=== PATIENT | female | born 1980 | race American Indian/Alaskan Native ===

== ENCOUNTER 2016-10-17 14:18 | Inpatient (IN) | payer OTHER ==
[2016-10-17 15:25] LABS: Anion Gap 16 mmol/L; BUN/Creatinine Ratio 14.28; Blood Urea Nitrogen 10 mg/dL (7-17); Carbon Dioxide 24 mmol/L (22-30); Chloride 104.9 mmol/L (98-107); Glucose 79 mg/dL (65-100); Mean Corpuscular HGB Conc 28 % (30-34); Platelet Count 385 K/mm3 (140-440); Potassium 3.4 mmol/L (3.6-5.0); Red Blood Count 4.18 M/mm3 (3.65-5.03); Sodium 141 mmol/L (137-145); White Blood Count 3.7 K/mm3 (4.5-11.0)
[2016-10-17 15:30] LABS: Hematocrit 24.9 % (30.3-42.9); Hemoglobin 6.9 gm/dl (10.1-14.3); Mean Corpuscular Hemoglobin 17 pg (28-32); Mean Corpuscular Volume 60 fl (79-97); Red Cell Distribution Width 21.7 % (13.2-15.2)
[2016-10-17 16:44] LABS: Blastocytes % (Manual) 0 %
[2016-10-17 16:47] LABS: Anisocytosis 1+
[2016-10-17 16:48] LABS: Diff Status Complete; Elliptocytes Few; Hypochromasia 2+; Microcytosis 1+; Platelet Estimate Consistent w Auto; Stomatocytes Few; Tear Drop Cells Few
[2016-10-17] MEDS ORDERED: NACL 0.9% 500 ML 500 ML IV ONE ×2 (17:49→22:08)
--- NOTE | 2016-10-17 17:53 | Emergency Department Report ---
ED Chest Pain HPI - General Chief Complaint: Chest Pain Stated Complaint: CHEST PAIN Time Seen by Provider: 10/17/16 17:38 Source: patient Mode of arrival: Ambulatory Limitations: No Limitations - History of Present Illness Initial Comments: 35-year-old female with a past medical history of anemia and status post fibroid removal presents to the hospital complains of chest and shortness of breath. Patient has had dyspnea on exertion for about 2 months. Intermittent sharp anterior substernal chest pain starting yesterday. No aggravating or alleviating factors reported. Pain rated 7/10 in intensity. Patient has a history of anemia. She is not sure of the cause of the anemia. Past medical chart review shows patient has been prescribed iron tablets in the past. Patient denies previous history of blood transfusion. She states she has heavy menstrual cycles. Patient uses approximately 6-7 pads per day. Last menstrual cycle was 10/05/2016 7 days. Patient noticed that she began bleeding again today when she went to the bathroom. Severity scale (0 -10): 5 - Related Data Home Medications Medication Instructions Recorded Confirmed Last Taken Ferrous Sulfate [Iron Supplement] 325 mg PO DAILY 08/26/14 10/17/16 06/15/15 Allergies Allergy/AdvReac Type Severity Reaction Status Date / Time No Known Allergies Allergy Verified 11/08/15 08:56 GAMA score - Gama Score Age > 65: (0) No Aspirin use within the Past 7 Days: (0) No 3 or more CAD Risk Factors: (0) No 2 or more Angina events in past 24 hrs: (0) No Known CAD with more than 50% Stenosis: (0) No Elevated Cardiac Markers: (0) No ST Deviation Greater than 0.5mm: (0) No GAMA Score: 0 ED Review of Systems ROS: Stated complaint: CHEST PAIN Other details as noted in HPI Comment: All other systems reviewed and negative Other: Constitutional: No fevers chills or weight loss Eyes: No eye pain visual changes or discharge ENT: No ear pain or throat pain Neck: Denies pain Respiratory: Denies cough wheezing Cardiovascular: As per HPI GI: Denies abdominal pain, nausea, vomiting, diarrhea : Denies dysuria, urinary frequency, or urgency Musculoskeletal: Denies back pain, joint swelling Skin: Denies rash, lesions, erythema Neurologic: Denies headache, numbness, weakness Psychiatric: Denies suicidal ideation, hallucinations ED Past Medical Hx - Past Medical History Hx Hypertension: No Hx Congestive Heart Failure: No Hx Diabetes: No Hx Renal Disease: No Hx Headaches / Migraines: Yes Hx Asthma: No Hx COPD: No Additional medical history: Anemia - Surgical History Additional Surgical History: csection x 2, Fibroid tumor removal - Social History Smoking Status: Never Smoker Substance Use Type: None - Medications Home Medications: Home Medications Medication Instructions Recorded Confirmed Last Taken Type Ferrous Sulfate [Iron Supplement] 325 mg PO DAILY 08/26/14 10/17/16 06/15/15 History ED Physical Exam - General Limitations: No Limitations - Other Other exam information: General: No limitations, patient is alert in no acute distress Head exam: Atraumatic, normocephalic Eyes exam: Normal appearance ENT: Moist mucous membrane, normal oropharynx Neck exam: Normal inspection Respiratory exam: Clear to auscultation bilateral, no wheezes, rales, crackles Cardiovascular: Normal rate and rhythm, normal heart sounds Abdomen: Soft, nondistended, and nontender, with normal bowel sounds, no rebound, or guarding Extremity: Full range of motion normal inspection no deformity, no calf tenderness or edema Back: Normal Inspection, full range of motion, no tenderness Neurologic: Alert, oriented x3, cranial nerves intact, no motor or sensory deficit Psychiatric: normal affect, normal mood Skin: Warm, dry, intact ED Course Vital Signs 10/17/16 10/17/16 10/17/16 14:39 17:38 17:39 Temperature 98.5 F Pulse Rate 83 81 Respiratory 18 18 13 Rate Blood Pressure 117/68 137/85 O2 Sat by Pulse 100 98 100 Oximetry 10/17/16 10/17/16 10/17/16 17:41 17:43 17:45 Temperature Pulse Rate 82 75 80 Respiratory 21 11 L 12 Rate Blood Pressure 137/85 137/85 131/75 O2 Sat by Pulse 100 100 100 Oximetry 10/17/16 10/17/16 10/17/16 17:47 17:49 17:51 Temperature Pulse Rate 73 73 67 Respiratory 17 12 13 Rate Blood Pressure 131/75 131/75 131/75 O2 Sat by Pulse 100 100 Oximetry 10/17/16 10/17/16 10/17/16 17:53 17:55 17:57 Temperature Pulse Rate 69 66 69 Respiratory 13 16 14 Rate Blood Pressure 131/75 131/75 131/75 O2 Sat by Pulse 100 100 100 Oximetry 10/17/16 10/17/16 10/17/16 17:59 18:01 18:03 Temperature Pulse Rate 67 71 71 Respiratory 21 13 16 Rate Blood Pressure 131/75 131/75 131/75 O2 Sat by Pulse 100 100 100 Oximetry 10/17/16 10/17/16 10/17/16 18:05 18:07 18:09 Temperature Pulse Rate 76 68 69 Respiratory 19 22 19 Rate Blood Pressure 131/75 131/75 131/75 O2 Sat by Pulse 100 100 100 Oximetry 10/17/16 10/17/16 10/17/16 18:11 18:13 18:15 Temperature Pulse Rate 69 71 70 Respiratory 16 13 13 Rate Blood Pressure 131/75 131/75 131/75 O2 Sat by Pulse 100 100 100 Oximetry ED Medical Decision Making - Lab Data Result diagrams: 10/17/16 14:58 10/17/16 14:58 Lab Results 10/17/16 10/17/16 Range/Units 14:58 14:58 WBC 3.7 L (4.5-11.0) K/mm3 RBC 4.18 (3.65-5.03) M/mm3 Hgb 6.9 L (10.1-14.3) gm/dl Hct 24.9 L (30.3-42.9) % MCV 60 L (79-97) fl MCH 17 L (28-32) pg MCHC 28 L (30-34) % RDW 21.7 H (13.2-15.2) % Plt Count 385 (140-440) K/mm3 Lymph % (Auto) [employer] [place] % (Auto) [employer] Eos % (Auto) [employer] Baso % (Auto) [employer] Lymph # [employer] [place] # [employer] Eos # [employer] Baso # [employer] Add Manual Diff Complete Total Counted 100 Seg Neutrophils % [employer] Seg Neuts % (Manual) 54.0 (40.0-70.0) % Band Neutrophils % 1.0 % Lymphocytes % (Manual) 35.0 (13.4-35.0) % Reactive Lymphs % (Man) 1.0 % Monocytes % (Manual) 5.0 (0.0-7.3) % Eosinophils % (Manual) 3.0 (0.0-4.3) % Basophils % (Manual) 1.0 (0.0-1.8) % Metamyelocytes % 0 % Myelocytes % 0 % Promyelocytes % 0 % Blast Cells % 0 % Nucleated RBC % Not Reportable Seg Neutrophils # [employer] Seg Neutrophils # Man 2.0 (1.8-7.7) K/mm3 Band Neutrophils # 0.0 K/mm3 Lymphocytes # (Manual) 1.3 (1.2-5.4) K/mm3 Abs React Lymphs (Man) 0.0 K/mm3 Monocytes # (Manual) 0.2 (0.0-0.8) K/mm3 Eosinophils # (Manual) 0.1 (0.0-0.4) K/mm3 Basophils # (Manual) 0.0 (0.0-0.1) K/mm3 Metamyelocytes # 0.0 K/mm3 Myelocytes # 0.0 K/mm3 Promyelocytes # 0.0 K/mm3 Blast Cells # 0.0 K/mm3 WBC Morphology Not Reportable Hypersegmented Neuts Not Reportable Hyposegmented Neuts Not Reportable Hypogranular Neuts Not Reportable Smudge Cells Not Reportable Toxic Granulation Not Reportable Toxic Vacuolation Not Reportable Dohle Bodies Not Reportable Pelger-Huet Anomaly Not Reportable Thais Rods Not Reportable Platelet Estimate Consistent w auto Clumped Platelets Not Reportable Plt Clumps, EDTA Not Reportable Large Platelets Not Reportable Giant Platelets Not Reportable Platelet Satelliting Not Reportable Plt Morphology Comment Not Reportable RBC Morphology Not Reportable Dimorphic RBCs Not Reportable Polychromasia Not Reportable Hypochromasia 2+ Poikilocytosis Not Reportable Anisocytosis 1+ Microcytosis 1+ Macrocytosis Not Reportable Spherocytes Not Reportable Pappenheimer Bodies Not Reportable Sickle Cells Not Reportable Target Cells Not Reportable Tear Drop Cells Few Ovalocytes Not Reportable Stomatocytes Few Helmet Cells Not Reportable [place] Bodies Not Reportable [place] Rings Not Reportable Catherine Cells Not Reportable Bite Cells Not Reportable Crenated Cell Not Reportable Elliptocytes Few Acanthocytes (Spur) Not Reportable Rouleaux Not Reportable Hemoglobin C Crystals Not Reportable Schistocytes Not Reportable Malaria parasites Not Reportable Kana Bodies Not Reportable Hem Pathologist Commnt No Sodium 141 (137-145) mmol/L Potassium 3.4 L (3.6-5.0) mmol/L Chloride 104.9 (98-107) mmol/L Carbon Dioxide 24 (22-30) mmol/L Anion Gap 16 mmol/L BUN 10 (7-17) mg/dL Creatinine 0.7 (0.7-1.2) mg/dL Estimated GFR > 60 ml/min BUN/Creatinine Ratio 14.28 % Glucose 79 (65-100) mg/dL Calcium 9.0 (8.4-10.2) mg/dL Troponin T < 0.010 (0.00-0.029) ng/mL urine negative. - EKG Data When compared to previous EKG there are: no significant change (sinus rhythm 69 nonspecific T-wave abnormalities) - Medical Decision Making Plan to admit patient to hospital for treatment of symptomatic anemia. 2 units of RBCs ordered. By mouth potassium given. Iron studies pending - Differential Diagnosis anemia, PE, unstable angina, atypical chest pain Critical Care Time: No Critical care attestation.: If time is entered above; I have spent that time in minutes in the direct care of this critically ill patient, excluding procedure time. ED Disposition Clinical Impression: Symptomatic anemia, Menorrhagia, Hypokalemia, Atypical chest pain, Iron deficiency anemia Disposition: OP ADMITTED IP TO THIS HOSP Is pt being admited?: Yes Condition: Stable Time of Disposition: 17:52 (Dr. Malik/[facility])
[2016-10-17] MEDS ORDERED: K-DUR PO ONE (18:01)
--- NOTE | 2016-10-17 23:38 | History and Physical Report ---
History of Present Illness Date of examination: 10/17/16 Date of admission: 10/17/16 17:53 Chief complaint: Feeling weak History of present illness: 35-year-old female with a past medical history of anemia and status post fibroid removal presents to the hospital complains of chest and shortness of breath. Patient has had dyspnea on exertion for about 2 months. Intermittent sharp anterior substernal chest pain starting yesterday. No aggravating or alleviating factors reported. Pain rated 7/10 in intensity. Patient has a history of anemia. She is not sure of the cause of the anemia. Past medical chart review shows patient has been prescribed iron tablets in the past. Patient denies previous history of blood transfusion. She states she has heavy menstrual cycles. Patient uses approximately 6-7 pads per day. Last menstrual cycle was 10/05/2016 7 days. Patient noticed that she began bleeding again today when she went to the bathroom. Past History Past Medical History: anemia Past Surgical History: Other (Fibroid removal) Social history: no significant social history, lives with family, full code Medications and Allergies Allergies Allergy/AdvReac Type Severity Reaction Status Date / Time No Known Allergies Allergy Verified 11/08/15 08:56 Home Medications Medication Instructions Recorded Confirmed Last Taken Type Ferrous Sulfate [Iron Supplement] 325 mg PO DAILY 08/26/14 10/17/16 06/15/15 History Review of Systems All systems: negative Constitutional: no weight loss, no weight gain Ears, nose, mouth and throat: hoarseness, sore throat Breasts: deferred Cardiovascular: chest pain, dyspnea on exertion Respiratory: no cough with sputum, no congestion Gastrointestinal: no nausea, no vomiting Genitourinary Female: menorrhagia, no dysuria, no urinary frequency, no urgency , no stress incontinence Menstruation: ammenorrhea, period heavy Musculoskeletal: no neck pain, no myalgias Integumentary: no rash, no pruritis, no redness, no sores Neurological: no paralysis, no weakness, no parathesias Psychiatric: no hypersomnia, no suicidal ideation Endocrine: no cold intolerance, no heat intolerance, no polydipsia, no polyuria Hematologic/Lymphatic: no easy bruising, no easy bleeding Allergic/Immunologic: no urticaria, no allergic rhinitis, no wheezing Exam - Constitutional Vitals: Temp Pulse Resp BP Pulse Ox 98.2 F 63 16 126/76 100 10/17/16 23:15 10/17/16 23:15 10/17/16 23:15 10/17/16 23:15 10/17/16 18:15 General appearance: Present: no acute distress, well-nourished - EENT Eyes: Present: PERRL ENT: hearing intact, clear oral mucosa - Neck Neck: Present: supple, normal ROM - Respiratory Respiratory effort: normal Respiratory: bilateral: CTA - Cardiovascular Heart Sounds: Present: S1 & S2. Absent: rub, click - Extremities Extremities: pulses symmetrical, No edema Peripheral Pulses: within normal limits - Abdominal General gastrointestinal: Present: soft, non-tender, non-distended, normal bowel sounds Female genitourinary: Present: normal - Integumentary Integumentary: Present: clear, warm, dry - Musculoskeletal Musculoskeletal: gait normal, strength equal bilaterally - Psychiatric Psychiatric: appropriate mood/affect, intact judgment & insight - Neurologic Neurologic: CNII-XII intact, moves all extremities Results - Labs CBC & Chem 7: 10/18/16 07:56 10/18/16 07:56 Labs: Laboratory Last Values WBC 3.7 K/mm3 (4.5-11.0) L 10/17/16 14:58 RBC 4.18 M/mm3 (3.65-5.03) 10/17/16 14:58 Hgb 6.9 gm/dl (10.1-14.3) L 10/17/16 14:58 Hct 24.9 % (30.3-42.9) L 10/17/16 14:58 MCV 60 fl (79-97) L 10/17/16 14:58 MCH 17 pg (28-32) L 10/17/16 14:58 MCHC 28 % (30-34) L 10/17/16 14:58 RDW 21.7 % (13.2-15.2) H 10/17/16 14:58 Plt Count 385 K/mm3 (140-440) 10/17/16 14:58 Lymph % (Auto) Hydraulics Engineer 10/17/16 14:58 [place] % (Auto) Hydraulics Engineer 10/17/16 14:58 Eos % (Auto) Hydraulics Engineer 10/17/16 14:58 Baso % (Auto) Hydraulics Engineer 10/17/16 14:58 Lymph # Hydraulics Engineer 10/17/16 14:58 [place] # Hydraulics Engineer 10/17/16 14:58 Eos # Hydraulics Engineer 10/17/16 14:58 Baso # Hydraulics Engineer 10/17/16 14:58 Add Manual Diff Complete 10/17/16 14:58 Total Counted 100 10/17/16 14:58 Seg Neutrophils % Hydraulics Engineer 10/17/16 14:58 Seg Neuts % (Manual) 54.0 % (40.0-70.0) 10/17/16 14:58 Band Neutrophils % 1.0 % 10/17/16 14:58 Lymphocytes % (Manual) 35.0 % (13.4-35.0) 10/17/16 14:58 Reactive Lymphs % (Man) 1.0 % 10/17/16 14:58 Monocytes % (Manual) 5.0 % (0.0-7.3) 10/17/16 14:58 Eosinophils % (Manual) 3.0 % (0.0-4.3) 10/17/16 14:58 Basophils % (Manual) 1.0 % (0.0-1.8) 10/17/16 14:58 Metamyelocytes % 0 % 10/17/16 14:58 Myelocytes % 0 % 10/17/16 14:58 Promyelocytes % 0 % 10/17/16 14:58 Blast Cells % 0 % 10/17/16 14:58 Nucleated RBC % Not Reportable 10/17/16 14:58 Seg Neutrophils # Hydraulics Engineer 10/17/16 14:58 Seg Neutrophils # Man 2.0 K/mm3 (1.8-7.7) 10/17/16 14:58 Band Neutrophils # 0.0 K/mm3 10/17/16 14:58 Lymphocytes # (Manual) 1.3 K/mm3 (1.2-5.4) 10/17/16 14:58 Abs React Lymphs (Man) 0.0 K/mm3 10/17/16 14:58 Monocytes # (Manual) 0.2 K/mm3 (0.0-0.8) 10/17/16 14:58 Eosinophils # (Manual) 0.1 K/mm3 (0.0-0.4) 10/17/16 14:58 Basophils # (Manual) 0.0 K/mm3 (0.0-0.1) 10/17/16 14:58 Metamyelocytes # 0.0 K/mm3 10/17/16 14:58 Myelocytes # 0.0 K/mm3 10/17/16 14:58 Promyelocytes # 0.0 K/mm3 10/17/16 14:58 Blast Cells # 0.0 K/mm3 10/17/16 14:58 WBC Morphology Not Reportable 10/17/16 14:58 Hypersegmented Neuts Not Reportable 10/17/16 14:58 Hyposegmented Neuts Not Reportable 10/17/16 14:58 Hypogranular Neuts Not Reportable 10/17/16 14:58 Smudge Cells Not Reportable 10/17/16 14:58 Toxic Granulation Not Reportable 10/17/16 14:58 Toxic Vacuolation Not Reportable 10/17/16 14:58 Dohle Bodies Not Reportable 10/17/16 14:58 Pelger-Huet Anomaly Not Reportable 10/17/16 14:58 Thais Rods Not Reportable 10/17/16 14:58 Platelet Estimate Consistent w auto 10/17/16 14:58 Clumped Platelets Not Reportable 10/17/16 14:58 Plt Clumps, EDTA Not Reportable 10/17/16 14:58 Large Platelets Not Reportable 10/17/16 14:58 Giant Platelets Not Reportable 10/17/16 14:58 Platelet Satelliting Not Reportable 10/17/16 14:58 Plt Morphology Comment Not Reportable 10/17/16 14:58 RBC Morphology Not Reportable 10/17/16 14:58 Dimorphic RBCs Not Reportable 10/17/16 14:58 Polychromasia Not Reportable 10/17/16 14:58 Hypochromasia 2+ 10/17/16 14:58 Poikilocytosis Not Reportable 10/17/16 14:58 Anisocytosis 1+ 10/17/16 14:58 Microcytosis 1+ 10/17/16 14:58 Macrocytosis Not Reportable 10/17/16 14:58 Spherocytes Not Reportable 10/17/16 14:58 Pappenheimer Bodies Not Reportable 10/17/16 14:58 Sickle Cells Not Reportable 10/17/16 14:58 Target Cells Not Reportable 10/17/16 14:58 Tear Drop Cells Few 10/17/16 14:58 Ovalocytes Not Reportable 10/17/16 14:58 Stomatocytes Few 10/17/16 14:58 Helmet Cells Not Reportable 10/17/16 14:58 [place] Bodies Not Reportable 10/17/16 14:58 [place] Rings Not Reportable 10/17/16 14:58 Catherine Cells Not Reportable 10/17/16 14:58 Bite Cells Not Reportable 10/17/16 14:58 Crenated Cell Not Reportable 10/17/16 14:58 Elliptocytes Few 10/17/16 14:58 Acanthocytes (Spur) Not Reportable 10/17/16 14:58 Rouleaux Not Reportable 10/17/16 14:58 Hemoglobin C Crystals Not Reportable 10/17/16 14:58 Schistocytes Not Reportable 10/17/16 14:58 Malaria parasites Not Reportable 10/17/16 14:58 Kana Bodies Not Reportable 10/17/16 14:58 Hem Pathologist Commnt No 10/17/16 14:58 Sodium 141 mmol/L (137-145) 10/17/16 14:58 Potassium 3.4 mmol/L (3.6-5.0) L 10/17/16 14:58 Chloride 104.9 mmol/L (98-107) 10/17/16 14:58 Carbon Dioxide 24 mmol/L (22-30) 10/17/16 14:58 Anion Gap 16 mmol/L 10/17/16 14:58 BUN 10 mg/dL (7-17) 10/17/16 14:58 Creatinine 0.7 mg/dL (0.7-1.2) 10/17/16 14:58 Estimated GFR > 60 ml/min 10/17/16 14:58 BUN/Creatinine Ratio 14.28 % 10/17/16 14:58 Glucose 79 mg/dL (65-100) 10/17/16 14:58 Calcium 9.0 mg/dL (8.4-10.2) 10/17/16 14:58 Iron 12 ug/dL (37-170) L 10/17/16 14:58 TIBC 420.00 mcg/dL (250-450) 10/17/16 14:58 % Saturation 2.86 % 10/17/16 14:58 Transferrin 300 mg/dl (192-382) 10/17/16 14:58 Troponin T < 0.010 ng/mL (0.00-0.029) 10/17/16 14:58 Urine HCG, Qual Negative (Negative) 10/17/16 17:52 Blood Type O POSITIVE 10/17/16 17:50 Antibody Screen Negative 10/17/16 17:50 Crossmatch See Detail 10/17/16 17:50 Assessment and Plan Advance Directives: Yes (Full code) VTE prophylaxis?: Chemical - Patient Problems (1) Symptomatic anemia Current Visit: Yes Status: Acute Plan to address problem: Transfuse 2 units of Blood (2) Chest pain Current Visit: Yes Status: Acute Qualifiers: Chest pain type: C (3) Atypical chest pain Current Visit: Yes Status: Acute Plan to address problem: Lexiscan on Tuesday and discharge if negative. (4) Discharge planning issues Current Visit: Yes Status: Acute Plan to address problem: To follow with [employer] and take iron supplements on reg basis
[2016-10-17] MEDS ORDERED: PERCOCET 5/325 PO PRN (23:39)
[2016-10-17] MEDS ORDERED: ZOFRAN IV PRN (23:39)
[2016-10-17] MEDS ORDERED: DULCOLAX PR PRN (23:39)
[2016-10-17] MEDS ORDERED: MILK OF MAGNESIA PO PRN (23:39)
[2016-10-17] MEDS ORDERED: DILAUDID IV PRN (23:39)
[2016-10-18] MEDS: TYLENOL PO PRN (04:31)
[2016-10-18 08:27] LABS: Mean Corpuscular HGB Conc 29 % (30-34); Platelet Count 332 K/mm3 (140-440); Red Blood Count 4.75 M/mm3 (3.65-5.03); White Blood Count 4.1 K/mm3 (4.5-11.0)
[2016-10-18 08:33] LABS: Hematocrit 30.6 % (30.3-42.9); Hemoglobin 8.8 gm/dl (10.1-14.3)
[2016-10-18 08:34] LABS: Mean Corpuscular Hemoglobin 19 pg (28-32); Mean Corpuscular Volume 64 fl (79-97); Red Cell Distribution Width 25.2 % (13.2-15.2)
[2016-10-18 08:58] LABS: Alanine Aminotransferase 15 units/L (7-56); Albumin 3.9 g/dL (3.9-5); Albumin/Globulin Ratio 1.4 %; Alkaline Phosphatase 45 units/L (35-129); Anion Gap 15 mmol/L; BUN/Creatinine Ratio 16.66; Bilirubin,Total 0.3 mg/dL (0.1-1.2); Blood Urea Nitrogen 10 mg/dL (7-17); Calcium 8.9 mg/dL (8.4-10.2); Carbon Dioxide 24 mmol/L (22-30); Chloride 107.1 mmol/L (98-107); Glucose 92 mg/dL (65-100); Potassium 4.8 mmol/L (3.6-5.0); Sodium 141 mmol/L (137-145); Total Protein 6.7 g/dL (6.3-8.2)
[2016-10-18] MEDS ORDERED: SODIUM CHLORIDE FLUSH SYRINGE 10 ML IV PRN (09:13)
[2016-10-18 10:05] LABS: Basophils % (Manual) 0 % (0.0-1.8); Blastocytes % (Manual) 0 %
[2016-10-18 10:06] LABS: Anisocytosis 2+; Hypochromasia 2+; Microcytosis 2+
[2016-10-18 10:07] LABS: Diff Status Complete; Poikilocytosis 1+
--- NOTE | 2016-10-18 10:47 | Progress Note ---
Assessment and Plan Assessment and plan: Menorrhagia. She has been having heavy periods. She has history of uterine fibroids and had myomectomy few years ago. Will consult Retail Service Technician. Obtain pelvic US to look for fibroid. Anemia due to chronic blood loss from menorrhagia. Hgb 6.9 on presentation, now 8.4 after 2 Units PRBC Chest pain. For stress test tomorrow. Hypokalemia. Now resolved after replacement. DVT prophylaxis. SCDs only Full code History Interval history: chest pain, general weakness Heavy periods Hospitalist Physical - Physical exam Narrative exam: Gen: Not in acute distress, Neck:supple, no JVD HEENT: Normocephalic, atraumatic Lungs:Clear to auscultation bilaterally, no rales or wheeze Heart:S1 and S2 regular, no murmurs,rubs or gallop Abdomen:soft, non tender, non distended, normal bowel sounds Ext: No edema, clubbing or cyanosis Neuro:Awake,alert,oriented x 3. no facial asymmetry, normal speech, Psych:normal mood - Constitutional Vitals: Temp Pulse Resp BP Pulse Ox 98.2 F 60 18 119/80 100 10/18/16 08:44 10/18/16 08:44 10/18/16 08:44 10/18/16 08:44 10/18/16 09:28 General appearance: Present: no acute distress, well-nourished Results - Labs CBC & Chem 7: 10/18/16 07:56 10/18/16 07:56 Labs: Laboratory Last Values WBC 4.1 K/mm3 (4.5-11.0) L 10/18/16 07:56 RBC 4.75 M/mm3 (3.65-5.03) 10/18/16 07:56 Hgb 8.8 gm/dl (10.1-14.3) L 10/18/16 07:56 Hct 30.6 % (30.3-42.9) 10/18/16 07:56 MCV 64 fl (79-97) L D 10/18/16 07:56 MCH 19 pg (28-32) L 10/18/16 07:56 MCHC 29 % (30-34) L 10/18/16 07:56 RDW 25.2 % (13.2-15.2) H 10/18/16 07:56 Plt Count 332 K/mm3 (140-440) 10/18/16 07:56 Lymph % (Auto) Cmm Programmer 10/17/16 14:58 Coffey % (Auto) Cmm Programmer 10/17/16 14:58 Eos % (Auto) Cmm Programmer 10/17/16 14:58 Baso % (Auto) Cmm Programmer 10/17/16 14:58 Lymph # Cmm Programmer 10/17/16 14:58 Coffey # Cmm Programmer 10/17/16 14:58 Eos # Cmm Programmer 10/17/16 14:58 Baso # Cmm Programmer 10/17/16 14:58 Add Manual Diff Complete 10/18/16 07:56 Total Counted 100 10/18/16 07:56 Seg Neutrophils % Cmm Programmer 10/17/16 14:58 Seg Neuts % (Manual) 54.0 % (40.0-70.0) 10/18/16 07:56 Band Neutrophils % 2.0 % 10/18/16 07:56 Lymphocytes % (Manual) 32 % (13.4-35.0) 10/18/16 07:56 Reactive Lymphs % (Man) 0 % 10/18/16 07:56 Monocytes % (Manual) 10 % (0.0-7.3) H 10/18/16 07:56 Eosinophils % (Manual) 2.0 % (0.0-4.3) 10/18/16 07:56 Basophils % (Manual) 0 % (0.0-1.8) 10/18/16 07:56 Metamyelocytes % 0 % 10/18/16 07:56 Myelocytes % 0 % 10/18/16 07:56 Promyelocytes % 0 % 10/18/16 07:56 Blast Cells % 0 % 10/18/16 07:56 Nucleated RBC % Not Reportable 10/18/16 07:56 Seg Neutrophils # Cmm Programmer 10/17/16 14:58 Seg Neutrophils # Man 2.2 K/mm3 (1.8-7.7) 10/18/16 07:56 Band Neutrophils # 0.1 K/mm3 10/18/16 07:56 Lymphocytes # (Manual) 1.2 K/mm3 (1.2-5.4) 10/18/16 07:56 Abs React Lymphs (Man) 0.0 K/mm3 10/18/16 07:56 Monocytes # (Manual) 0.5 K/mm3 (0.0-0.8) 10/18/16 07:56 Eosinophils # (Manual) 0.1 K/mm3 (0.0-0.4) 10/18/16 07:56 Basophils # (Manual) 0.0 K/mm3 (0.0-0.1) 10/18/16 07:56 Metamyelocytes # 0.0 K/mm3 10/18/16 07:56 Myelocytes # 0.0 K/mm3 10/18/16 07:56 Promyelocytes # 0.0 K/mm3 10/18/16 07:56 Blast Cells # 0.0 K/mm3 10/18/16 07:56 WBC Morphology Not Reportable 10/18/16 07:56 Hypersegmented Neuts Not Reportable 10/18/16 07:56 Hyposegmented Neuts Not Reportable 10/18/16 07:56 Hypogranular Neuts Not Reportable 10/18/16 07:56 Smudge Cells Not Reportable 10/18/16 07:56 Toxic Granulation Not Reportable 10/18/16 07:56 Toxic Vacuolation Not Reportable 10/18/16 07:56 Dohle Bodies Not Reportable 10/18/16 07:56 Pelger-Huet Anomaly Not Reportable 10/18/16 07:56 Thasi Rods Not Reportable 10/18/16 07:56 Platelet Estimate Not Reportable 10/18/16 07:56 Clumped Platelets Not Reportable 10/18/16 07:56 Plt Clumps, EDTA Not Reportable 10/18/16 07:56 Large Platelets Not Reportable 10/18/16 07:56 Giant Platelets Not Reportable 10/18/16 07:56 Platelet Satelliting Not Reportable 10/18/16 07:56 Plt Morphology Comment Not Reportable 10/18/16 07:56 RBC Morphology Not Reportable 10/18/16 07:56 Dimorphic RBCs Yes 10/18/16 07:56 Polychromasia Not Reportable 10/18/16 07:56 Hypochromasia 2+ 10/18/16 07:56 Poikilocytosis 1+ 10/18/16 07:56 Anisocytosis 2+ 10/18/16 07:56 Microcytosis 2+ 10/18/16 07:56 Macrocytosis Not Reportable 10/18/16 07:56 Spherocytes Not Reportable 10/18/16 07:56 Pappenheimer Bodies Not Reportable 10/18/16 07:56 Sickle Cells Not Reportable 10/18/16 07:56 Target Cells Not Reportable 10/18/16 07:56 Tear Drop Cells Not Reportable 10/18/16 07:56 Ovalocytes Not Reportable 10/18/16 07:56 Stomatocytes Few 10/17/16 14:58 Helmet Cells Not Reportable 10/18/16 07:56 Clark-Stepney Bodies Not Reportable 10/18/16 07:56 Homestead Rings Not Reportable 10/18/16 07:56 Greenfield Cells Not Reportable 10/18/16 07:56 Bite Cells Not Reportable 10/18/16 07:56 Crenated Cell Not Reportable 10/18/16 07:56 Elliptocytes Not Reportable 10/18/16 07:56 Acanthocytes (Spur) Not Reportable 10/18/16 07:56 Rouleaux Not Reportable 10/18/16 07:56 Hemoglobin C Crystals Not Reportable 10/18/16 07:56 Schistocytes Not Reportable 10/18/16 07:56 Malaria parasites Not Reportable 10/18/16 07:56 Kana Bodies Not Reportable 10/18/16 07:56 Hem Pathologist Commnt No 10/18/16 07:56 Sodium 141 mmol/L (137-145) 10/18/16 07:56 Potassium 4.8 mmol/L (3.6-5.0) D 10/18/16 07:56 Chloride 107.1 mmol/L (98-107) H 10/18/16 07:56 Carbon Dioxide 24 mmol/L (22-30) 10/18/16 07:56 Anion Gap 15 mmol/L 10/18/16 07:56 BUN 10 mg/dL (7-17) 10/18/16 07:56 Creatinine 0.6 mg/dL (0.7-1.2) L 10/18/16 07:56 Estimated GFR > 60 ml/min 10/18/16 07:56 BUN/Creatinine Ratio 16.66 % 10/18/16 07:56 Glucose 92 mg/dL (65-100) 10/18/16 07:56 Calcium 8.9 mg/dL (8.4-10.2) 10/18/16 07:56 Iron 12 ug/dL (37-170) L 10/17/16 14:58 TIBC 420.00 mcg/dL (250-450) 10/17/16 14:58 % Saturation 2.86 % 10/17/16 14:58 Transferrin 300 mg/dl (192-382) 10/17/16 14:58 Total Bilirubin 0.3 mg/dL (0.1-1.2) 10/18/16 07:56 AST 18 units/L (5-40) 10/18/16 07:56 ALT 15 units/L (7-56) 10/18/16 07:56 Alkaline Phosphatase 45 units/L (35-129) 10/18/16 07:56 Troponin T < 0.010 ng/mL (0.00-0.029) 10/17/16 14:58 Total Protein 6.7 g/dL (6.3-8.2) 10/18/16 07:56 Albumin 3.9 g/dL (3.9-5) 10/18/16 07:56 Albumin/Globulin Ratio 1.4 % 10/18/16 07:56 Urine HCG, Qual Negative (Negative) 10/17/16 17:52 Blood Type O POSITIVE 10/17/16 17:50 Antibody Screen Negative 10/17/16 17:50 Crossmatch See Detail 10/17/16 17:50
[2016-10-18] MEDS: FEOSOL PO SCH (10:56)
[2016-10-18 11:25] LABS: Creatine Kinase 72 units/L (30-135); Creatine Kinase MB < 1.0 ng/mL (0.0-4.0)
--- NOTE | 2016-10-18 14:19 | Admit Criteria Form ---
Admission Criteria Documentation: ANEMIA, IRON DEFICIENCY OR UNSPECIFIED Clinical Indications for Inpatient Care (Place 'X' for any and all applicable criteria): Admission is indicated for ANY ONE of the following(1)(2)(3)(4)(5)(6)(7): [X] I. Inpatient admission required rather than observation care (Also use Anemia, Iron Deficiency or Unspecified: Observation Care guideline as appropriate) because of ANY ONE of the following: [] a) Hemodynamic instability that is severe or persistent [] b) Active bleeding that cannot be rapidly controlled [X] c) CVS symptoms (i.e., dyspnea, chest pain, heart failure) that are severe or persistent [] d) Neurologic symptoms (i.e., cognitive impairment, recurrent syncope or near syncope) that are severe or persistent [] e) Cardiac arrhythmias of immediate concern [] f) Acute peripheral ischemia (e.g., pulseless, cool, mottled, or cyanotic extremity) [] g) High-risk low platelet count [] h) Acute renal failure [] i) Ongoing transfusion for blood loss (greater than 2 units) [] j) IV fluid to replace significant ongoing (eg, >24 hours) losses (> 3 L/m2 per day) [] k) Pulmonary artery catheter monitoring [] l) Supplemental oxygen or respiratory treatments for over 24 hours that are performable only in acute inpatient setting [] m) Immediate inpatient surgery [] n) Other condition, treatment or monitoring requiring inpatient admission [] II Active massive hemorrhage [] III. Active hemolysis with rapidly progressive anemia [A](6) Extended stay beyond goal length of stay may be needed for (17)(18) []a) Diagnosed cause of anemia requiring longer hospitalization (eg, active GI bleeding, immune hemolysis requiring electrophoresis, complications of malignancy requiring acute care []b) Continued emergent anemia indicators (23) []c) Transfusion reactions []d) Associated leukopenia or thrombocytopenia needing inpatient care []e) Active comorbidities (eg, renal failure, heart failure) The original [facility] Care Guidelines content created by [facility] Care Guidelines has been revised. The portions of the content which have been revised are identified through the use of italic text or in bold. [facility] Guidelines has neither reviewed nor approved the modified material. All other unmodified content is copyright [facility] Care Guidelines. Please see references footnoted in the original [facility] edition 2016 Admission Criteria Met: Yes
[2016-10-18 15:41] LABS: Creatine Kinase 68 units/L (30-135); Creatine Kinase MB < 1.0 ng/mL (0.0-4.0)
--- NOTE | 2016-10-18 19:11 | Consultation ---
History of Present Illness Consult date: 10/18/16 Reason for consult: menorrhagia History of present illness: 35-year-old female LMP several days ago . She has past medical history of anemia and status post fibroid removal presents to the hospital complains of chest and shortness of breath. Patient has had dyspnea on exertion for about 2 months. Intermittent sharp anterior substernal chest pain starting yesterday. No aggravating or alleviating factors reported. Pain rated 7/10 in intensity. Patient has a history of anemia. She is not sure of the cause of the anemia. Past medical chart review shows patient has been prescribed iron tablets in the past. Patient denies previous history of blood transfusion. She states she has heavy menstrual cycles. Patient uses approximately 6-7 pads per day. Last menstrual cycle was 10/05/2016 7 days. Patient noticed that she began bleeding again today when she went to the bathroom. patient is currently not bleeding and states that she has a hx of fibroids but has not been evaluated in many years. She had a myomectomy in 2005. Past History Past Medical History: heart disease, blood transfusion (this admission) Past Surgical History: section (x2), myomectomy, other (BTL) Family/Genetic History: heart disease (father with pacemaker ; ), stroke (mother brain aneurysm) Social history: no significant social history - Obstetrical History : 2 Medications and Allergies Allergies Allergy/AdvReac Type Severity Reaction Status Date / Time No Known Allergies Allergy Verified 11/08/15 08:56 Home Medications Medication Instructions Recorded Confirmed Last Taken Type Ferrous Sulfate [Iron Supplement] 325 mg PO DAILY 08/26/14 10/17/16 06/15/15 History Active Meds: Active Medications Acetaminophen (Tylenol) 650 mg PO Q4H PRN PRN Reason: Pain MILD(1-3)/Fever >100.5/TRUJILLO Last Admin: 10/18/16 04:31 Dose: 650 mg Bisacodyl (Dulcolax) 10 mg AK QDAY PRN PRN Reason: Constipation unrelieved by MOM Ferrous Sulfate (Feosol) 325 mg PO DAILY [facility] Last Admin: 10/18/16 10:56 Dose: 325 mg Hydromorphone HCl (Dilaudid) 0.5 mg IV Q3H PRN PRN Reason: Pain , Severe (7-10) Magnesium Hydroxide (Milk Of Magnesia) 30 ml PO Q4H PRN PRN Reason: Constipation Ondansetron HCl (Zofran) 4 mg IV Q8H PRN PRN Reason: N/V unrelieved by Reglan Oxycodone/Acetaminophen (Percocet 5/325) 1 tab PO Q6H PRN PRN Reason: Pain, Moderate (4-6) Sodium Chloride (Sodium Chloride Flush Syringe 10 Ml) 10 ml IV PRN PRN PRN Reason: LINE FLUSH Review of Systems Constitutional: fatigue, weakness Eyes: deferred Ears, nose, mouth and throat: deferred Cardiovascular: chest pain, shortness of breath, dyspnea on exertion Breasts: deferred Genitourinary: normal appearance, no vaginal bleeding, no vaginal discharge, no leakage of fluid, no dysuria, no pelvic pain, no genital sores Rectal Exam: deferred - Vital Signs Vital signs: Vital Signs Temp Pulse Resp BP Pulse Ox 98.5 F 83 18 117/68 100 10/17/16 14:39 10/17/16 14:39 10/17/16 14:39 10/17/16 14:39 10/17/16 14:39 Temp Pulse Resp BP Pulse Ox 98.6 F 66 16 114/78 100 10/18/16 16:22 10/18/16 16:22 10/18/16 16:22 10/18/16 16:22 10/18/16 16:22 - Physical Exam Breasts: Positive: deferred Cardiovascular: Regular rate, Normal S1, Normal S2 Lungs: Positive: Clear to auscultation, Normal air movement Abdomen: Positive: normal appearance, soft, normal bowel sounds, mass (20 weeks size uterus ) Genitourinary (Female): Positive: normal external genitalia, normal perenium Vulva: both: normal Vagina: Positive: normal moisture. Negative: discharge Cervix: Negative: lesion, discharge Uterus: Positive: enlarged (20 weeks globular ), nodular Adnexa: both: normal Anus/Rectum: Positive: normal perianal skin, heme negative Extremities: Positive: normal Deep Tendon Reflex Grade: Normal +2 Results Result Diagrams: 10/18/16 07:56 10/18/16 07:56 Abnormal lab results 10/18/16 10/18/16 Range/Units 07:56 07:56 WBC 4.1 L (4.5-11.0) K/mm3 Hgb 8.8 L (10.1-14.3) gm/dl MCV 64 L D (79-97) fl MCH 19 L (28-32) pg MCHC 29 L (30-34) % RDW 25.2 H (13.2-15.2) % Monocytes % (Manual) 10 H (0.0-7.3) % Chloride 107.1 H (98-107) mmol/L Creatinine 0.6 L (0.7-1.2) mg/dL All other labs normal. Ultrasound: pending Assessment and Plan A/P Menorrhagia , uterine fibroids, chronic iron deficient anemia 1. recommnended transvaginal US 2. agree with blood transfusion -give ferrous sulfate 325mg po tid 3. discussed tx which include dpo, iud, uterine artery embolization vs hysterectomy 4. patient declined depo strongly recommned eval for possible hysterectomy. patient states that she will acquire medicaid for assistance. 5. 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 recommneded tsh, urine test and transvag US to assess size of fibroids, endometrial lining thickness 7. May be reached for any questions at any time.
[2016-10-19 06:23] LABS: Hematocrit 29.7 % (30.3-42.9); Hemoglobin 8.9 gm/dl (10.1-14.3)
[2016-10-19] MEDS ORDERED: LEXISCAN IV ONE (08:28)
--- NOTE | 2016-10-19 09:16 | Discharge Summary ---
Providers - Providers Date of Admission: 10/17/16 17:53 Date of discharge: 10/19/16 Attending physician: LOGAN CORONEL MD 10/18/16 Consult to Cardiac Rehabilitation [CONS] Routine Reason For Exam: Phase I 10/18/16 18:09 Consult to Physician [CONS] Routine Consulting Provider: JEANNETTE ASTUDILLO Reason For Exam: Menorrhagia Place consult to:: Dr. Astudillo Notified:: ANSWERING SERVICES Phone number called:: [phone] Was contact made?: Yes If yes, spoke with:: JORDON Time called:: 18:24 Comment:: HEDY NOTIFIED Primary care physician: INDUCTION COORDINATION POWER ENGINEER Hospitalization Reason for admission: symptomatic anemia Condition: Stable Pertinent studies: Stress test negative for ischemia. Hospital course: 35-year-old female admitted for symptomatic anemia, chest pain. The anemia is due to menorrhagia due to uterine fibroid and diagnoses was consulted and scheduled her to see as an outpatient for possible hysterectomy. For the chest pain stress test done and negative for ischemia. Chest pain is likely from anemia. Patient was transfused packed RBCs and hemoglobin was stable at the time of discharge. No chest pain at the time of discharge. Patient is advised to continue her iron sulfate. Disposition: DISCHARGED TO HOME OR SELFCARE Time spent for discharge: 31 minutes - Discharge Diagnoses (1) Atypical chest pain Status: Acute (2) Iron deficiency anemia Status: Acute Qualifiers: Iron deficiency anemia type: I (3) Menorrhagia Status: Acute Qualifiers: Menorrahagia type: M (4) Symptomatic anemia Status: Acute Core Measure Documentation - Palliative Care Palliative Care/ Comfort Measures: Not Applicable - Core Measures Any of the following diagnoses?: none Exam - Physical Exam Narrative exam: Not in cardiopulmonary distress. The patient appeared well nourished and normally developed. Vital signs as documented. Head exam is unremarkable. No scleral icterus . Neck is without jugular venous distension, thyromegaly, or carotid bruits. Lungs are clear to auscultation. Cardiac exam reveals regular rate and Rhythm. First and second heart sounds normal. No murmurs, rubs or gallops. Abdominal exam reveals normal bowel sounds, no masses, no organomegaly and no aortic enlargement. Extremities are nonedematous and both femoral and pedal pulses are normal. BRAKE SPECIALIST: Alert and oriented 3. No focal weakness. - Constitutional Vitals: Temp Pulse Resp BP Pulse Ox 98.2 F 59 L 15 112/71 100 10/18/16 23:35 10/19/16 07:05 10/19/16 07:05 10/19/16 07:05 10/19/16 07:05 Plan Activity: no restrictions Weight Bearing Status: Full Weight Bearing Diet: regular Follow up with: PRIMARY CARE, [Primary Care Provider] - 7 Days NICOLETTE RAMIREZ MD [Staff Physician] - 7 Days Forms: Work/School Release Form
[2016-10-19] MEDS: FEOSOL PO SCH (12:04)
[2016-10-19] MEDS: TYLENOL PO PRN (12:04)
--- NOTE | 2016-10-19 12:21 | Event Note ---
Date: 10/19/16 Stress test this AM negative for ischemia, EF 68%. Results relayed to primary RN. Mika RAINEY NP / DR. BROWN
--- NOTE | 2016-10-19 13:07 | Treadmill Report ---
PROCEDURE: Single isotope dual study myocardial perfusion scan. REFERRING PHYSICIAN: Barb Malik MD DESCRIPTION OF PROCEDURE: The patient received 10 mCi of technetium 99m Myoview intravenously under resting condition. Resting myocardial perfusion scan was done. Subsequently, the patient underwent Lexiscan stress test as per the protocol. During Lexiscan stress, the patient received 28 mCi of technetium 99m Myoview intravenously. After 30-60 minutes, post stress images were done. Computerized reconstructed images were performed for analysis. The post-stress images did not reveal any perfusion abnormality. Gated study did not reveal any wall motion abnormality. The left ventricular ejection fraction was normal and was calculated to be 68%. The resting images were also normal. CONCLUSION: 1. Normal resting and stress images after the patient underwent Lexiscan stress test. 2. No wall motion abnormality. 3. Normal left ventricular ejection fraction of 68%. JOB# [id number] [facility]
[2016-10-19 19:08] VITALS: BP 119/73
--- NOTE | 2016-10-20 08:41 | Ultrasound Report ---
Transabdominal pelvic ultrasound. A transvaginal study was not ordered. History: Menorrhagia. Findings: The uterus is enlarged measuring 15.8 x 8.7 x 11.8 cm. There are multiple heterogeneous masses, the largest of which is in the right lateral fundus measuring 4.3 x 3.0 x 4.0 cm. A 3.1 x 2.2 x 2.4 cm heterogeneous mass is seen in the posterior body of the uterus. Endometrial echo is unremarkable a 2 mm in thickness. The right ovary is normal. There is a 2.9 cm in diameter complex cyst in the left ovary. Minimal free fluid is seen within the left adnexa. Impression: 1. Multiple uterine fibroids with enlarged uterus. 2. 2.9 cm complex cyst in the left ovary with minimal free fluid in the left adnexa.
== END 2016-10-19 18:00 | disposition home or self-care (01) | DRG 812 ==
LOC: ED 14:18 → 3A 17:53
PROVIDERS: ADMIT Internal Medicine; ATTEND Internal Medicine
PROC: 30233N1 Transfusion of Nonautologous Red Blood Cells into Peripheral Vein, Percutaneous Approach (ICD-10-PCS; principal; 2016-10-17)
DX: D64.9 Anemia, unspecified (principal); N92.0 Excessive and frequent menstruation with regular cycle; R07.89 Other chest pain; E87.6 Hypokalemia; D50.0 Iron deficiency anemia secondary to blood loss (chronic); D25.9 Leiomyoma of uterus, unspecified; Z86.79 Personal history of other diseases of the circulatory system; Z98.890 Other specified postprocedural states; Z82.3 Family history of stroke; Z82.49 Family history of ischemic heart disease and other diseases of the circulatory system
CPT/HCPCS: 36415; 76856; 78452; 80048; 80053; 81025; 82550; 82553; 82962; 83550; 84443; 84484; 85007; 85014; 85018; 85025; 86850; 86900; 86901; 86920; 93005; 93010; 93017; A9502; J2785; J7040; P9016

== ENCOUNTER 2016-11-18 10:15 | Emergency (ER) | payer SELFPAY ==
[2016-11-18 10:55] VITALS: BP 117/76
[2016-11-18] MEDS ORDERED: MOTRIN PO ONE (12:55)
--- NOTE | 2016-11-18 13:02 | Emergency Department Report ---
Entered by ROXANNE SCRUGGS, acting as scribe for MARIELENA HALE PA. ED Headache HPI - General Chief Complaint: Headache Stated Complaint: HEADACHE Source: patient Exam Limitations: no limitations - History of Present Illness Initial Comments: 35 year old female with a PMHx of migranes presents to the ED c/o an acute right frontal and temporal headache that began last night. Rates headache an 8/ 10 in severity and describes pain as sharp in quality. Associated symptom include intermittent dizziness, but she denies any recent head trauma, nausea, vision changes, neck pain, LOC, congestion, vomiting, fever, and chills. Denies taking any OTC medication for headache. LMP 11/02/2016. NKDA. Timing/Duration: other (last night) Quality: moderate, sharp Head Injury Location: frontal (right), temporal (right) Recent Head Trauma: no recent headache/trauma Associated Symptoms: denies symptoms. denies: fatigue, fever/chills, loss of consciousness, nausea/vomiting, nasal congestion, nasal drainage, numbness in legs/feet, stiff neck, vision changes, weakness Allergies/Adverse Reactions: Allergies No Known Allergies Allergy (Verified 11/08/15 08:56) Home Medications: Ambulatory Orders Ferrous Sulfate [Iron Supplement 325 Mg tab] 325 mg PO DAILY 08/26/14 Butalb/Acetamin/Caff 50-325-40 [Fioricet] 1 tab PO Q8HR PRN #20 tablet 11/18/16 Ibuprofen [Motrin 800 MG tab] 800 mg PO ONCE #24 tablet 11/18/16 ED Review of Systems Comment: All other systems reviewed and negative Constitutional: denies: chills, fever, weakness, other (tingling, but reports dizziness) ENT: denies: ear pain, congestion Respiratory: denies: cough, orthopnea, shortness of breath, SOB with exertion, SOB at rest, stridor Cardiovascular: denies: chest pain, dyspnea on exertion, orthopnea Gastrointestinal: denies: abdominal pain, nausea, vomiting Musculoskeletal: other (stiff neck). denies: back pain Skin: denies: rash Neurological: headache (right frontal and temporal). denies: numbness, abnormal gait ED Past Medical Hx - Past Medical History Hx Hypertension: No Hx Congestive Heart Failure: No Hx Diabetes: No Hx Renal Disease: No Hx Headaches / Migraines: Yes Hx Asthma: No Hx COPD: No Additional medical history: Anemia - Surgical History Additional Surgical History: csection x 2, Fibroid tumor removal - Social History Smoking Status: Never Smoker Substance Use Type: None - Medications Home Medications: Home Medications Medication Instructions Recorded Confirmed Last Taken Type Ferrous Sulfate [Iron Supplement 325 mg PO DAILY 08/26/14 10/17/16 06/15/15 History 325 Mg tab] Butalb/Acetamin/Caff 50-325-40 1 tab PO Q8HR PRN #20 tablet 11/18/16 Unknown Rx [Fioricet] Ibuprofen [Motrin 800 MG tab] 800 mg PO ONCE #24 tablet 11/18/16 Unknown Rx ED Physical Exam - General Limitations: No Limitations General appearance: alert, in no apparent distress - Head Head exam: Present: atraumatic, normocephalic, other (frontal tenderness) - Eye Eye exam: Present: normal appearance, PERRL, EOMI. Absent: scleral icterus, conjunctival injection Pupils: Present: normal accommodation - ENT ENT exam: Present: normal exam, mucous membranes moist, TM's normal bilaterally , normal external ear exam - Neck Neck exam: Present: normal inspection, full ROM. Absent: tenderness, meningismus, lymphadenopathy - Respiratory Respiratory exam: Present: normal lung sounds bilaterally. Absent: respiratory distress, wheezes, rales, rhonchi, stridor - Cardiovascular Cardiovascular Exam: Present: regular rate, normal rhythm. Absent: systolic murmur, diastolic murmur, rubs, gallop - GI/Abdominal GI/Abdominal exam: Present: soft. Absent: distended - Extremities Exam Extremities exam: Present: normal inspection, full ROM - Back Exam Back exam: Present: normal inspection, full ROM - Neurological Exam Neurological exam: Present: alert, oriented X3, CN II-XII intact, normal gait - Expanded Neurological Exam Expanded Patient oriented to: Present: person, place, time Speech: Present: fluid speech Cranial nerves: EOM's Intact: Normal Motor strength exam: RUE: 5, LUE: 5, RLE: 5, LLE: 5 DTR: bicep (R): 2+, bicep (L): 2+, tricep (R): 2+, tricep (L): 2+, knee (R): 2+ , knee (L): 2+, ankle (R): 2+, ankle (L): 2+ Best Eye Response ([place]): (4) open spontaneously Best Motor Response ([place]): (6) obeys commands Best Verbal Response (P[place]): (5) oriented Pasha Total: 15 - Psychiatric Psychiatric exam: Present: normal affect, normal mood - Skin Skin exam: Present: warm, dry, intact. Absent: rash ED Course Vital Signs 11/18/16 10:51 Temperature 98.5 F Pulse Rate 65 Respiratory 16 Rate Blood Pressure 117/76 O2 Sat by Pulse 100 Oximetry ED Medical Decision Making - Medical Decision Making There is 35-year-old female presents with classic migraine ED course: Discussed with patient avoid migraine stressors. Motrin 800 given in ED. Discuss home medication of Fioricet and Motrin as needed for migraine. Discussed the patient follow up with primary care physician and neurology referral to reassessment of migraine. Patient shows no sign of neurological deficit. Vital signs are normal patient is in no acute or respiratory distress. Patient verbalization says and will comply to follow-up ED Disposition Clinical Impression: Migraine Qualifiers: Migraine type: without aura Status migrainosus presence: without status migrainosus Intractability: not intractable Qualified Code(s): G43.009 - Migraine without aura, not intractable, without status migrainosus Classic migraine Qualifiers: Status migrainosus presence: without status migrainosus Intractability: not intractable Qualified Code(s): G43.109 - Migraine with aura, not intractable, without status migrainosus Disposition: DISCHARGED TO HOME OR SELFCARE Is pt being admited?: No Does the pt Need Aspirin: No Condition: Stable Instructions: Butalbital/Acetaminophen/Caffeine (By mouth), Migraine Headache ( ED), Ibuprofen (By mouth) Prescriptions: Butalb/Acetamin/Caff 50-325-40 [Fioricet] 1 tab PO Q8HR PRN #20 tablet PRN Reason: Headache Ibuprofen [Motrin 800 MG tab] 800 mg PO ONCE #24 tablet Referrals: GILLIAN FRANKS MD [Primary Care Provider] - 3-5 Days ANUSHA MURILLO MD [Staff Physician] - 3-5 Days KENTON ORTIZ MD [Referring] - 3-5 Days GREGORIO Davenport [facility] [Outside] - 3-5 Days Forms: Work/School Release Form(ED) Time of Disposition: 12:59 This documentation as recorded by the SHEBA beltre JASMINE,accurately reflects the service I personally performed and the decisions made by ,MARIELENA HALE PA.
== END 2016-11-18 13:11 | disposition home or self-care (01) ==
LOC: ED 10:15
DX: G43.109 Migraine with aura, not intractable, without status migrainosus (principal)
CPT/HCPCS: 99282

== ENCOUNTER 2017-05-06 13:58 | Emergency (ER) | payer SELFPAY ==
--- NOTE | 2017-05-06 17:46 | Emergency Department Report ---
Abscess Boil HPI - HPI Chief Complaint: Skin/Abscess/Foreign Body Stated Complaint: RIGHT ARMPIT PAIN Time Seen by Provider: 05/06/17 17:38 Duration: 2 Days Location: Upper Extremity (right axilla) Severity: Severe (8 out of 10) History: Yes Pain (pain to right axilla from 5 bumps), No Fever, No Purulent Drainage, No Numbness, No Foreign Body, No Previous History, No Insect Bite HPI: pT here report that she developed 5 bumps under her right axilla that started 2 days ago. She said it's painful with movement it at a 10 feels sore. Denies any drainage. Denies taking any [id number] medication. She says she's never had this in the past. She denies any fever or chills. Denies any known insect bite. Tetanus vaccine is not up-to-date. No respiratory symptoms. Home Medications: Home Medications Medication Instructions Recorded Confirmed Last Taken Ferrous Sulfate [Iron Supplement 325 mg PO DAILY 08/26/14 10/17/16 06/15/15 325 Mg tab] Previous Rx's Medication Instructions Recorded Last Taken Type Butalb/Acetamin/Caff 50-325-40 1 tab PO Q8HR PRN #20 tablet 11/18/16 Unknown Rx [Fioricet] Ibuprofen [Motrin 800 MG tab] 800 mg PO ONCE #24 tablet 11/18/16 Unknown Rx Acetaminophen/Codeine [Tylenol 1 tab PO Q8H PRN #12 tab 05/06/17 Unknown Rx /Codeine # 3 tab] Clindamycin [Clindamycin CAP] 300 mg PO Q8H #15 cap 05/06/17 Unknown Rx Ibuprofen [Motrin] 600 mg PO Q8H PRN #21 tablet 05/06/17 Unknown Rx Allergies/Adverse Reactions: Allergies Allergy/AdvReac Type Severity Reaction Status Date / Time No Known Allergies Allergy Verified 11/08/15 08:56 ED Review of Systems ROS: Stated complaint: RIGHT ARMPIT PAIN Other details as noted in HPI Comment: All other systems reviewed and negative Constitutional: no symptoms reported Respiratory: no symptoms reported Cardiovascular: denies: chest pain, palpitations, dyspnea on exertion, orthopnea , edema, syncope Gastrointestinal: denies: abdominal pain, nausea, vomiting, diarrhea, constipation, hematemesis, melena Musculoskeletal: denies: back pain, joint swelling, arthralgia, myalgia Skin: rash (painful bumps to right axilla) Neurological: denies: headache, weakness, numbness, paresthesias ED Past Medical Hx - Past Medical History Previous Medical History?: Yes Hx Hypertension: No Hx Congestive Heart Failure: No Hx Diabetes: No Hx Renal Disease: No Hx Headaches / Migraines: Yes Hx Asthma: No Hx COPD: No Additional medical history: Anemia - Surgical History Past Surgical History?: Yes Additional Surgical History: csection x 2, Fibroid tumor removal - Family History Family history: hypertension - Social History Smoking Status: Never Smoker Substance Use Type: None - Medications Home Medications: Home Medications Medication Instructions Recorded Confirmed Last Taken Type Ferrous Sulfate [Iron Supplement 325 mg PO DAILY 08/26/14 10/17/16 06/15/15 History 325 Mg tab] Butalb/Acetamin/Caff 50-325-40 1 tab PO Q8HR PRN #20 tablet 11/18/16 Unknown Rx [Fioricet] Ibuprofen [Motrin 800 MG tab] 800 mg PO ONCE #24 tablet 11/18/16 Unknown Rx Acetaminophen/Codeine [Tylenol 1 tab PO Q8H PRN #12 tab 05/06/17 Unknown Rx /Codeine # 3 tab] Clindamycin [Clindamycin CAP] 300 mg PO Q8H #15 cap 05/06/17 Unknown Rx Ibuprofen [Motrin] 600 mg PO Q8H PRN #21 tablet 05/06/17 Unknown Rx ED Abscess Boil Physical Exam - Exam General: Vital signs noted. No distress. Alert and acting appropriately. This is a 36-year-old female well-nourished well-developed in no acute distress. Size: 1 cm (multiple areas of erythema, indurated, coalesced to right axilla. Tender to palpate without any fluctuant. No drainage noted.) Exam: Yes Tenderness (right axilla), Yes Surrounding Cellulites/Erythema (RT axilla), Yes Normal Neurologic Exam, Yes Normal Circulation, No Fluctuance, No Lymphangitis, No Crepitation, No Heart Murmur Exam: Lungs: Clear to Auscultate bilaterally, no rhonchi wheezes or rales. CV : S1, S2. Regular rate rhythm negative murmur. EXT: No clubbing, cyanosis or edema +2 pulses in all extremities. Neck: Supple, no adenopathy. No C-spine tenderness and full range of motion. Mouth: Moist, no pharyngeal exudate or erythema, oral airways patent and uvula is midline. Tongue is normal I & D Note - I & D Note I & D Note: No incision and drainage done due to positive induration and no fluctuance. Patient given clindamycin 6 edge of milligrams IM in the emergency room and was instructed to place warm compresses to affected area 3-4 times a day and will be placed on oral antibiotic and told to return to emergency room for possible incision and drainage 4 days after starting antibiotic. ED Course Vital Signs 05/06/17 14:03 Temperature 98.6 F Pulse Rate 90 Respiratory 18 Rate Blood Pressure 117/82 O2 Sat by Pulse 100 Oximetry - Reevaluation(s) Reevaluation #1: 05/06/17 18:57 Patient given clindamycin 6 edge of milligrams IM and emergency room Emperically without any adverse reaction. Critical care attestation.: If time is entered above; I have spent that time in minutes in the direct care of this critically ill patient, excluding procedure time. ED Medical Decision Making - Medical Decision Making ED Course: Patient here reports that she has bumps under her right axillary 2 days that is getting worse. She was found to have carbuncles that are indurated without any fluctuant. Areasare not ready to be drained due to non- fluctuance. Patient was given clindamycin 600 mg IM in emergency room and placed on clindamycin by mouth. She was instructed to return to emergency room in 4 days for reevaluation and possible incision and drainage. I also instructed her that she needs to follow up with billing coordinator which she does have access to. I told her I will refer her to a billing coordinator and if he does not take her insurance then she needs to call her insurance and ask for a billing coordinator that is in her zip code. Patient was nondistended discharge instruction and treatment plan and discharged home with prescriptions for clindamycin, Motrin and Tylenol 3 and to return to the emergency room in 4 days. ED Disposition Clinical Impression: Carbuncle of right axilla, Pain in right axilla Disposition: - TO HOME OR SELFCARE Is pt being admited?: No Does the pt Need Aspirin: No Condition: Stable Instructions: Abscess (ED), Cellulitis (ED) Additional Instructions: return to emergency room in 4 days for reevaluation Take antibiotic as prescribed Apply warm compresses to affected tide site 3-4 times a day. keep affected area clean and dry Prescriptions: Acetaminophen/Codeine [Tylenol /Codeine # 3 tab] 1 tab PO Q8H PRN #12 tab PRN Reason: Pain Clindamycin [Clindamycin CAP] 300 mg PO Q8H #15 cap Ibuprofen [Motrin] 600 mg PO Q8H PRN #21 tablet PRN Reason: Pain Referrals: MEENAKSHI FOLEY MD [Staff Physician] - 05/09/17 Forms: Work/School Release Form(ED)
[2017-05-06] MEDS ORDERED: ROCEPHIN IM STA (17:55)
[2017-05-06] MEDS ORDERED: XYLOCAINE 1% MPF 5 mL INFILTRATI ONE (17:55)
[2017-05-06] MEDS ORDERED: CLEOCIN IM ONE (17:55)
[2017-05-07 05:32] VITALS: BP 123/81
== END 2017-05-06 19:12 | disposition home or self-care (01) ==
LOC: ED 13:58
DX: L02.431 Carbuncle of right axilla (principal); G43.909 Migraine, unspecified, not intractable, without status migrainosus
CPT/HCPCS: 96372; 99282

== ENCOUNTER 2017-05-10 13:23 | Emergency (ER) | payer SELFPAY ==
[2017-05-10 13:32] VITALS: BP 119/72
--- NOTE | 2017-05-10 14:03 | Emergency Department Report ---
- General Chief complaint: Laceration/Recheck/Suture Stated complaint: RECHECK RT ARM PIT Time Seen by Provider: 05/10/17 14:00 Source: patient Mode of arrival: Ambulatory Limitations: No Limitations - History of Present Illness Initial comments: patient is a 36 y/o female who presents for recheck of the boil in the right axilla. Patient states that she was seen here 4 days ago and was prescribed clindamycin. Patient states that she was told to return to the ER for a recheck of the boil. Patient denies any fever or chills. complaint: abscess/boil Onset/Timin -: days(s) Location: RUE (right axilla) Severity: mild Improves with: medication Worsens with: none Context: none Associated symptoms: denies other symptoms Treatments Prior to Arrival: antibiotic - Related Data Home Medications Medication Instructions Recorded Confirmed Last Taken Ferrous Sulfate [Iron Supplement 325 mg PO DAILY 08/26/14 10/17/16 06/15/15 325 Mg tab] Previous Rx's Medication Instructions Recorded Last Taken Type Butalb/Acetamin/Caff 50-325-40 1 tab PO Q8HR PRN #20 tablet 11/18/16 Unknown Rx [Fioricet] Ibuprofen [Motrin 800 MG tab] 800 mg PO ONCE #24 tablet 11/18/16 Unknown Rx Acetaminophen/Codeine [Tylenol 1 tab PO Q8H PRN #12 tab 05/06/17 Unknown Rx /Codeine # 3 tab] Clindamycin [Clindamycin CAP] 300 mg PO Q8H #15 cap 05/06/17 Unknown Rx Ibuprofen [Motrin] 600 mg PO Q8H PRN #21 tablet 05/06/17 Unknown Rx Allergies Allergy/AdvReac Type Severity Reaction Status Date / Time No Known Allergies Allergy Verified 11/08/15 08:56 Abscess Boil HPI - HPI Chief Complaint: Laceration/Recheck/Suture Stated Complaint: RECHECK RT ARM PIT Time Seen by Provider: 05/10/17 14:00 Home Medications: Home Medications Medication Instructions Recorded Confirmed Last Taken Ferrous Sulfate [Iron Supplement 325 mg PO DAILY 08/26/14 10/17/16 06/15/15 325 Mg tab] Previous Rx's Medication Instructions Recorded Last Taken Type Butalb/Acetamin/Caff 50-325-40 1 tab PO Q8HR PRN #20 tablet 11/18/16 Unknown Rx [Fioricet] Ibuprofen [Motrin 800 MG tab] 800 mg PO ONCE #24 tablet 11/18/16 Unknown Rx Acetaminophen/Codeine [Tylenol 1 tab PO Q8H PRN #12 tab 05/06/17 Unknown Rx /Codeine # 3 tab] Clindamycin [Clindamycin CAP] 300 mg PO Q8H #15 cap 05/06/17 Unknown Rx Ibuprofen [Motrin] 600 mg PO Q8H PRN #21 tablet 05/06/17 Unknown Rx Allergies/Adverse Reactions: Allergies Allergy/AdvReac Type Severity Reaction Status Date / Time No Known Allergies Allergy Verified 11/08/15 08:56 ED Review of Systems ROS: Stated complaint: RECHECK RT ARM PIT Other details as noted in HPI Comment: All other systems reviewed and negative Constitutional: no symptoms reported. denies: chills, diaphoresis, fever, malaise, weakness Gastrointestinal: denies: abdominal pain, nausea, vomiting, diarrhea Skin: other (boils in the right underarm. ). denies: rash, lesions Neurological: denies: headache, weakness ED Past Medical Hx - Past Medical History Previous Medical History?: Yes Hx Hypertension: No Hx Congestive Heart Failure: No Hx Diabetes: No Hx Renal Disease: No Hx Headaches / Migraines: Yes Hx Asthma: No Hx COPD: No Additional medical history: Anemia - Surgical History Past Surgical History?: Yes Additional Surgical History: csection x 2, Fibroid tumor removal - Social History Smoking Status: Never Smoker Substance Use Type: None - Medications Home Medications: Home Medications Medication Instructions Recorded Confirmed Last Taken Type Ferrous Sulfate [Iron Supplement 325 mg PO DAILY 08/26/14 10/17/16 06/15/15 History 325 Mg tab] Butalb/Acetamin/Caff 50-325-40 1 tab PO Q8HR PRN #20 tablet 11/18/16 Unknown Rx [Fioricet] Ibuprofen [Motrin 800 MG tab] 800 mg PO ONCE #24 tablet 11/18/16 Unknown Rx Acetaminophen/Codeine [Tylenol 1 tab PO Q8H PRN #12 tab 05/06/17 Unknown Rx /Codeine # 3 tab] Clindamycin [Clindamycin CAP] 300 mg PO Q8H #15 cap 05/06/17 Unknown Rx Ibuprofen [Motrin] 600 mg PO Q8H PRN #21 tablet 05/06/17 Unknown Rx ED Physical Exam - General Limitations: No Limitations General appearance: alert, in no apparent distress - Head Head exam: Present: atraumatic, normocephalic - Neurological Exam Neurological exam: Present: alert, oriented X3 - Skin Skin exam: Present: other (furuncles in the right axilla, no erythema, no edema , no streaking, no fluctatioin, no induration, no drainage. ) ED Course Vital Signs 05/10/17 13:29 Temperature 98.2 F Pulse Rate 75 Respiratory 16 Rate Blood Pressure 119/72 O2 Sat by Pulse 99 Oximetry ED Medical Decision Making - Medical Decision Making patient stated that the boils were improving, the furuncles were about 1 cm, no erythema, no edema, no induration, no fluctuation, no drainage. patient was told to keep taking her clindamycin that was prescribed. - Differential Diagnosis furuncles, abscess, cellulitis Critical care attestation.: If time is entered above; I have spent that time in minutes in the direct care of this critically ill patient, excluding procedure time. ED Disposition Clinical Impression: Boil, axilla Disposition: DC-01 TO HOME OR SELFCARE Is pt being admited?: No Does the pt Need Aspirin: No Condition: Good Instructions: Furunculosis and Carbunculosis (ED) Additional Instructions: continue taking clindamycin as prescribed. Referrals: PRIMARY CARE, [Primary Care Provider] - 3-5 Days Time of Disposition: 14:02
== END 2017-05-10 14:15 | disposition home or self-care (01) ==
LOC: ED 13:23
DX: L02.421 Furuncle of right axilla (principal); F17.210 Nicotine dependence, cigarettes, uncomplicated
CPT/HCPCS: 99282

== ENCOUNTER 2017-11-03 08:49 | Emergency (ER) | payer SELFPAY ==
[2017-11-03 08:56] VITALS: BP 113/78
--- NOTE | 2017-11-03 10:28 | Emergency Department Report ---
ED Back Pain/Injury HPI - General Chief Complaint: Back Pain/Injury Stated Complaint: BACK PAIN Time Seen by Provider: 11/03/17 09:54 Source: patient Limitations: No Limitations - History of Present Illness Initial Comments: This is a 36 y.o. A.A. female that presents with upper right side back pain for 1 day. Patient reports waking up yesterday morning and could barely turn her head. States she tried to get out of bed but as she tried to sit on the side of bed the pain was sharp and she could barely turn her neck. States pain is sharp and constant. It is 10/10 on pain scale and non-radiating. The pain usually stop for 15 minutes but returns with movement. She is applying warm cloths to right shoulder and taking ibuprofen for symptom relief. Denies recent injury, redness, swelling, numbness/tingling, and chest pain. MD Complaint: back pain -: days(s) (1) Similar Symptoms Previously: No Place: home Radiation: none Severity: severe Severity scale (0 -10): 8 Quality: sharp, aching Consistency: constant Improves With: none Worsens With: movement Associated Symptoms: denies other symptoms Treatments Prior to Arrival: heat therapy, NSAIDS - Related Data Home Medications Medication Instructions Recorded Confirmed Last Taken Ferrous Sulfate [Iron Supplement 325 mg PO DAILY 08/26/14 10/17/16 06/15/15 325 Mg tab] Previous Rx's Medication Instructions Recorded Last Taken Type Butalb/Acetamin/Caff 50-325-40 1 tab PO Q8HR PRN #20 tablet 11/18/16 Unknown Rx [Fioricet] Ibuprofen [Motrin 800 MG tab] 800 mg PO ONCE #24 tablet 11/18/16 Unknown Rx Acetaminophen/Codeine [Tylenol 1 tab PO Q8H PRN #12 tab 05/06/17 Unknown Rx /Codeine # 3 tab] Clindamycin [Clindamycin CAP] 300 mg PO Q8H #15 cap 05/06/17 Unknown Rx Ibuprofen [Motrin] 600 mg PO Q8H PRN #21 tablet 05/06/17 Unknown Rx Ibuprofen 800 mg PO Q6H PRN #20 tablet 11/03/17 Unknown Rx Tizanidine HCl [tiZANidine] 2 mg PO TID PRN #15 tablet 11/03/17 Unknown Rx Allergies Allergy/AdvReac Type Severity Reaction Status Date / Time No Known Allergies Allergy Verified 11/08/15 08:56 ED Review of Systems ROS: Stated complaint: BACK PAIN Other details as noted in HPI Constitutional: denies: chills, fever Respiratory: denies: cough, shortness of breath, wheezing Cardiovascular: denies: chest pain, palpitations, edema, syncope Gastrointestinal: denies: abdominal pain, nausea, vomiting, diarrhea Musculoskeletal: back pain (right upper back and shoulder pain). denies: joint swelling, arthralgia Skin: denies: rash, lesions Neurological: denies: headache, weakness, numbness, paresthesias Psychiatric: denies: anxiety, depression ED Past Medical Hx - Past Medical History Anemia Family history: hypertension ED Back Pain Physical Exam - Exam General: Vital signs noted. No distress. Alert and acting appropriately. Back/Abdomen: Yes Perithoracic Tenderness (tenderness on deep palpation of trapezius muscles on right, tight, FROM bilateral shoulders, pain in right shoulder with ROM), No Abdominal Tenderness, No Perilumbar Tenderness, No Sacroiliac Tenderness, No Flank Tenderness, No Straight Leg Raise Pain Neuro: Yes Normal Sensation, Yes Normal DTR's, Yes Normal Gait, No Motor Weakness ED Course Vital Signs 11/03/17 08:52 Temperature 98.6 F Pulse Rate 77 Respiratory 16 Rate Blood Pressure 113/78 O2 Sat by Pulse 100 Oximetry ED Medical Decision Making - Medical Decision Making This is a 36 y.o. A.A. female that presents with right shoulder pain for 1 day. Patient is stable and examined by me. No acute signs of distress noted. Vitals are stable. No radiograph or labs obtained. Physical findings susceptible of muscle spasm and strain of right trapezius muscle. Discussed plan to start zanaflex and ibuprofen with patient. Patient agrees to ED plan of care. Discharged home in stable condition. Follow up with PCP in 2-3 days. Critical care attestation.: If time is entered above; I have spent that time in minutes in the direct care of this critically ill patient, excluding procedure time. ED Disposition Clinical Impression: Muscle spasm of right shoulder Strain of right trapezius muscle Qualifiers: Encounter type: initial encounter Qualified Code(s): S46.811A - Strain of other muscles, fascia and tendons at shoulder and upper arm level, right arm, initial encounter Disposition: TO HOME OR SELFCARE Is pt being admited?: No Does the pt Need Aspirin: No Condition: Stable Instructions: Muscle Strain (ED), Muscle Spasm (ED), Neck Exercises (GEN) Additional Instructions: Rest Use ice or heat on affected area for 20 minutes and off for 2 hours. Take pain medication as needed for pain. Don't drive or operate heavy machinery while taking muscle relaxers because they may cause drowsiness. Follow up with Primary Care Provider in 2-3 days. Prescriptions: Ibuprofen 800 mg PO Q6H PRN #20 tablet PRN Reason: Pain Tizanidine HCl [tiZANidine] 2 mg PO TID PRN #15 tablet PRN Reason: Muscle Spasm Referrals: [facility] [Outside] - 3-5 Days [facility] [Outside] - 3-5 Days [facility] [Outside] - 3-5 Days Forms: Work/School Release Form(ED) Time of Disposition: 10:38 Print Language: PASHTO
[2017-11-03] MEDS ORDERED: MOTRIN PO ONE (10:35)
== END 2017-11-03 10:51 | disposition home or self-care (01) ==
LOC: ED 08:49
DX: S46.811A Strain of other muscles, fascia and tendons at shoulder and upper arm level, right arm, initial encounter (principal); X58.XXXA Exposure to other specified factors, initial encounter; Y93.89 Activity, other specified; Y92.098 Other place in other non-institutional residence as the place of occurrence of the external cause; Y99.8 Other external cause status
CPT/HCPCS: 99282

== ENCOUNTER 2017-12-24 10:19 | Emergency (ER) | payer MEDICAID ==
[2017-12-24 10:26] VITALS: BP 123/62
[2017-12-24] MEDS ORDERED: ULTRAM PO ONE (11:35)
--- NOTE | 2017-12-24 11:40 | Emergency Department Report ---
ED Lower Extremity HPI - General Chief Complaint: Extremity Injury, Lower Stated Complaint: TOE PAIN Source: patient Mode of arrival: Ambulatory Limitations: No Limitations - History of Present Illness Complaint: foot injury -: Sudden, days(s) (2) Injury: Foot: Left Type of Injury: blunt Place: home Context: direct blow (Ms. Lama is a 29-year-old female who injured her great toe 2 days ago after she bumped into furniture accidentally.) - Related Data Home Medications Medication Instructions Recorded Confirmed Last Taken Ferrous Sulfate [Iron Supplement 325 mg PO DAILY 08/26/14 10/17/16 06/15/15 325 Mg tab] Previous Rx's Medication Instructions Recorded Last Taken Type Butalb/Acetamin/Caff 50-325-40 1 tab PO Q8HR PRN #20 tablet 11/18/16 Unknown Rx [Fioricet] Ibuprofen [Motrin 800 MG tab] 800 mg PO ONCE #24 tablet 11/18/16 Unknown Rx Acetaminophen/Codeine [Tylenol 1 tab PO Q8H PRN #12 tab 05/06/17 Unknown Rx /Codeine # 3 tab] Clindamycin [Clindamycin CAP] 300 mg PO Q8H #15 cap 05/06/17 Unknown Rx Ibuprofen [Motrin] 600 mg PO Q8H PRN #21 tablet 05/06/17 Unknown Rx Ibuprofen 800 mg PO Q6H PRN #20 tablet 11/03/17 Unknown Rx Tizanidine HCl [tiZANidine] 2 mg PO TID PRN #15 tablet 11/03/17 Unknown Rx Allergies Allergy/AdvReac Type Severity Reaction Status Date / Time No Known Allergies Allergy Verified 11/08/15 08:56 ED Review of Systems ROS: Stated complaint: TOE PAIN Other details as noted in HPI Constitutional: denies: fever, malaise Neurological: denies: numbness, paresthesias ED Past Medical Hx - Past Medical History Previous Medical History?: Yes Hx Hypertension: No Hx Congestive Heart Failure: No Hx Diabetes: No Hx Renal Disease: No Hx Headaches / Migraines: Yes Hx Asthma: No Hx COPD: No Additional medical history: Anemia - Surgical History Past Surgical History?: Yes Additional Surgical History: csection x 2, Fibroid tumor removal - Social History Smoking Status: Never Smoker Substance Use Type: Non Opiate Pain - Medications Home Medications: Home Medications Medication Instructions Recorded Confirmed Last Taken Type Ferrous Sulfate [Iron Supplement 325 mg PO DAILY 08/26/14 10/17/16 06/15/15 History 325 Mg tab] Butalb/Acetamin/Caff 50-325-40 1 tab PO Q8HR PRN #20 tablet 11/18/16 Unknown Rx [Fioricet] Ibuprofen [Motrin 800 MG tab] 800 mg PO ONCE #24 tablet 11/18/16 Unknown Rx Acetaminophen/Codeine [Tylenol 1 tab PO Q8H PRN #12 tab 05/06/17 Unknown Rx /Codeine # 3 tab] Clindamycin [Clindamycin CAP] 300 mg PO Q8H #15 cap 05/06/17 Unknown Rx Ibuprofen [Motrin] 600 mg PO Q8H PRN #21 tablet 05/06/17 Unknown Rx Ibuprofen 800 mg PO Q6H PRN #20 tablet 11/03/17 Unknown Rx Tizanidine HCl [tiZANidine] 2 mg PO TID PRN #15 tablet 11/03/17 Unknown Rx ED Physical Exam - General Limitations: No Limitations General appearance: alert, in no apparent distress - Eye Eye exam: Present: normal appearance - Respiratory Respiratory exam: Absent: respiratory distress - Extremities Exam Extremities exam: Present: full ROM - Neurological Exam Neurological exam: Present: alert, altered - Psychiatric Psychiatric exam: Present: normal affect, normal mood (small abrasion at the lateral portion of the great toe nail bed no tenderness or deformity of the great toe otherwise no active bleeding) ED Course Vital Signs 12/24/17 10:23 Temperature 98.3 F Pulse Rate 83 Respiratory 20 Rate Blood Pressure 123/62 O2 Sat by Pulse 98 Oximetry ED Lower Extremity MDM - Medical Decision Making Ms. Lama struck her left great toe on furniture. No evidence of fracture. She has small skin avulsion at left lower lateral nail bed. Nail intact. No need for suture repair. recommended soaks, antibiotic ointment and bandage. Critical care attestation.: If time is entered above; I have spent that time in minutes in the direct care of this critically ill patient, excluding procedure time. ED Disposition Clinical Impression: Skin avulsion, Contusion of left great toe without damage to nail Disposition: DC-01 TO HOME OR SELFCARE Is pt being admited?: No Does the pt Need Aspirin: No Condition: Stable Instructions: Ingrown Nail (ED) Referrals: ROCÍO DOZIER MD [Primary Care Provider] - as needed Forms: Work/School Release Form(ED) Time of Disposition: 11:40
== END 2017-12-24 11:46 | disposition home or self-care (01) ==
LOC: ED 10:19
DX: S90.112A Contusion of left great toe without damage to nail, initial encounter (principal); D64.9 Anemia, unspecified; G43.909 Migraine, unspecified, not intractable, without status migrainosus; W22.03XA Walked into furniture, initial encounter; Y93.89 Activity, other specified; Y99.8 Other external cause status; Y92.89 Other specified places as the place of occurrence of the external cause
CPT/HCPCS: 99283

== ENCOUNTER 2018-02-14 07:30 | Inpatient (IN) | payer SELFPAY ==
[2018-02-14 08:15] LABS: Bacteria,Urine 1+ /HPF (Negative); Bilirubin,Urine NEG (Negative); Blood,Urine LG (Negative); Color,Urine Yellow (Yellow); Mucus,Urine FEW /HPF
[2018-02-14] MEDS ORDERED: TORADOL IV ONE (08:20)
[2018-02-14] MEDS ORDERED: NACL 0.9% 1000 ML 1,000 ML IV ONE (08:20)
[2018-02-14 08:27] LABS: Mean Corpuscular HGB Conc 28 % (30-34); Platelet Count 384 K/mm3 (140-440); Red Blood Count 3.73 M/mm3 (3.65-5.03)
[2018-02-14 08:29] LABS: Mean Corpuscular Hemoglobin 16 pg (28-32); Mean Corpuscular Volume 58 fl (79-97); Red Cell Distribution Width 23.9 % (13.2-15.2)
[2018-02-14 08:32] LABS: Hematocrit 21.5 % (30.3-42.9); Hemoglobin 5.9 gm/dl (10.1-14.3)
[2018-02-14 08:36] LABS: Alanine Aminotransferase 15 units/L (7-56); BUN/Creatinine Ratio 14; Blood Urea Nitrogen 10 mg/dL (7-17); Calcium 8.7 mg/dL (8.4-10.2); Hemolysis Index 25
[2018-02-14] MEDS ORDERED: ZOFRAN IV ONE (08:41)
[2018-02-14] MEDS ORDERED: MORPHINE IV ONE (08:41)
[2018-02-14] MEDS ORDERED: NACL 0.9% 500 ML 500 ML IV ONE (08:43)
--- NOTE | 2018-02-14 10:00 | Emergency Department Report ---
ED Abdominal Pain HPI - General Chief Complaint: Abdominal Pain Stated Complaint: DIFFICULTY BREATHING,ABD PAIN Time Seen by Provider: 02/14/18 08:08 Source: patient Mode of arrival: Ambulatory Limitations: No Limitations - History of Present Illness Initial Comments: This is a 37-year-old female nontoxic, well nourished in appearance, no acute signs of distress presents to the ED with c/o of abdominal pain and weakness x1 week. Patient denies any vomiting nausea. Patient describes abdominal pain as cramping and aching with level of 3/10 diffuse with worst in the pelvic area. Patient denies chest pain, short of breath, fever, chills, headache, stiff neck, numbness or tingling. Patient denies any diarrhea or constipation. Patient stated is currently on her menstrucal cycle. Patient denies any recent travels. Patient denies any allergies or PMH. MD Complaint: abdominal pain, other (weakness) -: week(s) (1) Location: diffuse Radiation: none Migration to: no migration Severity: mild Severity scale (0 -10): 3 Quality: cramping, aching Consistency: constant Improves With: nothing Worsens With: nothing Associated Symptoms: denies: nausea, vomiting, diarrhea, fever, chills, constipation, dysuria, hematemesis, hematochezia, melena, hematuria, anorexia, syncope - Related Data Home Medications Medication Instructions Recorded Confirmed Last Taken Ferrous Sulfate [Iron Supplement 325 mg PO DAILY 08/26/14 02/14/18 02/13/18 325 Mg tab] Allergies Allergy/AdvReac Type Severity Reaction Status Date / Time No Known Allergies Allergy Verified 02/14/18 07:38 ED Review of Systems ROS: Stated complaint: DIFFICULTY BREATHING,ABD PAIN Other details as noted in HPI Constitutional: denies: chills, fever Eyes: denies: eye pain, eye discharge, vision change ENT: denies: ear pain, throat pain Respiratory: denies: cough, shortness of breath, wheezing Cardiovascular: denies: chest pain, palpitations Endocrine: no symptoms reported Gastrointestinal: abdominal pain. denies: nausea, vomiting, diarrhea Genitourinary: denies: urgency, dysuria, discharge Musculoskeletal: denies: back pain, joint swelling, arthralgia Skin: denies: rash, lesions Neurological: weakness. denies: headache, numbness, paresthesias Psychiatric: denies: anxiety, depression Hematological/Lymphatic: denies: easy bleeding, easy bruising ED Past Medical Hx - Past Medical History Hx Hypertension: No Hx Congestive Heart Failure: No Hx Diabetes: No Hx Renal Disease: No Hx Headaches / Migraines: Yes Hx Asthma: No Hx COPD: No Additional medical history: Anemia - Surgical History Additional Surgical History: csection x 2, Fibroid tumor removal - Social History Smoking Status: Never Smoker Substance Use Type: None - Medications Home Medications: Home Medications Medication Instructions Recorded Confirmed Last Taken Type Ferrous Sulfate [Iron Supplement 325 mg PO DAILY 08/26/14 02/14/18 02/13/18 History 325 Mg tab] ED Physical Exam - General Limitations: No Limitations General appearance: alert, in no apparent distress - Head Head exam: Present: atraumatic, normocephalic - Eye Eye exam: Present: normal appearance, PERRL, EOMI Pupils: Present: normal accommodation - ENT ENT exam: Present: normal exam, mucous membranes moist - Neck Neck exam: Present: normal inspection, full ROM. Absent: tenderness, meningismus, lymphadenopathy - Respiratory Respiratory exam: Present: normal lung sounds bilaterally. Absent: respiratory distress, wheezes, rales, rhonchi, stridor, chest wall tenderness, accessory muscle use, decreased breath sounds, prolonged expiratory - Cardiovascular Cardiovascular Exam: Present: regular rate, normal rhythm, normal heart sounds. Absent: irregular rhythm, systolic murmur, diastolic murmur, rubs, gallop - GI/Abdominal GI/Abdominal exam: Present: soft, tenderness, normal bowel sounds. Absent: distended, guarding, rebound, rigid, diminished bowel sounds - Expanded GI/Abdominal Exam Expanded GI/Abdominal exam: Absent: psoas sign, obturator sign, heel tap sign, Godinez's sign, Rovsing's sign, tenderness at [place]bur[place]'s Point, ascites - Rectal Rectal exam: Present: deferred - Extremities Exam Extremities exam: Present: normal inspection, full ROM, normal capillary refill. Absent: tenderness - Back Exam Back exam: Present: normal inspection, full ROM. Absent: tenderness, CVA tenderness (R), CVA tenderness (L), muscle spasm, paraspinal tenderness, vertebral tenderness, rash noted - Neurological Exam Neurological exam: Present: alert, oriented X3, normal gait - Psychiatric Psychiatric exam: Present: normal affect, normal mood - Skin Skin exam: Present: warm, dry, intact, normal color. Absent: rash ED Course Vital Signs 02/14/18 02/14/18 02/14/18 07:38 09:10 10:08 Temperature 98 F 97.7 F Pulse Rate 83 78 Respiratory 18 16 13 Rate Blood Pressure 117/72 Blood Pressure 122/79 [Left] O2 Sat by Pulse 100 100 Oximetry 02/14/18 02/14/18 12:20 12:25 Temperature 98.1 F 98.0 F Pulse Rate 60 58 L Respiratory 16 16 Rate Blood Pressure 118/75 112/73 Blood Pressure [Left] O2 Sat by Pulse 100 100 Oximetry - Reevaluation(s) Reevaluation #1: 02/14/18 10:06 Patient is speaking in full sentences with no signs of distress noted. - Consultations Consultation #1: 02/14/18 12:41 Patient was consulted with Dr. Helena mejia for admission and accepted patient. ED Medical Decision Making - Lab Data Result diagrams: 02/14/18 07:48 02/14/18 07:48 - Medical Decision Making This is a 37-year-old female that presents with anemia, weakness and abdominal pain. Patient stable was examined by me. A CT scan with contrast obtained and dictated by radiologist within normal limits. Patient is notified of the CT report with no questions. Labs indicates patient has a 5.9 with hemoglobin and hematocrit. I ordered 1 L normal saline as well as blood transfusion of red blood cells. Patient is admitted for further evaluation and treatment with Dr. Helena mejia. At time of admission, the patient does not seem toxic or ill in appearance. No acute signs of distress noted. Patient agrees to admission treatment plan of care. No further questions noted by the patient. Critical care attestation.: If time is entered above; I have spent that time in minutes in the direct care of this critically ill patient, excluding procedure time. ED Disposition Clinical Impression: Weakness Anemia Qualifiers: Anemia type: unspecified type Qualified Code(s): D64.9 - Anemia, unspecified Abdominal pain Qualifiers: Abdominal location: generalized Qualified Code(s): R10.84 - Generalized abdominal pain Disposition: OP ADMIT IP TO THIS HOSP Is pt being admited?: Yes Condition: Stable Instructions: Abdominal Pain (ED) Referrals: Janet DOZIER [Other] - 3-5 Days
--- NOTE | 2018-02-14 10:07 | Cat Scan Report ---
CT ABDOMEN PELVIS WITH CONTRAST: HISTORY: abdominal pain. COMPARISON: none. TECHNIQUE: Helical CT in 1.25mm intervals following IV contrast. Sagittal and coronal reconstructions. FINDINGS: Lung bases: Normal. Liver: Normal. Few scattered tiny cysts or hemangiomas are noted. Biliary system: Normal. Pancreas: Normal. Spleen: Normal. Kidneys/ureters/bladder: Normal. Adrenal glands: Normal. Aorta: Normal. Intestines: Within normal limits given no oral contrast was administered. Appendix: Not confidently identified, correlate with surgical history. Pelvic viscera: The uterus is markedly enlarged with numerous fibroids. The uterus measures 17.8 x 14.1 x 8.8 cm. The adnexal regions are unremarkable. Ascites: None. Adenopathy: None. Musculoskeletal: Normal. IMPRESSION: Uterine fibroid disease. No acute process is appreciated.
[2018-02-14 10:49] LABS: Anisocytosis 2+; Total Cells Counted 100
[2018-02-14 10:50] LABS: Hypochromasia 3+; Ovalocytes Few; Poikilocytosis 2+; Schistocytes Rare; Target Cells 1+
[2018-02-14 10:51] LABS: Helmet Cells Rare; Platelet Estimate Cons
[2018-02-14] MEDS ORDERED: NACL 0.9% 500 ML 500 ML ONE (12:00)
[2018-02-14 17:15] LABS: Hematocrit 24.7 % (30.3-42.9); Hemoglobin 6.9 gm/dl (10.1-14.3)
[2018-02-14] MEDS ORDERED: TYLENOL PO PRN (20:23)
[2018-02-14] MEDS ORDERED: MORPHINE IV PRN (20:23)
[2018-02-14] MEDS ORDERED: ZOFRAN IV PRN (20:23)
[2018-02-14] MEDS ORDERED: SODIUM CHLORIDE FLUSH SYRINGE 10 ML IV PRN (20:23)
[2018-02-14] MEDS ORDERED: AMBIEN PO PRN (20:23)
[2018-02-14] MEDS ORDERED: NACL 0.9% 500 ML 500 ML IV NR (20:27)
[2018-02-14] MEDS ORDERED: NACL 0.9% 1000 ML 1,000 ML IV SCH (21:00)
[2018-02-14] MEDS: PEPCID PO SCH (22:45)
[2018-02-14] MEDS: PERCOCET 5/325 PO PRN (22:45)
[2018-02-14] MEDS: SODIUM CHLORIDE FLUSH SYRINGE 10 ML IV SCH (22:46)
--- NOTE | 2018-02-15 07:33 | Event Note ---
Date: 02/14/18 See dictated H/p in reports Anemia sec to Menorrhagia
[2018-02-15] MEDS ORDERED: NACL 0.9% 500 ML 500 ML IV ONE (08:49)
--- NOTE | 2018-02-15 08:51 | Progress Note ---
Assessment and Plan Assessment and plan: Ms. Lama is 37 yo woman with history or iron deficiency anemia who pw abd pains. * CT abd/pelvis with IV contrast reported Uterine fibroids, no acute process * Hgb 5.9, currently with Menstrual bleeding. Menorrhagia with abd. pain: peanut sheller consulted Acute on chronic blood loss anemia suspected due to Uterine Fibroids s/p 2 units , repeat hgb 6.9: give another unit of blood Iron deficiency anemia: transfuse prbc Uterine Fibroids disorder related abd pains Hypotension, hypovolemia: support with prbc DVT prophylaxis: scd only. History Interval history: Patient was seen and examined. Follow-up on current diagnosis of abd pains. Overnight uneventful. Patient denies any chest pain, shortness breath, nausea/ vomiting or severe headaches. Imaging, nursing note, chart, labs and old chart reviewed. Discussed with patient. Hospitalist Physical - Physical exam Narrative exam: GEN: WDWN, NAD, Awake, Alert, Orientated HEENT: NCAT, EOMI, PERRL, OP Clear NECK: supple, no adenopathy, no thyromegaly, no JVD CVS/HEART: RRR, normal S1S2, pulses present bilaterally CHEST/LUNGS: CTA B, Symmetrical chest expansion, good air entry bilaterally GI/Abdomen: soft, NTND, good bowel sounds, no guarding or rebound /Bladder: no suprapubic tenderness, no CVA or paraspinal tenderness EXT/Skin: no c/c/e, no obvious rash MSK: FROM x 4 Neuro: CN 2-12 grossly intact, no new focal deficits Psych: calm - Constitutional Vitals: Temp Pulse Resp BP Pulse Ox 98.0 F 56 L 20 98/63 100 02/15/18 05:19 02/15/18 05:19 02/15/18 05:19 02/15/18 05:19 02/15/18 05:19 Results - Labs CBC & Chem 7: 02/15/18 10:17 02/15/18 10:17 Labs: Laboratory Last Values WBC 3.4 K/mm3 (4.5-11.0) L 02/14/18 07:48 RBC 3.73 M/mm3 (3.65-5.03) 02/14/18 07:48 Hgb 6.9 gm/dl (10.1-14.3) L 02/14/18 16:55 Hct 24.7 % (30.3-42.9) L 02/14/18 16:55 MCV 58 fl (79-97) L 02/14/18 07:48 MCH 16 pg (28-32) L 02/14/18 07:48 MCHC 28 % (30-34) L 02/14/18 07:48 RDW 23.9 % (13.2-15.2) H 02/14/18 07:48 Plt Count 384 K/mm3 (140-440) 02/14/18 07:48 Add Manual Diff Complete 02/14/18 07:48 Total Counted 100 02/14/18 07:48 Seg Neuts % (Manual) 54.0 % (40.0-70.0) 02/14/18 07:48 Band Neutrophils % 0 % 02/14/18 07:48 Lymphocytes % (Manual) 33.0 % (13.4-35.0) 02/14/18 07:48 Reactive Lymphs % (Man) 0 % 02/14/18 07:48 Monocytes % (Manual) 8.0 % (0.0-7.3) H 02/14/18 07:48 Eosinophils % (Manual) 3.0 % (0.0-4.3) 02/14/18 07:48 Basophils % (Manual) 2.0 % (0.0-1.8) H 02/14/18 07:48 Metamyelocytes % 0 % 02/14/18 07:48 Myelocytes % 0 % 02/14/18 07:48 Promyelocytes % 0 % 02/14/18 07:48 Blast Cells % 0 % 02/14/18 07:48 Nucleated RBC % Not Reportable 02/14/18 07:48 Seg Neutrophils # Man 1.8 K/mm3 (1.8-7.7) 02/14/18 07:48 Band Neutrophils # 0.0 K/mm3 02/14/18 07:48 Lymphocytes # (Manual) 1.1 K/mm3 (1.2-5.4) L 02/14/18 07:48 Abs React Lymphs (Man) 0.0 K/mm3 02/14/18 07:48 Monocytes # (Manual) 0.3 K/mm3 (0.0-0.8) 02/14/18 07:48 Eosinophils # (Manual) 0.1 K/mm3 (0.0-0.4) 02/14/18 07:48 Basophils # (Manual) 0.1 K/mm3 (0.0-0.1) 02/14/18 07:48 Metamyelocytes # 0.0 K/mm3 02/14/18 07:48 Myelocytes # 0.0 K/mm3 02/14/18 07:48 Promyelocytes # 0.0 K/mm3 02/14/18 07:48 Blast Cells # 0.0 K/mm3 02/14/18 07:48 WBC Morphology Not Reportable 02/14/18 07:48 Hypersegmented Neuts Not Reportable 02/14/18 07:48 Hyposegmented Neuts Not Reportable 02/14/18 07:48 Hypogranular Neuts Not Reportable 02/14/18 07:48 Smudge Cells Not Reportable 02/14/18 07:48 Toxic Granulation Not Reportable 02/14/18 07:48 Toxic Vacuolation Not Reportable 02/14/18 07:48 Dohle Bodies Not Reportable 02/14/18 07:48 Pelger-Huet Anomaly Not Reportable 02/14/18 07:48 Thais Rods Not Reportable 02/14/18 07:48 Platelet Estimate Cons 02/14/18 07:48 Clumped Platelets Not Reportable 02/14/18 07:48 Plt Clumps, EDTA Not Reportable 02/14/18 07:48 Large Platelets Not Reportable 02/14/18 07:48 Giant Platelets Not Reportable 02/14/18 07:48 Platelet Satelliting Not Reportable 02/14/18 07:48 Plt Morphology Comment Not Reportable 02/14/18 07:48 RBC Morphology Not Reportable 02/14/18 07:48 Dimorphic RBCs Not Reportable 02/14/18 07:48 Polychromasia Not Reportable 02/14/18 07:48 Hypochromasia 3+ 02/14/18 07:48 Poikilocytosis 2+ 02/14/18 07:48 Anisocytosis 2+ 02/14/18 07:48 Microcytosis 2+ 02/14/18 07:48 Macrocytosis Not Reportable 02/14/18 07:48 Spherocytes Not Reportable 02/14/18 07:48 Pappenheimer Bodies Not Reportable 02/14/18 07:48 Sickle Cells Not Reportable 02/14/18 07:48 Target Cells 1+ 02/14/18 07:48 Tear Drop Cells Not Reportable 02/14/18 07:48 Ovalocytes Few 02/14/18 07:48 Helmet Cells Rare 02/14/18 07:48 [place] Bodies Not Reportable 02/14/18 07:48 [place] Rings Not Reportable 02/14/18 07:48 [place] Cells Not Reportable 02/14/18 07:48 Bite Cells Not Reportable 02/14/18 07:48 Crenated Cell Not Reportable 02/14/18 07:48 Elliptocytes Few 02/14/18 07:48 Acanthocytes (Spur) Not Reportable 02/14/18 07:48 Rouleaux Not Reportable 02/14/18 07:48 Hemoglobin C Crystals Not Reportable 02/14/18 07:48 Schistocytes Rare 02/14/18 07:48 Malaria parasites Not Reportable 02/14/18 07:48 [place] Bodies Not Reportable 02/14/18 07:48 Hem Pathologist Commnt No 02/14/18 07:48 Sodium 143 mmol/L (137-145) 02/14/18 07:48 Potassium 4.1 mmol/L (3.6-5.0) 02/14/18 07:48 Chloride 104.5 mmol/L (98-107) 02/14/18 07:48 Carbon Dioxide 24 mmol/L (22-30) 02/14/18 07:48 Anion Gap 19 mmol/L 02/14/18 07:48 BUN 10 mg/dL (7-17) 02/14/18 07:48 Creatinine 0.7 mg/dL (0.7-1.2) 02/14/18 07:48 Estimated GFR > 60 ml/min 02/14/18 07:48 BUN/Creatinine Ratio 14 % 02/14/18 07:48 Glucose 81 mg/dL (65-100) 02/14/18 07:48 Hemoglobin A1c 5.5 % (4-6) 02/14/18 20:58 Calcium 8.7 mg/dL (8.4-10.2) 02/14/18 07:48 Total Bilirubin 0.20 mg/dL (0.1-1.2) 02/14/18 07:48 AST 29 units/L (5-40) 02/14/18 07:48 ALT 15 units/L (7-56) 02/14/18 07:48 Alkaline Phosphatase 54 units/L (35-129) 02/14/18 07:48 Total Protein 7.0 g/dL (6.3-8.2) 02/14/18 07:48 Albumin 4.0 g/dL (3.9-5) 02/14/18 07:48 Albumin/Globulin Ratio 1.3 % 02/14/18 07:48 HCG, Qual Negative (Negative) 02/14/18 07:48 Urine Color Yellow (Yellow) 02/14/18 07:46 Urine Turbidity Hazy (Clear) 02/14/18 07:46 Urine pH 6.0 (5.0-7.0) 02/14/18 07:46 Ur Specific [place] 1.020 (1.003-1.030) 02/14/18 07:46 Urine Protein 30 mg/dl mg/dL (Negative) 02/14/18 07:46 Urine Glucose (UA) Neg mg/dL (Negative) 02/14/18 07:46 Urine Ketones Neg mg/dL (Negative) 02/14/18 07:46 Urine Blood Lg (Negative) 02/14/18 07:46 Urine Nitrite Neg (Negative) 02/14/18 07:46 Urine Bilirubin Neg (Negative) 02/14/18 07:46 Urine Urobilinogen 4.0 mg/dL (<2.0) 02/14/18 07:46 Ur Leukocyte Esterase Sm (Negative) 02/14/18 07:46 Urine WBC (Auto) 3.0 /HPF (0.0-6.0) 02/14/18 07:46 Urine RBC (Auto) 3.0 /HPF (0.0-6.0) 02/14/18 07:46 U Epithel Cells (Auto) 16.0 /HPF (0-13.0) H 02/14/18 07:46 Urine Bacteria (Auto) 1+ /HPF (Negative) 02/14/18 07:46 Urine Mucus Few /HPF 02/14/18 07:46 Blood Type O POSITIVE 02/14/18 08:42 Antibody Screen Negative 02/14/18 08:42 Crossmatch See Detail 02/14/18 08:42
--- NOTE | 2018-02-15 08:56 | History and Physical Report ---
CHIEF COMPLAINT: 1. Abdominal pain for 1 week. 2. Generalized weakness. HISTORY OF PRESENT ILLNESS: A 37-year-old female who comes in for abdominal pain of 1 week and weakness of 1 week. The patient has been having excessive menstrual periods lasting for 7 days. The patient uses about 48 pack in a given cycle. There is a large pack of menstrual patch gone within one menstrual cycle. The patient has been feeling weak. Excessive menstrual loss of blood. The patient was diagnosed with fibroids, but because of insurance concerns she did not get hysterectomy in the past, but now she is willing to get hysterectomy. PAST MEDICAL HISTORY: Significant for headaches and migraine and anemia. PAST SURGICAL HISTORY: x 2 and fibroid tumor removal. SOCIAL HISTORY: Does not smoke. FAMILY HISTORY: No significant family history. REVIEW OF SYSTEMS: Significant for generalized weakness, lightheadedness, near syncopal feeling and in general feeling very weak. 14-point review of systems done. Otherwise, negative. PHYSICAL EXAMINATION: GENERAL: Middle-aged female, cooperative during examination. VITAL SIGNS: Blood pressure is 108/68, temperature is 98.1, pulse is 58, respirations are 18. HEENT: Unremarkable. Pupils equal and reactive. Of note, conjunctivae are pale. Tongue is pale. NECK: Supple, no lymphadenopathy, no thyromegaly. LUNGS: Clear to auscultation and percussion. Good air entry. CARDIOVASCULAR: S1, S2 heard. No gallop, no murmur, no rub. Apical impulse in left fifth intercostal space and midclavicular line. ABDOMEN: Soft and benign. No hepatosplenomegaly. No guarding, no rigidity. Hernial orifices are normal. EXTREMITIES: Good pedal pulses. No pedal edema. LABORATORY DATA: Significant for hemoglobin of 5.9 and hematocrit of 21.5, MCV, MCH, MCHC are low. RDW is 23.9. Electrolytes are normal. Urine shows epithelial cells of 16. ASSESSMENT AND PLAN: 1. Acute blood loss secondary to menorrhagia. The patient to be transfused 1-2 units of blood. 2. Menorrhagia. The patient to get a TERMINAL COMPUTER OPERATOR consult with followup as outpatient for hysterectomy. Iron supplements to be used after discharge, 3. Deep venous thrombosis prophylaxis, SCDs only. No Lovenox. In summary, the patient has anemia secondary to blood loss tertiary to menorrhagia. TERMINAL COMPUTER OPERATOR consult requested for possible hysterectomy as outpatient after discharge. JOB# [id number] VIOLETA/JOHN
[2018-02-15] MEDS: PEPCID PO SCH ×2 (10:47→22:35)
[2018-02-15 10:49] LABS: Mean Corpuscular HGB Conc 29 % (30-34); Platelet Count 365 K/mm3 (140-440); Red Blood Count 4.06 M/mm3 (3.65-5.03)
[2018-02-15] MEDS: SODIUM CHLORIDE FLUSH SYRINGE 10 ML IV SCH ×2 (10:50→22:35)
[2018-02-15 10:51] LABS: Hematocrit 25.4 % (30.3-42.9); Hemoglobin 7.4 gm/dl (10.1-14.3); Mean Corpuscular Hemoglobin 18 pg (28-32); Mean Corpuscular Volume 63 fl (79-97); Red Cell Distribution Width 29.7 % (13.2-15.2)
[2018-02-15 10:58] LABS: Alanine Aminotransferase 39 units/L (7-56); Albumin 3.6 g/dL (3.9-5); BUN/Creatinine Ratio 9; Blood Urea Nitrogen 6 mg/dL (7-17); Calcium 8.5 mg/dL (8.4-10.2); Hemolysis Index 2
[2018-02-15] MEDS ORDERED: NACL 0.9% 500 ML 500 ML ONE (11:58)
--- NOTE | 2018-02-15 15:13 | Consultation ---
History of Present Illness Consult date: 02/15/18 Requesting physician: COREY VARGAS Reason for consult: menorrhagia, other (symptomatic anemia) History of present illness: Patient is a 37-year-old black female LMP 02/07/2018 who presented to [facility] ER with complaints of abdominal pain and weakness for 1 week course by prolonged heavy vaginal bleeding. She has a history of uterine fibroids but has been unable to seek medical care because of lack of insurance. 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 A pelvic CT scan was done showing the uterus to be 17.8 x 14.1 x 8.8 cm for which I have been consulted to address. She is currently receiving a blood transfusion, and is feeling better. 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 Family/Genetic History: none Social history: no significant social history, single - Obstetrical History : 2 Medications and Allergies Allergies Allergy/AdvReac Type Severity Reaction Status Date / Time No Known Allergies Allergy Verified 02/14/18 07:38 Home Medications Medication Instructions Recorded Confirmed Last Taken Type Ferrous Sulfate [Iron Supplement 325 mg PO DAILY 08/26/14 02/14/18 02/13/18 History 325 Mg tab] Active Meds: Active Medications Acetaminophen (Tylenol) 650 mg PO Q4H PRN PRN Reason: Pain MILD(1-3)/Fever >100.5/TRUJILLO Famotidine (Pepcid) 20 mg PO BID [facility] Last Admin: 02/15/18 10:47 Dose: 20 mg Morphine Sulfate (Morphine) 2 mg IV Q4H PRN PRN Reason: Pain, Moderate (4-6) Ondansetron HCl (Zofran) 4 mg IV Q8H PRN PRN Reason: Nausea And Vomiting Oxycodone/Acetaminophen (Percocet 5/325) 1 tab PO Q6H PRN PRN Reason: Pain, Moderate (4-6) Last Admin: 02/14/18 22:45 Dose: 1 tab Sodium Chloride (Sodium Chloride Flush Syringe 10 Ml) 10 ml IV BID [facility] Last Admin: 02/15/18 10:50 Dose: 10 ml Sodium Chloride (Sodium Chloride Flush Syringe 10 Ml) 10 ml IV PRN PRN PRN Reason: LINE FLUSH Zolpidem Tartrate (Ambien) 5 mg PO QHS PRN PRN Reason: Insomnia Review of Systems All systems: negative - Vital Signs Vital signs: Vital Signs Temp Pulse Resp BP Pulse Ox 98 F 83 18 117/72 100 02/14/18 07:38 02/14/18 07:38 02/14/18 07:38 02/14/18 07:38 02/14/18 07:38 Temp Pulse Resp BP Pulse Ox 98.2 F 66 20 107/60 100 02/15/18 15:01 02/15/18 15:01 02/15/18 15:01 02/15/18 15:01 02/15/18 11:46 - Physical Exam Breasts: Positive: deferred Cardiovascular: Regular rate Lungs: Positive: Clear to auscultation Abdomen: Positive: normal appearance, mass Genitourinary (Female): Positive: other (deferred) Uterus: Positive: enlarged Extremities: Positive: normal Results Result Diagrams: 02/15/18 10:17 02/15/18 10:17 Abnormal lab results 02/14/18 02/14/18 02/15/18 Range/Units 08:42 16:55 10:17 WBC (4.5-11.0) K/mm3 Hgb 6.9 L (10.1-14.3) gm/dl Hct 24.7 L (30.3-42.9) % MCV (79-97) fl MCH (28-32) pg MCHC (30-34) % RDW (13.2-15.2) % BUN 6 L (7-17) mg/dL AST 45 H (5-40) units/L Albumin 3.6 L (3.9-5) g/dL Crossmatch See Detail 02/15/18 Range/Units 10:17 WBC 4.1 L (4.5-11.0) K/mm3 Hgb 7.4 L (10.1-14.3) gm/dl Hct 25.4 L (30.3-42.9) % MCV 63 L (79-97) fl MCH 18 L (28-32) pg MCHC 29 L (30-34) % RDW 29.7 H (13.2-15.2) % BUN (7-17) mg/dL AST (5-40) units/L Albumin (3.9-5) g/dL Crossmatch All other labs normal. CT scan - pelvis: report reviewed Assessment and Plan - Patient Problems (1) Uterine fibroid Onset Date: 02/15/18 Current Visit: Yes Status: Chronic Qualifiers: Uterine leiomyoma location: unspecified location Qualified Code(s): D25.9 - Leiomyoma of uterus, unspecified Plan to address problem: A: Uterine fibroids Menorrhagia - most likely due to uterine fibroids Chronic blood loss anemia - most likely due to menorrhagia P: Agree with admission for blood transfusion Will obtain a pelvic ultrasound to delineate uterine fibroids She can follow up in the office for a Pap smear and endometrial biopsy No immediate intervention at this time Thank you for this consultation - I will be glad to follow up with Ms Lama in the office next week (2) Chronic blood loss anemia Onset Date: 02/15/18 Current Visit: Yes Status: Chronic (3) Menorrhagia Onset Date: 02/15/18 Current Visit: No Status: Acute Qualifiers: Menorrahagia type: with regular cycle Qualified Code(s): N92.0 - Excessive and frequent menstruation with regular cycle (4) Symptomatic anemia Onset Date: 02/15/18 Current Visit: No Status: Acute
[2018-02-15] MEDS: PERCOCET 5/325 PO PRN (22:34)
[2018-02-16] MEDS: PERCOCET 5/325 PO PRN (09:12)
[2018-02-16] MEDS: PEPCID PO SCH (09:12)
--- NOTE | 2018-02-16 11:25 | Discharge Summary ---
Providers - Providers Date of Admission: 02/14/18 12:30 Date of discharge: 02/16/18 Attending physician: HARRISON ROGERS 02/14/18 20:23 Consult to Physician [CONS] Routine Comment: Consulting Provider: LIDIA RAMIREZ Physician Instructions: Reason For Exam: Fibroids Primary care physician: ROCÍO DOZIER Hospitalization Condition: Stable Hospital course: Ms. Lama is 37 yo woman with history or iron deficiency anemia who pw abd pains. * CT abd/pelvis with IV contrast reported Uterine fibroids, no acute process * Hgb 5.9, with Menstrual bleeding. She bleeds for 10 days very heavy. Menorrhagia with abd. 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 Disposition: DC-01 TO HOME OR SELFCARE Time spent for discharge: 32 minutes Core Measure Documentation - Palliative Care Palliative Care/ Comfort Measures: Not Applicable - Core Measures Any of the following diagnoses?: none - VTE Discharge Requirements Deep Vein Thrombosis/Pulmonary Embolism Present on Admission: No Has pt received <5 days of overlap therapy or INR<2.0: No Anticoagulant overlap therapy prescribed at discharge: No Contraindication No Overlap Therapy order at DC: Not Indicated Exam - Physical Exam Narrative exam: GEN: WDWN, NAD, Awake, Alert, Orientated HEENT: NCAT, EOMI, PERRL, OP Clear NECK: supple, no adenopathy, no thyromegaly, no JVD CVS/HEART: RRR, normal S1S2, pulses present bilaterally CHEST/LUNGS: CTA B, Symmetrical chest expansion, good air entry bilaterally GI/Abdomen: soft, NTND, good bowel sounds, no guarding or rebound /Bladder: no suprapubic tenderness, no CVA or paraspinal tenderness EXT/Skin: no c/c/e, no obvious rash MSK: FROM x 4 Neuro: CN 2-12 grossly intact, no new focal deficits Psych: calm - Constitutional Vitals: Temp Pulse Resp BP Pulse Ox 98.5 F 57 L 20 130/83 100 02/16/18 05:35 02/16/18 05:35 02/16/18 05:35 02/16/18 05:35 02/16/18 05:35 Plan Activity: other (no strenous activity until cleared by electric stove mechanic) Diet: regular Follow up with: Janet DOZIER [Other] - 3-5 Days LIDIA RAMIREZ MD [Staff Physician] - 7 Days Prescriptions: Acetaminophen [Acetaminophen TAB] 325 mg PO Q4H PRN #12 tablet PRN Reason: Pain MILD(1-3)/Fever >100.5/TRUJILLO Docusate Sodium [Colace Clear] 50 mg PO BID #60 capsule oxyCODONE /ACETAMINOPHEN [Percocet 5/325 mg] 1 tab PO Q6H PRN #12 tablet PRN Reason: Pain , Severe (7-10)
[2018-02-16] MEDS ORDERED: NACL 0.9% 500 ML 500 ML IV ONE (12:00)
[2018-02-16 19:20] VITALS: BP 129/91
--- NOTE | 2018-02-17 08:00 | Ultrasound Report ---
ULTRASOUND PELVIC COMPLETE ULTRASOUND TRANSVAGINAL HISTORY: Uterine fibroids. COMPARISON: No previous ultrasound. Correlation is made with a CT abdomen pelvis with contrast performed 02/14/18. TECHNIQUE: Transabdominal and transvaginal ultrasound with color doppler interrogation. FINDINGS: Uterus: The uterus is markedly enlarged, heterogeneous and contains multiple myometrial masses. The uterus measures 19.3 x 9.6 x 12.6 on ultrasound. Numerous solid, noncalcified uterine fibroids are identified throughout the uterus. The largest fibroid in the anterior wall measures 5.2 x 4.4 cm and has a submucosal component. There are approximately 20 additional fibroids ranging from 1-4 cm in diameter with most having an intramural or subserosal location. Endometrium: 18 mm. Right ovary: 4.9 x 3.0 x 3-4 cm. No focal abnormality. Left ovary: 6.2 x 2.5 x 2.2 cm. A 1.4 cm simple cyst is identified. Small pelvic fluid is identified in the cul-de-sac which is likely physiologic. IMPRESSION: Moderate to severe uterine fibroid disease as described above. 1.4 cm simple left ovarian cyst.
== END 2018-02-16 20:00 | disposition home or self-care (01) | DRG 760 ==
LOC: ED 07:30 → 3A 12:30
PROVIDERS: ADMIT Internal Medicine; ATTEND Internal Medicine
PROC: 30233N1 Transfusion of Nonautologous Red Blood Cells into Peripheral Vein, Percutaneous Approach (ICD-10-PCS; principal; 2018-02-14)
DX: D25.9 Leiomyoma of uterus, unspecified (principal); D62 Acute posthemorrhagic anemia; D64.9 Anemia, unspecified; N92.0 Excessive and frequent menstruation with regular cycle; D50.0 Iron deficiency anemia secondary to blood loss (chronic); I95.9 Hypotension, unspecified; E86.1 Hypovolemia; G43.909 Migraine, unspecified, not intractable, without status migrainosus; Z98.51 Tubal ligation status
CPT/HCPCS: 36415; 36430; 74177; 76830; 76856; 80053; 81001; 83036; 84703; 85007; 85018; 85025; 85027; 86850; 86900; 86901; 86920; 96361; 96374; 96375; J2270; J2405; J7030; J7040; P9016; Q9967

== ENCOUNTER 2018-03-06 10:27 | Emergency (ER) | payer SELFPAY ==
[2018-03-06 10:44] VITALS: BP 113/77
[2018-03-06] MEDS ORDERED: NACL 0.9% 1000 ML 1,000 ML IV ONE (10:47)
[2018-03-06 11:14] LABS: Mean Corpuscular HGB Conc 30 % (30-34); Platelet Count 199 K/mm3 (140-440); Red Blood Count 5.16 M/mm3 (3.65-5.03)
[2018-03-06 11:17] LABS: Hematocrit 35.6 % (30.3-42.9); Hemoglobin 10.7 gm/dl (10.1-14.3); Mean Corpuscular Hemoglobin 21 pg (28-32); Mean Corpuscular Volume 69 fl (79-97); Red Cell Distribution Width 32.8 % (13.2-15.2)
[2018-03-06 11:30] LABS: Alanine Aminotransferase 12 units/L (7-56); Albumin 4.2 g/dL (3.9-5); BUN/Creatinine Ratio 18; Blood Urea Nitrogen 11 mg/dL (7-17); Calcium 9.2 mg/dL (8.4-10.2); Hemolysis Index 59
--- NOTE | 2018-03-06 13:37 | Emergency Department Report ---
- General Chief complaint: Weakness Stated complaint: WEAKNESS/VOMITING Time Seen by Provider: 03/06/18 13:33 Source: patient Mode of arrival: Ambulatory Limitations: No Limitations - History of Present Illness Initial comments: Ms. Lama is a 37-year-old female with history of anemia. She is recently discharged February 16 for severe anemia. Hemoglobin 5.9. She still feels weakness and fatigue. She recently lost her job due to recent illness. Her job was unable to accommodate light duty. Complaint: generalized weakness -: Gradual, week(s) (2) Location: generalized Severity: mild Improves with: none Worsens with: none Context: recent illness - Related Data Home Medications Medication Instructions Recorded Confirmed Last Taken Ferrous Sulfate [Iron Supplement 325 mg PO DAILY 08/26/14 02/14/18 02/13/18 325 Mg tab] Previous Rx's Medication Instructions Recorded Last Taken Type Acetaminophen [Acetaminophen TAB] 325 mg PO Q4H PRN #12 tablet 02/16/18 Unknown Rx Docusate Sodium [Colace Clear] 50 mg PO BID #60 capsule 02/16/18 Unknown Rx oxyCODONE /ACETAMINOPHEN [Percocet 1 tab PO Q6H PRN #12 tablet 02/16/18 Unknown Rx 5/325 mg] Allergies Allergy/AdvReac Type Severity Reaction Status Date / Time No Known Allergies Allergy Verified 02/14/18 07:38 ED Review of Systems ROS: Stated complaint: WEAKNESS/VOMITING Other details as noted in HPI Comment: All other systems reviewed and negative Constitutional: malaise. denies: fever Respiratory: denies: cough Cardiovascular: denies: chest pain ED Past Medical Hx - Past Medical History Hx Hypertension: No Hx Congestive Heart Failure: No Hx Diabetes: No Hx Renal Disease: No Hx Headaches / Migraines: Yes Hx Asthma: No Hx COPD: No Additional medical history: Anemia - Surgical History Additional Surgical History: csection x 2, Fibroid tumor removal - Social History Smoking Status: Never Smoker - Medications Home Medications: Home Medications Medication Instructions Recorded Confirmed Last Taken Type Ferrous Sulfate [Iron Supplement 325 mg PO DAILY 08/26/14 02/14/18 02/13/18 History 325 Mg tab] Acetaminophen [Acetaminophen TAB] 325 mg PO Q4H PRN #12 tablet 02/16/18 Unknown Rx Docusate Sodium [Colace Clear] 50 mg PO BID #60 capsule 02/16/18 Unknown Rx oxyCODONE /ACETAMINOPHEN [Percocet 1 tab PO Q6H PRN #12 tablet 02/16/18 Unknown Rx 5/325 mg] ED Physical Exam - General Limitations: No Limitations General appearance: alert, in no apparent distress, other (appears well energetic talkative) - Head Head exam: Present: atraumatic, normocephalic - Eye Eye exam: Present: normal appearance - ENT ENT exam: Present: mucous membranes moist - Neck Neck exam: Present: normal inspection. Absent: tenderness, meningismus - Respiratory Respiratory exam: Present: normal lung sounds bilaterally. Absent: respiratory distress, wheezes, rales, rhonchi - Cardiovascular Cardiovascular Exam: Present: regular rate, normal rhythm, normal heart sounds. Absent: systolic murmur, diastolic murmur, rubs, gallop - GI/Abdominal GI/Abdominal exam: Present: soft, normal bowel sounds. Absent: distended, tenderness, guarding, rebound - Extremities Exam Extremities exam: Present: normal inspection - Back Exam Back exam: Present: normal inspection - Neurological Exam Neurological exam: Present: alert, oriented X3 - Psychiatric Psychiatric exam: Present: normal affect, normal mood - Skin Skin exam: Present: warm, dry, intact, normal color. Absent: rash ED Course Vital Signs 03/06/18 10:41 Temperature 97.7 F Pulse Rate 75 Respiratory 18 Rate Blood Pressure 113/77 O2 Sat by Pulse 100 Oximetry ED Medical Decision Making - Lab Data Result diagrams: 03/06/18 10:55 03/06/18 10:55 Laboratory Results - last 24 hr 03/06/18 03/06/18 10:55 10:55 WBC 5.2 RBC 5.16 H Hgb 10.7 Hct 35.6 MCV 69 L MCH 21 L MCHC 30 RDW 32.8 H Plt Count 199 Sodium 140 Potassium 4.4 Chloride 104.6 Carbon Dioxide 23 Anion Gap 17 BUN 11 Creatinine 0.6 L Estimated GFR > 60 BUN/Creatinine Ratio 18 Glucose 97 Calcium 9.2 Total Bilirubin 0.20 AST 28 ALT 12 Alkaline Phosphatase 52 Total Protein 7.5 Albumin 4.2 Albumin/Globulin Ratio 1.3 Vital Signs - 8 hr 03/06/18 10:41 Temperature 97.7 F Pulse Rate 75 Respiratory 18 Rate Blood Pressure 113/77 O2 Sat by Pulse 100 Oximetry - Medical Decision Making I reviewed previous electronic medical record. Patient had hemoglobin 5.9. Patient had menometrorrhagia due to uterine fibroids. I reviewed gynecological consultation by Dr. Andrade. Dr. Andrade recommended outpatient Pap smear and endometrial biopsy. Patient has hemoglobin 10 today. She actually appears well on exam. She has been compliant with iron therapy. Upon clarification, she saw Dr. Andrade today. [place] she decided to come for reevaluation in the ED. She was given reassurance. She is awaiting scheduling of outpatient surgery to address uterine fibroids she came to the ED today because she was concerned that she continued to have fatigue since discharge from the hospital.. Again, Ms. Lama appears quite well and energetic. She was given reassurance. Critical care attestation.: If time is entered above; I have spent that time in minutes in the direct care of this critically ill patient, excluding procedure time. ED Disposition Clinical Impression: Iron deficiency anemia, Uterine fibroid, Chronic blood loss anemia, Weakness Disposition: DC-01 TO HOME OR SELFCARE Is pt being admited?: No Does the pt Need Aspirin: No Condition: Stable Instructions: Iron Deficiency Anemia (ED) Referrals: ROCÍO DOZIER MD [Primary Care Provider] - 3-5 Days LIDIA ANDRADE MD [Staff Physician] - 3-5 Days Time of Disposition: 13:42
[2018-03-06 13:50] LABS: Total Cells Counted 100
[2018-03-06 13:51] LABS: Anisocytosis 3+; Hypochromasia 2+; Large Platelets Few; Ovalocytes Few; Platelet Estimate Cons; Poikilocytosis 1+; Schistocytes Rare; Tear Drop Cells Few
== END 2018-03-06 14:01 | disposition home or self-care (01) ==
LOC: ED 10:27
DX: D50.0 Iron deficiency anemia secondary to blood loss (chronic) (principal); D25.9 Leiomyoma of uterus, unspecified; G43.909 Migraine, unspecified, not intractable, without status migrainosus
CPT/HCPCS: 36415; 80053; 85007; 85025; 99283

== ENCOUNTER 2018-09-18 15:05 | Inpatient (IN) | payer SELFPAY ==
--- NOTE | 2018-09-18 15:48 | Emergency Department Report ---
Chief Complaint: Dyspnea/Respdistress Stated Complaint: SOB/HEADACHES/WEAK Time Seen by Provider: 09/18/18 15:44 - HPI History of Present Illness: Pt frontal TRUJILLO x 4 days (+) congestion, nausea, trujillo worse with lights, generalized weakness pt states has a hx of anemia last received transfusion a year ago per pt no fever pt states her PCP diagnosed her with migraines per pt but has never been on any meds pt has a hx of heavy menstrual cycles MSE complete MSE screening note: Focused history and physical exam performed. Due to findings the following was ordered: CBC, BMP ED Disposition for MSE Condition: Stable
[2018-09-18 16:29] LABS: Mean Corpuscular HGB Conc 28 % (30-34); Platelet Count 406 K/mm3 (140-440); Red Blood Count 3.51 M/mm3 (3.65-5.03)
[2018-09-18 16:34] LABS: BUN/Creatinine Ratio 10; Blood Urea Nitrogen 6 mg/dL (7-17); Calcium 8.6 mg/dL (8.4-10.2); Hemolysis Index 9
[2018-09-18 16:37] LABS: Hematocrit 20.7 % (30.3-42.9); Hemoglobin 5.8 gm/dl (10.1-14.3); Mean Corpuscular Volume 59 fl (79-97)
[2018-09-18 16:38] LABS: Red Cell Distribution Width 25.2 % (13.2-15.2)
[2018-09-18 17:42] LABS: Total Cells Counted 100
[2018-09-18 17:43] LABS: Anisocytosis 2+; Hypochromasia 3+
[2018-09-18 17:44] LABS: Giant Platelets 1+; Large Platelets 1+; Ovalocytes Few; Platelet Estimate Consistent w Auto; Poikilocytosis 1+
[2018-09-18] MEDS ORDERED: NACL 0.9% 500 ML 500 ML IV ONE (17:58)
--- NOTE | 2018-09-18 18:04 | Emergency Department Report ---
ED General Adult HPI - General Chief complaint: Headache Stated complaint: SOB/HEADACHES/WEAK Time Seen by Provider: 09/18/18 15:44 Source: patient Mode of arrival: Ambulatory Limitations: No Limitations - History of Present Illness Initial comments: Patient is 37 years old female with history of chronic anemia and menorrhagia secondary to uterine fibroids. Patient presented to the ER complaining of generalized weakness for the last 2 weeks. Patient stated that her period is 7 DAYS. Patient stated that she is stenting approximately 12 pads per day. Patient denied any chest pain. Patient stated that she followed up with his doctor Eriberto Andrade but because of her insurance she is unable to get her surgery done. Severity scale (0 -10): 7 - Related Data Home Medications Medication Instructions Recorded Confirmed Last Taken Ferrous Sulfate [Iron Supplement 325 mg PO DAILY 08/26/14 02/14/18 02/13/18 325 Mg tab] Previous Rx's Medication Instructions Recorded Last Taken Type Acetaminophen [Acetaminophen TAB] 325 mg PO Q4H PRN #12 tablet 02/16/18 Unknown Rx Docusate Sodium [Colace Clear] 50 mg PO BID #60 capsule 02/16/18 Unknown Rx oxyCODONE /ACETAMINOPHEN [Percocet 1 tab PO Q6H PRN #12 tablet 02/16/18 Unknown Rx 5/325 mg] Benzonatate [Tessalon Perle] 100 mg PO TID PRN #30 capsule 07/17/18 Unknown Rx Cetirizine HCl [All Day Allergy] 10 mg PO DAILY #30 tablet 07/17/18 Unknown Rx Fluticasone [Flonase] 1 spray NS QDAY #1 bottle 07/17/18 Unknown Rx Guaifenesin/Pseudoephedrne HCl 1 each PO BID #14 tab.er.12h 07/17/18 Unknown Rx [Mucinex D ER 600-60 mg Tablet] Allergies Allergy/AdvReac Type Severity Reaction Status Date / Time No Known Allergies Allergy Verified 02/14/18 07:38 ED Review of Systems ROS: Stated complaint: SOB/HEADACHES/WEAK Other details as noted in HPI Comment: All other systems reviewed and negative Constitutional: denies: chills, fever Respiratory: denies: cough, orthopnea, shortness of breath, SOB with exertion, SOB at rest Cardiovascular: denies: chest pain, palpitations Gastrointestinal: denies: abdominal pain, nausea, vomiting Genitourinary: abnormal menses ED Past Medical Hx - Past Medical History Hx Hypertension: No Hx Congestive Heart Failure: No Hx Diabetes: No Hx Renal Disease: No Hx Headaches / Migraines: Yes Hx Asthma: No Hx COPD: No Additional medical history: Anemia, History blood transfusions - Surgical History Additional Surgical History: csection x 2, Fibroid tumor removal, Tubal Ligation - Social History Smoking Status: Never Smoker Substance Use Type: None - Medications Home Medications: Home Medications Medication Instructions Recorded Confirmed Last Taken Type Ferrous Sulfate [Iron Supplement 325 mg PO DAILY 08/26/14 02/14/18 02/13/18 History 325 Mg tab] Acetaminophen [Acetaminophen TAB] 325 mg PO Q4H PRN #12 tablet 02/16/18 Unknown Rx Docusate Sodium [Colace Clear] 50 mg PO BID #60 capsule 02/16/18 Unknown Rx oxyCODONE /ACETAMINOPHEN [Percocet 1 tab PO Q6H PRN #12 tablet 02/16/18 Unknown Rx 5/325 mg] Benzonatate [Tessalon Perle] 100 mg PO TID PRN #30 capsule 07/17/18 Unknown Rx Cetirizine HCl [All Day Allergy] 10 mg PO DAILY #30 tablet 07/17/18 Unknown Rx Fluticasone [Flonase] 1 spray NS QDAY #1 bottle 07/17/18 Unknown Rx Guaifenesin/Pseudoephedrne HCl 1 each PO BID #14 tab.er.12h 07/17/18 Unknown Rx [Mucinex D ER 600-60 mg Tablet] ED Physical Exam - General Limitations: No Limitations General appearance: alert, in no apparent distress - Head Head exam: Present: atraumatic, normocephalic - Eye Eye exam: Present: other (pale conjuctiva) - ENT ENT exam: Present: normal exam, normal orophraynx, mucous membranes moist - Neck Neck exam: Present: normal inspection, full ROM. Absent: tenderness, meningismus, lymphadenopathy, thyromegaly - Respiratory Respiratory exam: Present: normal lung sounds bilaterally - Cardiovascular Cardiovascular Exam: Present: regular rate, normal rhythm, normal heart sounds - GI/Abdominal GI/Abdominal exam: Present: soft, normal bowel sounds. Absent: distended, tenderness, guarding, rebound, rigid, mass, bruit, pulsatile mass, hernia - Extremities Exam Extremities exam: Present: normal inspection, full ROM, normal capillary refill. Absent: calf tenderness - Back Exam Back exam: Present: normal inspection, full ROM - Neurological Exam Neurological exam: Present: alert, oriented X3, CN II-XII intact, normal gait, reflexes normal - Skin Skin exam: Present: warm, intact, normal color ED Course Vital Signs 09/18/18 09/18/18 15:47 17:45 Temperature 97.9 F 98.5 F Pulse Rate 78 68 Respiratory 18 15 Rate Blood Pressure 121/56 Blood Pressure 116/53 [Left] O2 Sat by Pulse 100 100 Oximetry ED Medical Decision Making - Lab Data Result diagrams: 09/18/18 15:54 09/18/18 15:54 - Medical Decision Making Patient is 37 years old female with history of chronic anemia and menorrhagia secondary to uterine fibroids. Patient presented to the ER complaining of generalized weakness for the last 2 weeks. Patient stated that her period is 7 DAYS. Patient stated that she is stenting approximately 12 pads per day. Patient denied any chest pain. Patient stated that she followed up with his doctor Eriberto Andrade but because of her insurance she is unable to get her surgery done. Patient found to have a hemoglobin of 5.8. 1 units of PRBC ordered. I discussed the patient with Dr. Malik, he agreed to admit the patient to medical service. Critical Care Time: Yes Critical care time in (mins) excluding proc time.: 30 Critical care attestation.: If time is entered above; I have spent that time in minutes in the direct care of this critically ill patient, excluding procedure time. ED Disposition Clinical Impression: Symptomatic anemia, Chronic blood loss anemia Disposition: OP ADMIT IP TO THIS HOSP Is pt being admited?: Yes Condition: Stable Referrals: ROCÍO DOZIER MD [Primary Care Provider] - 3-5 Days
[2018-09-19] MEDS ORDERED: TYLENOL PO PRN (02:21)
[2018-09-19] MEDS ORDERED: ZOFRAN IV PRN (02:21)
[2018-09-19] MEDS ORDERED: SODIUM CHLORIDE FLUSH SYRINGE 10 ML IV PRN (02:21)
[2018-09-19] MEDS ORDERED: DILAUDID IV PRN (02:21)
[2018-09-19] MEDS ORDERED: AMBIEN PO PRN (02:21)
--- NOTE | 2018-09-19 02:21 | History and Physical Report ---
History of Present Illness Date of examination: 09/18/18 Date of admission: 09/18/18 18:04 Chief complaint: Severe weakness for 2 weeks History of present illness: 37 years old female with history of menorrhagia secondary to uterine fibroid presents to the ER complaining of generalized weakness for the last 2 weeks. Patient states that her period lasts 7 to 10 DAYS. Apparently hd Fibroidectomy in past.Follows with Jordy Andrade. Patient denies any chest pain. Has some exertional dyspnea.No orthonea. Dr Brenda Andrade planning for partial Hysterectomy as out patient.Changes about 12 pads per day during menstrual cycle. Past Medical History Hx Headaches / Migraines: Yes Additional medical history: Anemia, History blood transfusions Surgical History Additional Surgical History: csection x 2, Fibroid tumor removal, Tubal Ligation Social History Smoking Status: Never Smoker Substance Use Type: None Medications Home Medications: Home Medications Medication Instructions Recorded Confirmed Last Taken Type Ferrous Sulfate [Iron Supplement 325 mg PO DAILY 08/26/14 02/14/18 02/13/18 History 325 Mg tab] Acetaminophen [Acetaminophen TAB] 325 mg PO Q4H PRN #12 tablet 02/16/18 Unknown Rx Docusate Sodium [Colace Clear] 50 mg PO BID #60 capsule 02/16/18 Unknown Rx oxyCODONE /ACETAMINOPHEN [Percocet 1 tab PO Q6H PRN #12 tablet 02/16/18 Unknown Rx 5/325 mg] Benzonatate [Tessalon Perle] 100 mg PO TID PRN #30 capsule 07/17/18 Unknown Rx Cetirizine HCl [All Day Allergy] 10 mg PO DAILY #30 tablet 07/17/18 Unknown Rx Fluticasone [Flonase] 1 spray NS QDAY #1 bottle 07/17/18 Unknown Rx Guaifenesin/Pseudoephedrne HCl 1 each PO BID #14 tab.er.12h 07/17/18 Unknown Rx [Mucinex D ER 600-60 mg Tablet] Review of Systems ROS: Stated complaint: SOB/HEADACHES/WEAK Other details as noted in HPI Comment: All other systems reviewed and negative Constitutional: denies: chills, fever Respiratory: denies: cough, orthopnea, shortness of breath, SOB with exertion, SOB at rest Cardiovascular: denies: chest pain, palpitations Gastrointestinal: denies: abdominal pain, nausea, vomiting Genitourinary: abnormal menses Medications and Allergies Allergies Allergy/AdvReac Type Severity Reaction Status Date / Time No Known Allergies Allergy Verified 02/14/18 07:38 Home Medications Medication Instructions Recorded Confirmed Last Taken Type Ferrous Sulfate [Iron Supplement 325 mg PO DAILY 08/26/14 09/19/18 02/13/18 History 325 Mg tab] Acetaminophen [Acetaminophen TAB] 325 mg PO Q4H PRN #12 tablet 02/16/18 09/19/18 Unknown Rx Exam - Constitutional Vitals: Temp Pulse Resp BP Pulse Ox 98.3 F 71 20 119/69 100 09/18/18 21:39 09/18/18 21:39 09/18/18 21:39 09/18/18 21:39 09/18/18 21:39 General appearance: Present: no acute distress, well-nourished - EENT Eyes: Present: PERRL ENT: hearing intact, clear oral mucosa, other (Pale con\juntiva) - Neck Neck: Present: supple, normal ROM - Respiratory Respiratory effort: normal Respiratory: bilateral: CTA - Cardiovascular Heart rate: 90 Rhythm: regular Heart Sounds: Present: S1 & S2. Absent: rub, click - Extremities Extremities: no ischemia, pulses intact, pulses symmetrical, No edema Peripheral Pulses: within normal limits - Abdominal General gastrointestinal: Present: soft, non-tender, non-distended, normal bowel sounds Female genitourinary: Present: normal - Rectal Rectal Exam: deferred - Integumentary Integumentary: Present: clear, warm, dry - Musculoskeletal Musculoskeletal: gait normal, strength equal bilaterally - Psychiatric Psychiatric: appropriate mood/affect, intact judgment & insight - Neurologic Neurologic: CNII-XII intact, moves all extremities - Allied Health Allied health notes reviewed: nursing, case management Results - Labs CBC & Chem 7: 09/18/18 15:54 09/18/18 15:54 Labs: Laboratory Last Values WBC 4.6 K/mm3 (4.5-11.0) 09/18/18 15:54 RBC 3.51 M/mm3 (3.65-5.03) L 09/18/18 15:54 Hgb 5.8 gm/dl (10.1-14.3) L* 09/18/18 15:54 Hct 20.7 % (30.3-42.9) L 09/18/18 15:54 MCV 59 fl (79-97) L 09/18/18 15:54 MCH 17 pg (28-32) L 09/18/18 15:54 MCHC 28 % (30-34) L 09/18/18 15:54 RDW 25.2 % (13.2-15.2) H 09/18/18 15:54 Plt Count 406 K/mm3 (140-440) 09/18/18 15:54 Lymph % (Auto) Critical Care Registered Nurse 09/18/18 15:54 Add Manual Diff Complete 09/18/18 15:54 Total Counted 100 09/18/18 15:54 Seg Neuts % (Manual) 66.0 % (40.0-70.0) 09/18/18 15:54 Band Neutrophils % 0 % 09/18/18 15:54 Lymphocytes % (Manual) 27.0 % (13.4-35.0) 09/18/18 15:54 Reactive Lymphs % (Man) 0 % 09/18/18 15:54 Monocytes % (Manual) 2.0 % (0.0-7.3) 09/18/18 15:54 Eosinophils % (Manual) 2.0 % (0.0-4.3) 09/18/18 15:54 Basophils % (Manual) 3.0 % (0.0-1.8) H 09/18/18 15:54 Metamyelocytes % 0 % 09/18/18 15:54 Myelocytes % 0 % 09/18/18 15:54 Promyelocytes % 0 % 09/18/18 15:54 Blast Cells % 0 % 09/18/18 15:54 Nucleated RBC % Not Reportable 09/18/18 15:54 Seg Neutrophils # Man 3.0 K/mm3 (1.8-7.7) 09/18/18 15:54 Band Neutrophils # 0.0 K/mm3 09/18/18 15:54 Lymphocytes # (Manual) 1.2 K/mm3 (1.2-5.4) 09/18/18 15:54 Abs React Lymphs (Man) 0.0 K/mm3 09/18/18 15:54 Monocytes # (Manual) 0.1 K/mm3 (0.0-0.8) 09/18/18 15:54 Eosinophils # (Manual) 0.1 K/mm3 (0.0-0.4) 09/18/18 15:54 Basophils # (Manual) 0.1 K/mm3 (0.0-0.1) 09/18/18 15:54 Metamyelocytes # 0.0 K/mm3 09/18/18 15:54 Myelocytes # 0.0 K/mm3 09/18/18 15:54 Promyelocytes # 0.0 K/mm3 09/18/18 15:54 Blast Cells # 0.0 K/mm3 09/18/18 15:54 WBC Morphology Not Reportable 09/18/18 15:54 Hypersegmented Neuts Not Reportable 09/18/18 15:54 Hyposegmented Neuts Not Reportable 09/18/18 15:54 Hypogranular Neuts Not Reportable 09/18/18 15:54 Smudge Cells Not Reportable 09/18/18 15:54 Toxic Granulation Not Reportable 09/18/18 15:54 Toxic Vacuolation Not Reportable 09/18/18 15:54 Dohle Bodies Not Reportable 09/18/18 15:54 Pelger-Huet Anomaly Not Reportable 09/18/18 15:54 Thais Rods Not Reportable 09/18/18 15:54 Platelet Estimate Consistent w auto 09/18/18 15:54 Clumped Platelets Not Reportable 09/18/18 15:54 Plt Clumps, EDTA Not Reportable 09/18/18 15:54 Large Platelets 1+ 09/18/18 15:54 Giant Platelets 1+ 09/18/18 15:54 Platelet Satelliting Not Reportable 09/18/18 15:54 Plt Morphology Comment Not Reportable 09/18/18 15:54 RBC Morphology Not Reportable 09/18/18 15:54 Dimorphic RBCs Not Reportable 09/18/18 15:54 Polychromasia Not Reportable 09/18/18 15:54 Hypochromasia 3+ 09/18/18 15:54 Poikilocytosis 1+ 09/18/18 15:54 Anisocytosis 2+ 09/18/18 15:54 Microcytosis 3+ 09/18/18 15:54 Macrocytosis Not Reportable 09/18/18 15:54 Spherocytes Not Reportable 09/18/18 15:54 Pappenheimer Bodies Not Reportable 09/18/18 15:54 Sickle Cells Not Reportable 09/18/18 15:54 Target Cells Not Reportable 09/18/18 15:54 Tear Drop Cells Not Reportable 09/18/18 15:54 Ovalocytes Few 09/18/18 15:54 Helmet Cells Not Reportable 09/18/18 15:54 [place] Bodies Not Reportable 09/18/18 15:54 [place] Rings Not Reportable 09/18/18 15:54 [place] Cells Not Reportable 09/18/18 15:54 Bite Cells Not Reportable 09/18/18 15:54 Crenated Cell Not Reportable 09/18/18 15:54 Elliptocytes Few 09/18/18 15:54 Acanthocytes (Spur) Not Reportable 09/18/18 15:54 Rouleaux Not Reportable 09/18/18 15:54 Hemoglobin C Crystals Not Reportable 09/18/18 15:54 Schistocytes Not Reportable 09/18/18 15:54 Malaria parasites Not Reportable 09/18/18 15:54 [place]ana Bodies Not Reportable 09/18/18 15:54 Hem Pathologist Commnt No 09/18/18 15:54 Sodium 142 mmol/L (137-145) 09/18/18 15:54 Potassium 3.8 mmol/L (3.6-5.0) 09/18/18 15:54 Chloride 108.4 mmol/L (98-107) H 09/18/18 15:54 Carbon Dioxide 23 mmol/L (22-30) 09/18/18 15:54 Anion Gap 14 mmol/L 09/18/18 15:54 BUN 6 mg/dL (7-17) L 09/18/18 15:54 Creatinine 0.6 mg/dL (0.7-1.2) L 09/18/18 15:54 Estimated GFR > 60 ml/min 09/18/18 15:54 BUN/Creatinine Ratio 10 % 09/18/18 15:54 Glucose 101 mg/dL (65-100) H 09/18/18 15:54 Calcium 8.6 mg/dL (8.4-10.2) 09/18/18 15:54 Blood Type O POSITIVE 09/18/18 16:50 Antibody Screen Negative 09/18/18 16:50 Crossmatch See Detail 09/18/18 16:50 Short CBC 09/18/18 Range/Units 15:54 WBC 4.6 (4.5-11.0) K/mm3 Hgb 5.8 L* (10.1-14.3) gm/dl Hct 20.7 L (30.3-42.9) % Plt Count 406 (140-440) K/mm3 [facility] 09/18/18 15:54 Sodium 142 Potassium 3.8 Chloride 108.4 H Carbon Dioxide 23 BUN 6 L Creatinine 0.6 L Glucose 101 H Calcium 8.6 Assessment and Plan Advance Directives: Yes (Full code) VTE prophylaxis?: Chemical, Mechanical Plan of care discussed with patient/family: Yes - Patient Problems (1) Symptomatic anemia Onset Date: 02/15/18 Current Visit: Yes Status: Acute Plan to address problem: Sec to chronic blood loss from Menorrhagia Transfuse 2 units of blood Needs Hysterectomy as outpatient or embolization weill get IR consult. (2) Menorrhagia Current Visit: Yes Status: Chronic Qualifiers: Menorrahagia type: with regular cycle Qualified Code(s): N92.0 - Excessive and frequent menstruation with regular cycle Plan to address problem: Sec to Fibroids Will defer to IR /Family Dinner Service Specialist (3) DVT prophylaxis Current Visit: Yes Status: Acute Plan to address problem: On SCD's and GI prophylaxis
[2018-09-19] MEDS: PERCOCET 5/325 PO PRN ×2 (04:47→16:04)
[2018-09-19 06:49] LABS: Hematocrit 21.8 % (30.3-42.9); Hemoglobin 6.3 gm/dl (10.1-14.3); Mean Corpuscular HGB Conc 29 % (30-34); Platelet Count 374 K/mm3 (140-440); Red Blood Count 3.53 M/mm3 (3.65-5.03)
[2018-09-19 06:58] LABS: Mean Corpuscular Volume 62 fl (79-97)
[2018-09-19 07:00] LABS: Red Cell Distribution Width 28.2 % (13.2-15.2)
[2018-09-19] MEDS ORDERED: NACL 0.9% 500 ML 500 ML IV NR (08:12)
--- NOTE | 2018-09-19 08:18 | Progress Note ---
Assessment and Plan Assessment and plan: --Symptomatic anemia; secondary to dysphagia History of anemic PRBC transfusion, today hemoglobin is 6.8 Transfuse additional PRBC follow H&H --History of menorrhagia; supportive care Patient advised to see private NURSING STAFF DEVELOPMENT COORDINATOR upon discharge for further evaluation And management --History of fibroid uterus; the patient strongly advised to follow NURSING STAFF DEVELOPMENT COORDINATOR For further evaluation and management --DVT prophylaxis; SCD Hospitalist Physical - Constitutional Vitals: Temp Pulse Resp BP Pulse Ox 98.3 F 71 20 105/69 100 09/18/18 21:39 09/19/18 04:45 09/19/18 04:45 09/19/18 04:45 09/19/18 04:45 General appearance: Present: no acute distress, well-nourished Results - Labs CBC & Chem 7: 09/19/18 04:37 09/18/18 15:54 Labs: Laboratory Last Values WBC 4.0 K/mm3 (4.5-11.0) L 09/19/18 04:37 RBC 3.53 M/mm3 (3.65-5.03) L 09/19/18 04:37 Hgb 6.3 gm/dl (10.1-14.3) L 09/19/18 04:37 Hct 21.8 % (30.3-42.9) L 09/19/18 04:37 MCV 62 fl (79-97) L 09/19/18 04:37 MCH 18 pg (28-32) L 09/19/18 04:37 MCHC 29 % (30-34) L 09/19/18 04:37 RDW 28.2 % (13.2-15.2) H 09/19/18 04:37 Plt Count 374 K/mm3 (140-440) 09/19/18 04:37 Lymph % (Auto) Legal Consultant 09/18/18 15:54 Add Manual Diff Complete 09/18/18 15:54 Total Counted 100 09/18/18 15:54 Seg Neuts % (Manual) 66.0 % (40.0-70.0) 09/18/18 15:54 Band Neutrophils % 0 % 09/18/18 15:54 Lymphocytes % (Manual) 27.0 % (13.4-35.0) 09/18/18 15:54 Reactive Lymphs % (Man) 0 % 09/18/18 15:54 Monocytes % (Manual) 2.0 % (0.0-7.3) 09/18/18 15:54 Eosinophils % (Manual) 2.0 % (0.0-4.3) 09/18/18 15:54 Basophils % (Manual) 3.0 % (0.0-1.8) H 09/18/18 15:54 Metamyelocytes % 0 % 09/18/18 15:54 Myelocytes % 0 % 09/18/18 15:54 Promyelocytes % 0 % 09/18/18 15:54 Blast Cells % 0 % 09/18/18 15:54 Nucleated RBC % Not Reportable 09/18/18 15:54 Seg Neutrophils # Man 3.0 K/mm3 (1.8-7.7) 09/18/18 15:54 Band Neutrophils # 0.0 K/mm3 09/18/18 15:54 Lymphocytes # (Manual) 1.2 K/mm3 (1.2-5.4) 09/18/18 15:54 Abs React Lymphs (Man) 0.0 K/mm3 09/18/18 15:54 Monocytes # (Manual) 0.1 K/mm3 (0.0-0.8) 09/18/18 15:54 Eosinophils # (Manual) 0.1 K/mm3 (0.0-0.4) 09/18/18 15:54 Basophils # (Manual) 0.1 K/mm3 (0.0-0.1) 09/18/18 15:54 Metamyelocytes # 0.0 K/mm3 09/18/18 15:54 Myelocytes # 0.0 K/mm3 09/18/18 15:54 Promyelocytes # 0.0 K/mm3 09/18/18 15:54 Blast Cells # 0.0 K/mm3 09/18/18 15:54 WBC Morphology Not Reportable 09/18/18 15:54 Hypersegmented Neuts Not Reportable 09/18/18 15:54 Hyposegmented Neuts Not Reportable 09/18/18 15:54 Hypogranular Neuts Not Reportable 09/18/18 15:54 Smudge Cells Not Reportable 09/18/18 15:54 Toxic Granulation Not Reportable 09/18/18 15:54 Toxic Vacuolation Not Reportable 09/18/18 15:54 Dohle Bodies Not Reportable 09/18/18 15:54 Pelger-Huet Anomaly Not Reportable 09/18/18 15:54 Thais Rods Not Reportable 09/18/18 15:54 Platelet Estimate Consistent w auto 09/18/18 15:54 Clumped Platelets Not Reportable 09/18/18 15:54 Plt Clumps, EDTA Not Reportable 09/18/18 15:54 Large Platelets 1+ 09/18/18 15:54 Giant Platelets 1+ 09/18/18 15:54 Platelet Satelliting Not Reportable 09/18/18 15:54 Plt Morphology Comment Not Reportable 09/18/18 15:54 RBC Morphology Not Reportable 09/18/18 15:54 Dimorphic RBCs Not Reportable 09/18/18 15:54 Polychromasia Not Reportable 09/18/18 15:54 Hypochromasia 3+ 09/18/18 15:54 Poikilocytosis 1+ 09/18/18 15:54 Anisocytosis 2+ 09/18/18 15:54 Microcytosis 3+ 09/18/18 15:54 Macrocytosis Not Reportable 09/18/18 15:54 Spherocytes Not Reportable 09/18/18 15:54 Pappenheimer Bodies Not Reportable 09/18/18 15:54 Sickle Cells Not Reportable 09/18/18 15:54 Target Cells Not Reportable 09/18/18 15:54 Tear Drop Cells Not Reportable 09/18/18 15:54 Ovalocytes Few 09/18/18 15:54 Helmet Cells Not Reportable 09/18/18 15:54 [place] Bodies Not Reportable 09/18/18 15:54 [place] Rings Not Reportable 09/18/18 15:54 [place] Cells Not Reportable 09/18/18 15:54 Bite Cells Not Reportable 09/18/18 15:54 Crenated Cell Not Reportable 09/18/18 15:54 Elliptocytes Few 09/18/18 15:54 Acanthocytes (Spur) Not Reportable 09/18/18 15:54 Rouleaux Not Reportable 09/18/18 15:54 Hemoglobin C Crystals Not Reportable 09/18/18 15:54 Schistocytes Not Reportable 09/18/18 15:54 Malaria parasites Not Reportable 09/18/18 15:54 Kana Bodies Not Reportable 09/18/18 15:54 Hem Pathologist Commnt No 09/18/18 15:54 Sodium 142 mmol/L (137-145) 09/18/18 15:54 Potassium 3.8 mmol/L (3.6-5.0) 09/18/18 15:54 Chloride 108.4 mmol/L (98-107) H 09/18/18 15:54 Carbon Dioxide 23 mmol/L (22-30) 09/18/18 15:54 Anion Gap 14 mmol/L 09/18/18 15:54 BUN 6 mg/dL (7-17) L 09/18/18 15:54 Creatinine 0.6 mg/dL (0.7-1.2) L 09/18/18 15:54 Estimated GFR > 60 ml/min 09/18/18 15:54 BUN/Creatinine Ratio 10 % 09/18/18 15:54 Glucose 101 mg/dL (65-100) H 09/18/18 15:54 Calcium 8.6 mg/dL (8.4-10.2) 09/18/18 15:54 Blood Type O POSITIVE 09/18/18 16:50 Antibody Screen Negative 09/18/18 16:50 Crossmatch See Detail 09/18/18 16:50
--- NOTE | 2018-09-19 09:06 | Consultation ---
History of Present Illness Consult date: 09/19/18 Requesting physician: COREY VARGAS Reason for consult: menorrhagia, other (uterine fibroids) History of present illness: Patient is a 37-year-old black female LMP 09/10/2018 who represented to [facility] ER with complaints of abdominal pain and weakness after a week of prolonged heavy vaginal bleeding. She has a history of uterine fibroids but has been unable to get surgical evaluation because of lack of insurance. She was supposed to follow up with me when I last saw her 02/15/18. A pelvic CT scan was done during her previous admission showing the uterus to be 17.8 x 14.1 x 8.8 cm. She has received a blood transfusion, and is feeling better. 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 CONTROL SUPERVISOR History: fibroids Family/Genetic History: none Social history: no significant social history, single - Obstetrical History : 2 Medications and Allergies Allergies Allergy/AdvReac Type Severity Reaction Status Date / Time No Known Allergies Allergy Verified 02/14/18 07:38 Home Medications Medication Instructions Recorded Confirmed Last Taken Type Ferrous Sulfate [Iron Supplement 325 mg PO DAILY 08/26/14 09/19/18 02/13/18 History 325 Mg tab] Acetaminophen [Acetaminophen TAB] 325 mg PO Q4H PRN #12 tablet 02/16/18 09/19/18 Unknown Rx Active Meds: Active Medications Acetaminophen (Tylenol) 650 mg PO Q4H PRN PRN Reason: Pain MILD(1-3)/Fever >100.5/TRUJILLO Famotidine (Pepcid) 20 mg PO BID CONNIE Hydromorphone HCl (Dilaudid) 0.5 mg IV Q3H PRN PRN Reason: Pain , Severe (7-10) Sodium Chloride (Nacl 0.9% 500 Ml) 500 mls @ 0 mls/hr IV ONCE NR Stop: 09/19/18 13:00 Ondansetron HCl (Zofran) 4 mg IV Q8H PRN PRN Reason: Nausea And Vomiting Oxycodone/Acetaminophen (Percocet 5/325) 1 tab PO Q6H PRN PRN Reason: Pain, Moderate (4-6) Last Admin: 09/19/18 04:47 Dose: 1 tab Documented by: Sodium Chloride (Sodium Chloride Flush Syringe 10 Ml) 10 ml IV BID CONNIE Sodium Chloride (Sodium Chloride Flush Syringe 10 Ml) 10 ml IV PRN PRN PRN Reason: LINE FLUSH Zolpidem Tartrate (Ambien) 5 mg PO QHS PRN PRN Reason: Insomnia Review of Systems All systems: negative - Vital Signs Vital signs: Vital Signs Temp Pulse Resp BP Pulse Ox 97.9 F 78 18 121/56 100 09/18/18 15:47 09/18/18 15:47 09/18/18 15:47 09/18/18 15:47 09/18/18 15:47 Temp Pulse Resp BP Pulse Ox 98.3 F 71 20 105/69 100 09/18/18 21:39 09/19/18 04:45 09/19/18 04:45 09/19/18 04:45 09/19/18 04:45 - Physical Exam Breasts: Positive: deferred Cardiovascular: Regular rate Lungs: Positive: Clear to auscultation Abdomen: Positive: normal appearance Genitourinary (Female): Positive: normal external genitalia Uterus: Positive: enlarged Extremities: Positive: normal Results Result Diagrams: 09/19/18 15:54 09/18/18 15:54 Abnormal lab results 09/18/18 09/18/18 09/18/18 Range/Units 15:54 15:54 16:50 WBC (4.5-11.0) K/mm3 RBC 3.51 L (3.65-5.03) M/mm3 Hgb 5.8 L* (10.1-14.3) gm/dl Hct 20.7 L (30.3-42.9) % MCV 59 L (79-97) fl MCH 17 L (28-32) pg MCHC 28 L (30-34) % RDW 25.2 H (13.2-15.2) % Basophils % (Manual) 3.0 H (0.0-1.8) % Chloride 108.4 H (98-107) mmol/L BUN 6 L (7-17) mg/dL Creatinine 0.6 L (0.7-1.2) mg/dL Glucose 101 H (65-100) mg/dL Crossmatch See Detail 09/19/18 Range/Units 04:37 WBC 4.0 L (4.5-11.0) K/mm3 RBC 3.53 L (3.65-5.03) M/mm3 Hgb 6.3 L (10.1-14.3) gm/dl Hct 21.8 L (30.3-42.9) % MCV 62 L (79-97) fl MCH 18 L (28-32) pg MCHC 29 L (30-34) % RDW 28.2 H (13.2-15.2) % Basophils % (Manual) (0.0-1.8) % Chloride (98-107) mmol/L BUN (7-17) mg/dL Creatinine (0.7-1.2) mg/dL Glucose (65-100) mg/dL Crossmatch All other labs normal. Ultrasound: pending Assessment and Plan - Patient Problems (1) Leiomyoma Onset Date: ~09/19/18 Current Visit: Yes Status: Acute Plan to address problem: A: Symptomatic anemia Uterine fibroids Menorrhagia - most likely due to uterine fibroids Chronic blood loss anemia - most likely due to menorrhagia P: Agree with admission for blood transfusion Will obtain a pelvic ultrasound to delineate uterine fibroids She can follow up in the office for a Pap smear and endometrial biopsy No immediate intervention at this time Thank you for this consultation - I will be glad to follow up with Ms Lama in the office next week (2) Symptomatic anemia Onset Date: 02/15/18 Current Visit: Yes Status: Acute (3) Chronic blood loss anemia Onset Date: 02/15/18 Current Visit: Yes Status: Chronic (4) Menorrhagia Onset Date: ~09/19/18 Current Visit: Yes Status: Chronic Qualifiers: Menorrahagia type: with regular cycle Qualified Code(s): N92.0 - Excessive and frequent menstruation with regular cycle
[2018-09-19] MEDS ORDERED: PEPCID PO SCH (10:00)
[2018-09-19] MEDS ORDERED: SODIUM CHLORIDE FLUSH SYRINGE 10 ML IV SCH (10:00)
[2018-09-19 10:46] LABS: Bilirubin,Urine NEG (Negative); Color,Urine Yellow (Yellow)
[2018-09-19 10:47] LABS: Bacteria,Urine 1+ /HPF (Negative); Blood,Urine LG (Negative); Mucus,Urine 1+ /HPF; Protein,Urine <15 mg/dL mg/dL (Negative); Urobilinogen,Urine < 2.0 mg/dL (<2.0)
[2018-09-19 11:01] LABS: HCG Qualitative,Urine Negative (Negative)
--- NOTE | 2018-09-19 11:11 | Consultation ---
History of Present Illness - Reason for Consult Consult date: 09/19/18 prolonged uterine bleeding - History of Present Illness Patient with a history of uterine fibroids status post prior myomectomy. She presents with prolonged bleeding and anemia Quiring transfusions. Consult for possible consideration for embolization. On exam, the patient has no specific complaints. Status post blood transfusion. Past History Past Medical History: other (fibroids) Past Surgical History: Other (myomectomy) Social history: no significant social history Family history: no significant family history Medications and Allergies Allergies Allergy/AdvReac Type Severity Reaction Status Date / Time No Known Allergies Allergy Verified 02/14/18 07:38 Home Medications Medication Instructions Recorded Confirmed Last Taken Type Ferrous Sulfate [Iron Supplement 325 mg PO DAILY 08/26/14 09/19/18 02/13/18 H istory 325 Mg tab] Acetaminophen [Acetaminophen TAB] 325 mg PO Q4H PRN #12 tablet 02/16/18 09/19/18 Unknown Rx Active Meds: Active Medications Acetaminophen (Tylenol) 650 mg PO Q4H PRN PRN Reason: Pain MILD(1-3)/Fever >100.5/TRUJILLO Famotidine (Pepcid) 20 mg PO BID [facility] Last Admin: 09/19/18 09:27 Dose: 20 mg Documented by: Hydromorphone HCl (Dilaudid) 0.5 mg IV Q3H PRN PRN Reason: Pain , Severe (7-10) Sodium Chloride (Nacl 0.9% 500 Ml) 500 mls @ 0 mls/hr IV ONCE NR Stop: 09/19/18 13:00 Last Admin: 09/19/18 09:29 Dose: 50 mls/hr Documented by: Ondansetron HCl (Zofran) 4 mg IV Q8H PRN PRN Reason: Nausea And Vomiting Oxycodone/Acetaminophen (Percocet 5/325) 1 tab PO Q6H PRN PRN Reason: Pain, Moderate (4-6) Last Admin: 09/19/18 04:47 Dose: 1 tab Documented by: Sodium Chloride (Sodium Chloride Flush Syringe 10 Ml) 10 ml IV BID [facility] Last Admin: 09/19/18 09:28 Dose: 10 ml Documented by: Sodium Chloride (Sodium Chloride Flush Syringe 10 Ml) 10 ml IV PRN PRN PRN Reason: LINE FLUSH Zolpidem Tartrate (Ambien) 5 mg PO QHS PRN PRN Reason: Insomnia Review of Systems All systems: negative Exam - Constitutional Vitals: Temp Pulse Resp BP Pulse Ox 98.3 F 71 20 105/69 100 09/18/18 21:39 09/19/18 04:45 09/19/18 04:45 09/19/18 04:45 09/19/18 04:45 General appearance: Present: no acute distress - EENT Eyes: Present: PERRL, EOM intact ENT: hearing intact - Neck Neck: Present: supple, normal ROM - Respiratory Respiratory effort: normal - Extremities Extremities: no ischemia - Abdominal General gastrointestinal: Present: soft - Rectal Rectal Exam: deferred - Psychiatric Psychiatric: appropriate mood/affect, cooperative - Neurologic Neurologic: no focal deficits Results - Labs CBC & Chem 7: 09/19/18 04:37 09/18/18 15:54 Labs: Abnormal lab results 09/18/18 09/18/18 09/18/18 Range/Units 15:54 15:54 16:50 WBC (4.5-11.0) K/mm3 RBC 3.51 L (3.65-5.03) M/mm3 Hgb 5.8 L* (10.1-14.3) gm/dl Hct 20.7 L (30.3-42.9) % MCV 59 L (79-97) fl MCH 17 L (28-32) pg MCHC 28 L (30-34) % RDW 25.2 H (13.2-15.2) % Basophils % (Manual) 3.0 H (0.0-1.8) % Chloride 108.4 H (98-107) mmol/L BUN 6 L (7-17) mg/dL Creatinine 0.6 L (0.7-1.2) mg/dL Glucose 101 H (65-100) mg/dL Urine WBC (Auto) (0.0-6.0) /HPF Crossmatch See Detail 09/19/18 09/19/18 Range/Units 04:37 10:31 WBC 4.0 L (4.5-11.0) K/mm3 RBC 3.53 L (3.65-5.03) M/mm3 Hgb 6.3 L (10.1-14.3) gm/dl Hct 21.8 L (30.3-42.9) % MCV 62 L (79-97) fl MCH 18 L (28-32) pg MCHC 29 L (30-34) % RDW 28.2 H (13.2-15.2) % Basophils % (Manual) (0.0-1.8) % Chloride (98-107) mmol/L BUN (7-17) mg/dL Creatinine (0.7-1.2) mg/dL Glucose (65-100) mg/dL Urine WBC (Auto) 13.0 H (0.0-6.0) /HPF Crossmatch - Imaging and Cardiology CT scan - pelvis: image reviewed Assessment and Plan Patient with recurrent symptomatic uterine fibroids. Evaluation of her CT scan demonstrates intramural fibroids predominantly. There are no intracavitary fibroids. The patient would be an excellent candidate for uterine fibroid embolization should she choose to do so. Lengthy discussion was held with the patient regarding possible options including repeat myomectomy, hysterectomy and fibroid embolization. No emergent indication during this hospitalization. Patient may follow-up as an outpatient when she has reached a decision.
--- NOTE | 2018-09-19 13:46 | Consultation ---
History of Present Illness Consult date: 09/19/18 Requesting physician: COREY VARGAS Reason for consult: menorrhagia History of present illness: 37y/o with a history uterine fibroids and abnormal vaginal bleeding. The patient reports her menses lasts for 8 days with the passage of clots and flooding. The patient has a long-standing history of uterine fibroids and underwent a myomectomy 3 years ago. She has no future fertility considerations. An ultrasound performed 02/14/2018 demonstrated enlarged uterus measuring 19.3 cm in its largest dimension. The largest leiomyoma was 5.2 cm. The ultrasound demonstrated multiple leiomyomas. The patient presents to the emergency department with severe iron deficiency anemia. Past History Past Medical History: other (anemia; leiomyoma) Past Surgical History: section, myomectomy, other (tubal ligation) [employer] History: fibroids Social history: single - Obstetrical History : 2 Para: 2 Hx # Term Pregnancies: 2 Number of Pregnancies: 0 Spontaneous Abortions: 0 Induced : 0 Number of Living Children: 2 Medications and Allergies Allergies Allergy/AdvReac Type Severity Reaction Status Date / Time No Known Allergies Allergy Verified 02/14/18 07:38 Home Medications Medication Instructions Recorded Confirmed Last Taken Type Ferrous Sulfate [Iron Supplement 325 mg PO DAILY 08/26/14 09/19/18 02/13/18 History 325 Mg tab] Acetaminophen [Acetaminophen TAB] 325 mg PO Q4H PRN #12 tablet 02/16/18 09/19/18 Unknown Rx Active Meds: Active Medications Acetaminophen (Tylenol) 650 mg PO Q4H PRN PRN Reason: Pain MILD(1-3)/Fever >100.5/TRUJILLO Famotidine (Pepcid) 20 mg PO BID CONNIE Last Admin: 09/19/18 09:27 Dose: 20 mg Documented by: Hydromorphone HCl (Dilaudid) 0.5 mg IV Q3H PRN PRN Reason: Pain , Severe (7-10) Ondansetron HCl (Zofran) 4 mg IV Q8H PRN PRN Reason: Nausea And Vomiting Oxycodone/Acetaminophen (Percocet 5/325) 1 tab PO Q6H PRN PRN Reason: Pain, Moderate (4-6) Last Admin: 09/19/18 04:47 Dose: 1 tab Documented by: Sodium Chloride (Sodium Chloride Flush Syringe 10 Ml) 10 ml IV BID CONNIE Last Admin: 09/19/18 09:28 Dose: 10 ml Documented by: Sodium Chloride (Sodium Chloride Flush Syringe 10 Ml) 10 ml IV PRN PRN PRN Reason: LINE FLUSH Zolpidem Tartrate (Ambien) 5 mg PO QHS PRN PRN Reason: Insomnia Review of Systems All systems: negative Constitutional: fatigue, weakness Genitourinary: vaginal bleeding, pelvic pain - Vital Signs Vital signs: Vital Signs Temp Pulse Resp BP Pulse Ox 97.9 F 78 18 121/56 100 09/18/18 15:47 09/18/18 15:47 09/18/18 15:47 09/18/18 15:47 09/18/18 15:47 Temp Pulse Resp BP Pulse Ox 98.3 F 72 18 114/67 100 09/19/18 13:12 09/19/18 13:16 09/19/18 13:12 09/19/18 13:12 09/19/18 13:16 - Physical Exam Breasts: Positive: deferred Cardiovascular: Regular rate Lungs: Positive: Clear to auscultation Abdomen: Positive: other (Central pelvic mass on exam) Results Result Diagrams: 09/19/18 04:37 09/18/18 15:54 Abnormal lab results 09/18/18 09/18/18 09/18/18 Range/Units 15:54 15:54 16:50 WBC (4.5-11.0) K/mm3 RBC 3.51 L (3.65-5.03) M/mm3 Hgb 5.8 L* (10.1-14.3) gm/dl Hct 20.7 L (30.3-42.9) % MCV 59 L (79-97) fl MCH 17 L (28-32) pg MCHC 28 L (30-34) % RDW 25.2 H (13.2-15.2) % Basophils % (Manual) 3.0 H (0.0-1.8) % Chloride 108.4 H (98-107) mmol/L BUN 6 L (7-17) mg/dL Creatinine 0.6 L (0.7-1.2) mg/dL Glucose 101 H (65-100) mg/dL Urine WBC (Auto) (0.0-6.0) /HPF Crossmatch See Detail 09/19/18 09/19/18 Range/Units 04:37 10:31 WBC 4.0 L (4.5-11.0) K/mm3 RBC 3.53 L (3.65-5.03) M/mm3 Hgb 6.3 L (10.1-14.3) gm/dl Hct 21.8 L (30.3-42.9) % MCV 62 L (79-97) fl MCH 18 L (28-32) pg MCHC 29 L (30-34) % RDW 28.2 H (13.2-15.2) % Basophils % (Manual) (0.0-1.8) % Chloride (98-107) mmol/L BUN (7-17) mg/dL Creatinine (0.7-1.2) mg/dL Glucose (65-100) mg/dL Urine WBC (Auto) 13.0 H (0.0-6.0) /HPF Crossmatch All other labs normal. Assessment and Plan - Patient Problems (1) Leiomyoma Current Visit: Yes Status: Acute Plan to address problem: Discussed potential treatment options with the patient to include myomectomy, uterine fibroid embolization, hysterectomy During this hospitalization the patient will complete her transfusion for anemia and follow-up as an outpatient for further treatment options (2) Symptomatic anemia Onset Date: 02/15/18 Current Visit: Yes Status: Acute (3) Chronic blood loss anemia Onset Date: 02/15/18 Current Visit: Yes Status: Chronic (4) Menorrhagia Current Visit: Yes Status: Chronic Qualifiers: Menorrahagia type: with regular cycle Qualified Code(s): N92.0 - Excessive and frequent menstruation with regular cycle
[2018-09-19 16:12] LABS: Hematocrit 26.2 % (30.3-42.9); Hemoglobin 7.8 gm/dl (10.1-14.3)
--- NOTE | 2018-09-19 17:09 | Discharge Summary ---
Providers - Providers Date of Admission: 09/18/18 18:04 Date of discharge: 09/19/18 Attending physician: CATE ARELLANO 09/19/18 02:21 Consult to Physician [CONS] Routine Comment: Consulting Provider: LIDIA RAMIREZ Physician Instructions: Reason For Exam: Fibroids 09/19/18 05:59 Consult to Physician [CONS] Routine Comment: Consulting Provider: JOANN PUENTE Physician Instructions: For possible Embolization as outpatien or inpatien Reason For Exam: Menorrhagia sec to Fibroids Primary care physician: STRUCTURAL DRAFTER Hospitalization Reason for admission: symptomatic anemia/menorrhagia Condition: Stable Pertinent studies: Pelvis ultrasound; fibroid uterus Procedures: 2 Units PRBC transfusion Hospital course: 37-year-old female patient with significant history of menorrhagia secondary to fibroid uterus multiple admissions with the blood transfusion was admitted through emergency room with the symptomatic anemia patient was admitted to transfuse 2 units of PRBC with improvement of her hemoglobin from 5.8 -7.8, Patient was also evaluated by [facility] and recommended outpatient follow-up for further evaluation and fibroid uterus for possible embolization or surgery, Patient was seen and evaluated by IR Dr. Pena who also feels that patient may need embolization, however he is not an emergency procedure discussed with the patient and advised to follow-up with him once she makes a decision for the procedure History patient is comfortable no new complaints no active bleeding Vital signs stable, Physical examination is unremarkable Hemodynamically and clinically stable at discharge Discharge diagnosis; --Symptomatic anemia; secondary to menorrhagia Received 2 units of PRBC transfusion, hemoglobin 7.8 today --History of menorrhagia; secondary to fibroid uterus Advised to follow with [facility] upon discharge --Moderate to large fibroid uterus; follow-up with [facility] For further evaluation of surgical procedure Follow up with IR /interventional radiologist for possible embolization If patient decides that procedure --Acute on chronic blood loss anemia; received 2 units transfusion Recommend iron supplements patient is stable at discharge Disposition: [place]-01 TO HOME OR SELFCARE Time spent for discharge: 32 min Core Measure Documentation - Palliative Care Palliative Care/ Comfort Measures: Not Applicable - Core Measures Any of the following diagnoses?: none Exam - Constitutional Vitals: Temp Pulse Resp BP Pulse Ox 98.1 F 62 18 119/68 99 09/19/18 14:15 09/19/18 14:15 09/19/18 14:15 09/19/18 14:15 09/19/18 13:46 General appearance: Present: no acute distress, well-nourished - EENT Eyes: Present: PERRL, EOM intact - Neck Neck: Present: supple, normal ROM - Respiratory Respiratory effort: normal Respiratory: bilateral: diminished, negative: rales, rhonchi, wheezing - Cardiovascular Rhythm: regular Heart Sounds: Present: S1 & S2 - Extremities Extremities: no ischemia, No edema - Abdominal General gastrointestinal: Present: soft, non-tender, non-distended, normal bowel sounds - Integumentary Integumentary: Present: clear, warm - Musculoskeletal Musculoskeletal: strength equal bilaterally, generalized weakness - Psychiatric Psychiatric: appropriate mood/affect, cooperative - Neurologic Neurologic: CNII-XII intact, moves all extremities Plan Activity: advance as tolerated Diet: regular Additional Instructions: If you have severe vaginal bleeding contact [facility] or go to emergency room. Advised to continue iron supplements, as before [ferrous sulfate ] Follow up with: ROCÍO DOZIER MD [Staff Physician] - 3-5 Days JOANN PENA MD [Staff Physician] - 6 Weeks LIDIA RAMIREZ MD [Staff Physician] - 7 Days Forms: Work/School Release Form
[2018-09-19 17:15] VITALS: BP 121/78
--- NOTE | 2018-09-19 20:16 | Ultrasound Report ---
PROCEDURE: US PELVIC COMPLETE TECHNIQUE: Real-time transabdominal sonography in multiple planes of the pelvis was performed. The p elvic structures were not optimally visualized. Transvaginal sonography was then performed to better evaluate the structures and/or abnormalities described below with image documentation. HISTORY: Uterine fibroids COMPARISONS: None . FINDINGS: UTERUS Size: 16.6 x 7.8 x 12 cm. Endometrial thickness: 26 mm. Orientation: anteverted. Cervix: Normal. Fibroids/masses: There are multiple uterine fibroids measuring up to 5.1 cm in diameter.. RIGHT Ovary: 5.7 x 2.7 x 3.8 cm. Appearance: Normal. Doppler images: Normal spectral waveforms and color flow images of the arterial inflow and venous out flow.. LEFT Ovary: 5.1 x 2.7 x 3.7 cm. Appearance: Normal. Doppler images: Normal spectral waveforms and color flow images of the arterial inflow and venous out flow.. Pelvic fluid: Minimal. IMPRESSION: There are multiple uterine fibroids measuring up to 5.1 cm in diameter.. There is endometrial hyperplasia. There is no endometrial fluid. The ovaries are unremarkable. There is minimal free pelvic fluid which is nonspecific.. This document is electronically signed by Hector Karimi MD., September 19 2018 08:13:35 PM ET
== END 2018-09-19 18:15 | disposition home or self-care (01) | DRG 760 ==
LOC: ED 15:05 → 3A 18:04
PROVIDERS: ADMIT Internal Medicine; ATTEND Internal Medicine
PROC: 30233N1 Transfusion of Nonautologous Red Blood Cells into Peripheral Vein, Percutaneous Approach (ICD-10-PCS; principal; 2018-09-18)
DX: D25.1 Intramural leiomyoma of uterus (principal); D62 Acute posthemorrhagic anemia; N92.0 Excessive and frequent menstruation with regular cycle; G43.909 Migraine, unspecified, not intractable, without status migrainosus; Z98.51 Tubal ligation status; Z79.899 Other long term (current) drug therapy
CPT/HCPCS: 36415; 76856; 80048; 81001; 81025; 85007; 85018; 85025; 85027; 86850; 86900; 86901; 86920; 96374; 99291; G0378; J7040; P9016

== ENCOUNTER 2018-09-22 03:28 | Emergency (ER) | payer OTHER ==
[2018-09-22 03:41] VITALS: BP 116/71
[2018-09-22] MEDS ORDERED: ASPIRIN PO ONE (03:55)
--- NOTE | 2018-09-22 04:40 | Emergency Department Report ---
ED ENT HPI - General Chief complaint: Dental/Oral Stated complaint: LIP SWOLLEN AND BLACK PAIN Time Seen by Provider: 09/22/18 03:53 Source: patient Mode of arrival: Ambulatory Limitations: No Limitations - History of Present Illness Initial comments: 37-year-old female comes in complaining lip pain and swelling. Patient reports she has been using Carmax which she now feels that making it worse. -: days(s) (1) Location: upper lip, lower lip Severity scale (0 -10): 8 Quality: burning, aching Consistency: intermittent Worsens with: medication (Carmax lip treatment) - Related Data Home Medications Medication Instructions Recorded Confirmed Last Taken Ferrous Sulfate [Iron Supplement 325 mg PO DAILY 08/26/14 09/19/18 02/13/18 325 Mg tab] Previous Rx's Medication Instructions Recorded Last Taken Type Acetaminophen [Acetaminophen TAB] 325 mg PO Q4H PRN #12 tablet 02/16/18 Unknown Rx Petrolatum,White [Petroleum Jelly] 212 gm TP QID PRN #113 jelly..g. 09/22/18 Unknown Rx Allergies Allergy/AdvReac Type Severity Reaction Status Date / Time No Known Allergies Allergy Verified 02/14/18 07:38 ED Dental HPI - General Chief complaint: Dental/Oral Stated complaint: LIP SWOLLEN AND BLACK PAIN Time Seen by Provider: 09/22/18 03:53 Source: patient Mode of arrival: Ambulatory Limitations: No Limitations - Related Data Home Medications Medication Instructions Recorded Confirmed Last Taken Ferrous Sulfate [Iron Supplement 325 mg PO DAILY 08/26/14 09/19/18 02/13/18 325 Mg tab] Previous Rx's Medication Instructions Recorded Last Taken Type Acetaminophen [Acetaminophen TAB] 325 mg PO Q4H PRN #12 tablet 02/16/18 Unknown Rx Petrolatum,White [Petroleum Jelly] 212 gm TP QID PRN #113 jelly..g. 09/22/18 Unknown Rx Allergies Allergy/AdvReac Type Severity Reaction Status Date / Time No Known Allergies Allergy Verified 02/14/18 07:38 ED Review of Systems ROS: Stated complaint: LIP SWOLLEN AND BLACK PAIN Other details as noted in HPI Comment: All other systems reviewed and negative ED Past Medical Hx - Past Medical History Previous Medical History?: Yes Hx Hypertension: No Hx Congestive Heart Failure: No Hx Diabetes: No Hx Renal Disease: No Hx Headaches / Migraines: Yes Hx Asthma: No Hx COPD: No Additional medical history: Anemia, History blood transfusions - Surgical History Past Surgical History?: Yes Additional Surgical History: csection x 2, Fibroid tumor removal, Tubal Ligation - Social History Smoking Status: Never Smoker Substance Use Type: None - Medications Home Medications: Home Medications Medication Instructions Recorded Confirmed Last Taken Type Ferrous Sulfate [Iron Supplement 325 mg PO DAILY 08/26/14 09/19/18 02/13/18 History 325 Mg tab] Acetaminophen [Acetaminophen TAB] 325 mg PO Q4H PRN #12 tablet 02/16/18 09/19/18 Unknown Rx Petrolatum,White [Petroleum Jelly] 212 gm TP QID PRN #113 jelly..g. 09/22/18 Unknown Rx ED Physical Exam - General Limitations: No Limitations General appearance: alert, in no apparent distress - Head Head exam: Present: atraumatic, normocephalic - Eye Eye exam: Present: normal appearance, EOMI - Expanded ENT Exam Expanded Mouth exam: Present: other (upper and lower lip dryness ) ED Course Vital Signs 09/22/18 03:38 Temperature 98 F Pulse Rate 75 Respiratory 16 Rate Blood Pressure 116/71 O2 Sat by Pulse 100 Oximetry ED Medical Decision Making - Medical Decision Making Patient has been evaluated by this provider in [facility]. Patient was given petroleum jelly to place on her lips and reports that it feels much better. Discussed the patient to discontinue her current lip treatment and to try using petroleum jelly or Aquaphor. Patient verbalizes understanding Critical care attestation.: If time is entered above; I have spent that time in minutes in the direct care of this critically ill patient, excluding procedure time. ED Disposition Clinical Impression: Lip dryness Disposition: DC-01 TO HOME OR SELFCARE Is pt being admited?: No Does the pt Need Aspirin: No Condition: Stable Additional Instructions: Please use petroleum jelly to your lips every 4-6 hours as needed for moisturizing. Prescriptions: Petrolatum,White [Petroleum Jelly] 212 gm TP QID PRN #113 jelly..g. PRN Reason: Pain , Severe (7-10) Referrals: ALEXANDRU OLIVA MD [Primary Care Provider] - 3-5 Days Forms: Work/School Release Form(ED)
== END 2018-09-22 04:41 | disposition home or self-care (01) ==
LOC: ED 03:28
DX: K13.0 Diseases of lips (principal); G43.909 Migraine, unspecified, not intractable, without status migrainosus; D21.9 Benign neoplasm of connective and other soft tissue, unspecified; Z98.51 Tubal ligation status
CPT/HCPCS: 99282

== ENCOUNTER 2019-06-10 05:14 | Emergency (ER) | payer SELFPAY ==
[2019-06-10 05:23] VITALS: BP 117/57
[2019-06-10] MEDS ORDERED: ACETAMINOPHEN 500 MG TAB PO ONE (06:17)
[2019-06-10] MEDS ORDERED: ONDANSETRON 4 MG ODT TAB PO ONE (06:17)
[2019-06-10 06:47] LABS: Mean Corpuscular HGB Conc 28 % (30-34); Platelet Count 171 K/mm3 (140-440); Red Blood Count 3.89 M/mm3 (3.65-5.03)
[2019-06-10 06:50] LABS: Hematocrit 24.2 % (30.3-42.9); Hemoglobin 6.8 gm/dl (10.1-14.3); Mean Corpuscular Volume 62 fl (79-97); Red Cell Distribution Width 21.2 % (13.2-15.2)
[2019-06-10 07:07] LABS: Alanine Aminotransferase 8 units/L (7-56); Albumin 3.7 g/dL (3.9-5); BUN/Creatinine Ratio 11; Blood Urea Nitrogen 8 mg/dL (7-17); Calcium 8.5 mg/dL (8.4-10.2)
[2019-06-10 07:08] LABS: Hemolysis Index 3
--- NOTE | 2019-06-10 08:07 | Emergency Department Report ---
ED Abdominal Pain HPI - General Chief Complaint: Abdominal Pain Stated Complaint: ABD PAIN/HEADACHE Time Seen by Provider: 06/10/19 07:34 Source: patient Mode of arrival: Ambulatory Limitations: No Limitations - History of Present Illness MD Complaint: abdominal pain Severity scale (0 -10): 7 - Related Data Home Medications Medication Instructions Recorded Confirmed Last Taken Ferrous Sulfate [Iron Supplement 325 mg PO DAILY 08/26/14 09/19/18 02/13/18 325 Mg tab] Previous Rx's Medication Instructions Recorded Last Taken Type Acetaminophen [Acetaminophen TAB] 325 mg PO Q4H PRN #12 tablet 02/16/18 Unknown Rx Petrolatum,White [Petroleum Jelly] 212 gm TP QID PRN #113 jelly..g. 09/22/18 Unknown Rx Butalb/Acetaminophen/Caffeine 1 cap PO Q6HR PRN #10 cap 02/12/19 Unknown Rx [Fioricet 50-300-40 mg CAP] Promethazine [Phenergan] 25 mg PO Q6HR PRN #10 tab 02/12/19 Unknown Rx Allergies Allergy/AdvReac Type Severity Reaction Status Date / Time No Known Allergies Allergy Verified 02/12/19 12:27 ED Review of Systems ROS: Stated complaint: ABD PAIN/HEADACHE Other details as noted in HPI ED Past Medical Hx - Past Medical History Previous Medical History?: Yes Hx Hypertension: No Hx Congestive Heart Failure: No Hx Diabetes: No Hx Renal Disease: No Hx Headaches / Migraines: Yes Hx Asthma: No Hx COPD: No Additional medical history: Anemia, History blood transfusions - Surgical History Past Surgical History?: Yes Additional Surgical History: csection x 2, Fibroid tumor removal, Tubal Ligation - Social History Smoking Status: Never Smoker Substance Use Type: None - Medications Home Medications: Home Medications Medication Instructions Recorded Confirmed Last Taken Type Ferrous Sulfate [Iron Supplement 325 mg PO DAILY 08/26/14 09/19/18 02/13/18 History 325 Mg tab] Acetaminophen [Acetaminophen TAB] 325 mg PO Q4H PRN #12 tablet 02/16/18 09/19/18 Unknown Rx Petrolatum,White [Petroleum Jelly] 212 gm TP QID PRN #113 jelly..g. 09/22/18 Unknown Rx Butalb/Acetaminophen/Caffeine 1 cap PO Q6HR PRN #10 cap 02/12/19 Unknown Rx [Fioricet 50-300-40 mg CAP] Promethazine [Phenergan] 25 mg PO Q6HR PRN #10 tab 02/12/19 Unknown Rx ED Physical Exam - General Limitations: No Limitations ED Course Vital Signs 06/10/19 06/10/19 05:18 06:24 Temperature 98.8 F Pulse Rate 83 Respiratory 18 16 Rate Blood Pressure 117/57 O2 Sat by Pulse 100 Oximetry ED Medical Decision Making - Lab Data Result diagrams: 06/10/19 06:08 06/10/19 06:08 Critical care attestation.: If time is entered above; I have spent that time in minutes in the direct care of this critically ill patient, excluding procedure time. ED Disposition Condition: Stable Instructions: Abdominal Pain (ED)
[2019-06-10 09:00] LABS: HCG Qualitative,Urine Negative (Negative)
[2019-06-10 09:01] LABS: Bilirubin,Urine NEG (Negative); Blood,Urine NEG (Negative); Color,Urine Yellow (Yellow); Mucus,Urine FEW /HPF; Protein,Urine <15 mg/dL mg/dL (Negative); Urobilinogen,Urine < 2.0 mg/dL (<2.0)
== END 2019-06-10 09:05 | disposition left against medical advice (07) ==
LOC: ED 05:14
DX: G43.909 Migraine, unspecified, not intractable, without status migrainosus (principal); R10.30 Lower abdominal pain, unspecified; Z98.51 Tubal ligation status; Z79.899 Other long term (current) drug therapy
CPT/HCPCS: 36415; 80053; 81001; 81025; 83690; 85027; Q0162

== ENCOUNTER 2019-09-04 18:28 | Inpatient (IN) | payer OTHER ==
--- NOTE | 2019-09-04 20:00 | Event Note ---
ED Screening Note ED Screening Note: SOB and CP began two days occasional sharp pain no fever no cough no n/v/d no leg swelling PMHx anemia, takes iron supplement no recent travel no recent surgery no hormone use This initial assessment/diagnostic orders/clinical plan/treatment(s) is/are subject to change based on patients health status, clinical progression and re- assessment by fellow clinical providers in the ED. Further treatment and workup at subsequent clinical providers discretion. Patient/guardian urged not to elope from the ED as their condition may be serious if not clinically assessed and managed. Initial orders include: CP protocol
[2019-09-04 20:52] LABS: Mean Corpuscular HGB Conc 29 % (30-34); Platelet Count 336 K/mm3 (140-440); Red Blood Count 3.84 M/mm3 (3.65-5.03)
[2019-09-04 21:04] LABS: Hematocrit 23.4 % (30.3-42.9); Hemoglobin 6.7 gm/dl (10.1-14.3)
[2019-09-04 21:05] LABS: Mean Corpuscular Volume 61 fl (79-97)
[2019-09-04 21:06] LABS: Red Cell Distribution Width 23.9 % (13.2-15.2)
[2019-09-04 21:17] LABS: Alanine Aminotransferase 11 units/L (7-56); Albumin 4.1 g/dL (3.9-5); BUN/Creatinine Ratio 9; Blood Urea Nitrogen 6 mg/dL (7-17); Hemolysis Index 1
--- NOTE | 2019-09-04 22:07 | XRay Report ---
CHEST 2 VIEWS INDICATION / CLINICAL INFORMATION: CP. COMPARISON: 07/17/2018 FINDINGS: SUPPORT DEVICES: None. HEART / MEDIASTINUM: No significant abnormality. LUNGS / PLEURA: No significant pulmonary or pleural abnormality. No pneumothorax. ADDITIONAL FINDINGS: No significant additional findings. IMPRESSION: 1. No acute findings. Signer Name: Leonidas Lundberg MD Signed: 09/04/2019 10:03 PM Workstation Name: [id number]
[2019-09-04 22:12] LABS: Anisocytosis 1+; Basophils % (Manual) 0 % (0.0-1.8); Hypochromasia 1+; Platelet Estimate Consistent w Auto; Total Cells Counted 100
[2019-09-04 22:58] LABS: Bacteria,Urine 4+ /HPF (Negative); Bilirubin,Urine NEG (Negative); Blood,Urine LG (Negative); Color,Urine Yellow (Yellow); Mucus,Urine 1+ /HPF; Protein,Urine <15 mg/dL mg/dL (Negative); Urobilinogen,Urine < 2.0 mg/dL (<2.0)
[2019-09-04 22:59] LABS: RBC,Urine > 182.0 /HPF (0.0-6.0); WBC,Urine > 182.0 /HPF (0.0-6.0)
--- NOTE | 2019-09-05 00:47 | Emergency Department Report ---
HPI - General Chief Complaint: Chest Pain Time Seen by Provider: 09/04/19 19:58 - HPI HPI: Room 24 The patient is a 38-year-old female present with a chief complaint of chest pain and shortness of breath. The patient states for the past 2 days she has had intermittent chest pain shortness of breath. Patient describes her chest pain is sharp in nature and substernal in origin. Patient admits to nausea but denies vomiting. Patient admits to occasional diaphoresis with her chest pain. The patient states she is never had a stress test or cardiac catheterization. Patient has a history of anemia possibly secondary to menorrhagia. Patient has uterine fibroids and states she began her cycle 3 days ago going through approximately 24 pads daily. ED Past Medical Hx - Past Medical History Previous Medical History?: Yes Hx Headaches / Migraines: Yes Additional medical history: Anemia, History blood transfusions - Surgical History Past Surgical History?: Yes Additional Surgical History: csection x 2, Fibroid tumor removal, Tubal Ligation - Family History Family history: no significant - Social History Smoking Status: Never Smoker Substance Use Type: None (Denies illicit drug use) - Medications Home Medications: Home Medications Medication Instructions Recorded Confirmed Last Taken Type Ferrous Sulfate [Iron Supplement 325 mg PO DAILY 08/26/14 09/19/18 02/13/18 History 325 Mg tab] Acetaminophen [Acetaminophen TAB] 325 mg PO Q4H PRN #12 tablet 02/16/18 09/19/18 Unknown Rx Petrolatum,White [Petroleum Jelly] 212 gm TP QID PRN #113 jelly..g. 09/22/18 Unknown Rx Butalb/Acetaminophen/Caffeine 1 cap PO Q6HR PRN #10 cap 02/12/19 Unknown Rx [Fioricet 50-300-40 mg CAP] Promethazine [Phenergan] 25 mg PO Q6HR PRN #10 tab 02/12/19 Unknown Rx ED Review of Systems ROS: Stated complaint: SOB/CP Other details as noted in HPI Constitutional: diaphoresis Eyes: denies: eye pain ENT: denies: throat pain Respiratory: shortness of breath Cardiovascular: chest pain Endocrine: no symptoms reported Gastrointestinal: nausea, vomiting Genitourinary: denies: dysuria Musculoskeletal: denies: back pain Neurological: headache Physical Exam - Physical Exam Vital Signs: Vital Signs 09/04/19 09/05/1920 20:01 00:32 00:37 Temperature 98.1 F Pulse Rate 89 71 Pulse Rate [ 71 Lying] Pulse Rate [ 85 Sitting] Pulse Rate [ 88 Standing] Respiratory 18 9 L Rate Blood Pressure 148/77 Blood Pressure 117/81 [Lying] Blood Pressure 128/77 [Sitting] Blood Pressure 124/75 [Standing] Blood Pressure 117/81 [right arm] O2 Sat by Pulse 99 100 Oximetry Physical Exam: GENERAL: The patient is well-developed well-nourished female lying on stretcher not appearing to be in acute distress. [] HEENT: Normocephalic. Atraumatic. Extraocular motions are intact. Patient has moist mucous membranes. NECK: Supple. Trachea midline CHEST/LUNGS: Clear to auscultation. There is no respiratory distress noted. HEART/CARDIOVASCULAR: Regular. There is no tachycardia. There is no gallop rub or murmur. ABDOMEN: Abdomen is soft, nontender. Patient has normal bowel sounds. There is no abdominal distention. SKIN: There is no rash. There is no edema. There is no diaphoresis. NEURO: The patient is awake, alert, and oriented. The patient is cooperative. The patient has normal speech MUSCULOSKELETAL: There is no evidence of acute injury. ED Course Vital Signs 09/04/19 09/05/19 09/05/19 20:01 00:32 00:37 Temperature 98.1 F Pulse Rate 89 71 Pulse Rate [ 71 Lying] Pulse Rate [ 85 Sitting] Pulse Rate [ 88 Standing] Respiratory 18 9 L Rate Blood Pressure 148/77 Blood Pressure 117/81 [Lying] Blood Pressure 128/77 [Sitting] Blood Pressure 124/75 [Standing] Blood Pressure 117/81 [right arm] O2 Sat by Pulse 99 100 Oximetry ED Medical Decision Making - Lab Data Result diagrams: 09/04/19 20:38 09/04/19 20:38 Laboratory Tests 09/04/19 09/04/19 09/04/19 17:20 20:38 20:38 WBC 5.0 RBC 3.84 Hgb 6.7 L Hct 23.4 L MCV 61 L MCH 18 L MCHC 29 L RDW 23.9 H Plt Count 336 Add Manual Diff Complete Total Counted 100 Seg Neutrophils % Service Girl Seg Neuts % (Manual) 66.0 Band Neutrophils % 0 Lymphocytes % (Manual) 27.0 Reactive Lymphs % (Man) 0 Monocytes % (Manual) 3.0 Eosinophils % (Manual) 4.0 Basophils % (Manual) 0 Metamyelocytes % 0 Myelocytes % 0 Promyelocytes % 0 Blast Cells % 0 Nucleated RBC % Not Reportable Seg Neutrophils # Man 3.3 Band Neutrophils # 0.0 Lymphocytes # (Manual) 1.4 Abs React Lymphs (Man) 0.0 Monocytes # (Manual) 0.2 Eosinophils # (Manual) 0.2 Basophils # (Manual) 0.0 Metamyelocytes # 0.0 Myelocytes # 0.0 Promyelocytes # 0.0 Blast Cells # 0.0 WBC Morphology Not Reportable Hypersegmented Neuts Not Reportable Hyposegmented Neuts Not Reportable Hypogranular Neuts Not Reportable Smudge Cells Not Reportable Toxic Granulation Not Reportable Toxic Vacuolation Not Reportable Dohle Bodies Not Reportable Pelger-Huet Anomaly Not Reportable Thais Rods Not Reportable Platelet Estimate Consistent w auto Clumped Platelets Not Reportable Plt Clumps, EDTA Not Reportable Large Platelets Not Reportable Giant Platelets Not Reportable Platelet Satelliting Not Reportable Plt Morphology Comment Not Reportable RBC Morphology Not Reportable Dimorphic RBCs Not Reportable Polychromasia Not Reportable Hypochromasia 1+ Poikilocytosis Not Reportable Anisocytosis 1+ Microcytosis 1+ Macrocytosis Not Reportable Spherocytes Not Reportable Pappenheimer Bodies Not Reportable Sickle Cells Not Reportable Target Cells Not Reportable Tear Drop Cells Not Reportable Ovalocytes Not Reportable Helmet Cells Not Reportable [place] Bodies Not Reportable [place] Rings Not Reportable Catherine Cells Not Reportable Bite Cells Not Reportable Crenated Cell Not Reportable Elliptocytes Not Reportable Acanthocytes (Spur) Not Reportable Rouleaux Not Reportable Hemoglobin C Crystals Not Reportable Schistocytes Not Reportable Malaria parasites Not Reportable Kana Bodies Not Reportable Hem Pathologist Commnt No Sodium 141 Potassium 3.9 Chloride 106.7 Carbon Dioxide 23 Anion Gap 15 BUN 6 L Creatinine 0.7 Estimated GFR > 60 BUN/Creatinine Ratio 9 Glucose 92 Calcium 9.0 Total Bilirubin < 0.20 AST 18 ALT 11 Alkaline Phosphatase 43 Troponin T < 0.010 < 0.010 Total Protein 6.9 Albumin 4.1 Albumin/Globulin Ratio 1.5 HCG, Qual Urine Color Urine Turbidity Urine pH Ur Specific [place] Urine Protein Urine Glucose (UA) Urine Ketones Urine Blood Urine Nitrite Urine Bilirubin Urine Urobilinogen Ur Leukocyte Esterase Urine WBC (Auto) Urine RBC (Auto) U Epithel Cells (Auto) Urine Bacteria (Auto) Urine Mucus Blood Type Antibody Screen 09/04/19 09/04/19 09/04/19 20:38 20:41 22:20 WBC RBC Hgb Hct MCV MCH MCHC RDW Plt Count Add Manual Diff Total Counted Seg Neutrophils % Seg Neuts % (Manual) Band Neutrophils % Lymphocytes % (Manual) Reactive Lymphs % (Man) Monocytes % (Manual) Eosinophils % (Manual) Basophils % (Manual) Metamyelocytes % Myelocytes % Promyelocytes % Blast Cells % Nucleated RBC % Seg Neutrophils # Man Band Neutrophils # Lymphocytes # (Manual) Abs React Lymphs (Man) Monocytes # (Manual) Eosinophils # (Manual) Basophils # (Manual) Metamyelocytes # Myelocytes # Promyelocytes # Blast Cells # WBC Morphology Hypersegmented Neuts Hyposegmented Neuts Hypogranular Neuts Smudge Cells Toxic Granulation Toxic Vacuolation Dohle Bodies Pelger-Huet Anomaly Thais Rods Platelet Estimate Clumped Platelets Plt Clumps, EDTA Large Platelets Giant Platelets Platelet Satelliting Plt Morphology Comment RBC Morphology Dimorphic RBCs Polychromasia Hypochromasia Poikilocytosis Anisocytosis Microcytosis Macrocytosis Spherocytes Pappenheimer Bodies Sickle Cells Target Cells Tear Drop Cells Ovalocytes Helmet Cells [place] Bodies [place] Rings [place] Cells Bite Cells Crenated Cell Elliptocytes Acanthocytes (Spur) Rouleaux Hemoglobin C Crystals Schistocytes Malaria parasites Kana Bodies Hem Pathologist Commnt Sodium Potassium Chloride Carbon Dioxide Anion Gap BUN Creatinine Estimated GFR BUN/Creatinine Ratio Glucose Calcium Total Bilirubin AST ALT Alkaline Phosphatase Troponin T Total Protein Albumin Albumin/Globulin Ratio HCG, Qual Negative Urine Color Yellow Urine Turbidity Slightly-cloudy Urine pH 6.0 Ur Specific [place] 1.011 Urine Protein <15 mg/dl Urine Glucose (UA) Neg Urine Ketones Neg Urine Blood Lg Urine Nitrite Neg Urine Bilirubin Neg Urine Urobilinogen < 2.0 Ur Leukocyte Esterase Tr Urine WBC (Auto) > 182.0 H Urine RBC (Auto) > 182.0 U Epithel Cells (Auto) 9.0 Urine Bacteria (Auto) 4+ Urine Mucus 1+ Blood Type O POSITIVE Antibody Screen Negative - EKG Data -: EKG Interpreted by Ok EKG shows normal: sinus rhythm Rate: normal - EKG Data When compared to previous EKG there are: previous EKG unavailable Interpretation: other (No ischemic changes seen) - Radiology Data Radiology results: report reviewed (Chest x-ray), image reviewed (Chest x-ray) interpreted by me: Chest x-ray-no focal infiltrates, no pneumothorax Chest x-ray (read by radiologist)-no acute findings - Medical Decision Making Patient's H&H is unchanged from previous visit May 2019, patient is not orthostatic; subsequently I am not convinced that blood transfusion is warranted at this time - Differential Diagnosis ACS, pericarditis, GERD, symptomatic anemia Critical care attestation.: If time is entered above; I have spent that time in minutes in the direct care of this critically ill patient, excluding procedure time. ED Disposition Clinical Impression: Chest pain, Chronic anemia Disposition: OP ADMIT IP TO THIS HOSP Is pt being admited?: Yes Does the pt Need Aspirin: Yes Condition: Fair Instructions: Chest Pain (ED) Referrals: PRIMARY CARE, [Primary Care Provider] - 3-5 Days Time of Disposition: 00:47 (Hospitalist paged (Dr Richards))
[2019-09-05] MEDS ORDERED: ASPIRIN 325 MG TAB PO ONE (00:48)
[2019-09-05] MEDS ORDERED: NITROGLYCERIN 2% OINT 1 GM TP ONE (00:48)
--- NOTE | 2019-09-05 01:09 | History and Physical Report ---
History of Present Illness Date of examination: 09/05/19 Date of admission: 09/05/19 Chief complaint: Chest pain, shortness of breath History of present illness: Patient is a 38-year-old female with a medical history of uterine fibroids and anemia who presents to ER with complaints of shortness of breath and chest pain x2 days. Patient states she was at work when she describes a sudden onset of a sharp midsternal chest pain which she rates 10/10, without radiation and unaccompanied by nausea or vomiting. Patient states worsening symptoms today, unrelieved by rest but presenting with dizziness and shortness of breath. Pt denies fever, chills, palpitations, syncope, or recent ill contacts. Patient found to have symptomatic anemia with a hemoglobin of 6.7. She states that she is currently on her cycle which usually lasts more than 7 days. Patient also also reports taking iron supplements 3 times a day as prescribed but she has been out of her medications x6 months and just started taking [id number] iron tablets last week. Patient admitted for medical stabilization and initiated on chest protocol as well as PRBC transfusion. Past History Past Medical History: other (As noted in HPI) Past Surgical History: , Other (Uterine fibroids x2,. ) Social history: lives with family Family history: CAD, cancer, diabetes Medications and Allergies Allergies Allergy/AdvReac Type Severity Reaction Status Date / Time No Known Allergies Allergy Verified 02/12/19 12:27 Home Medications Medication Instructions Recorded Confirmed Last Taken Type Ferrous Sulfate [Iron Supplement 325 mg PO DAILY 08/26/14 09/19/18 02/13/18 History 325 Mg tab] Review of Systems All systems: negative Cardiovascular: chest pain, shortness of breath Genitourinary Female: menorrhagia Menstruation: currently menstrual, menses 8 or > days Exam - Physical Exam Narrative exam: - Physical Exam Narrative exam: General appearance: Present: No distress noted - EENT Eyes: Present: PERRL ENT: hearing intact, clear oral mucosa - Neck Neck: Present: supple, normal ROM - Respiratory Respiratory effort: normal Respiratory: bilateral: Clear to auscultation - Cardiovascular Heart Sounds: Present: S1 & S2. Absent: rub, click - Extremities Extremities: pulses symmetrical, No edema Peripheral Pulses: within normal limits - Abdominal General gastrointestinal: Present: , non-distended, normal bowel sounds genitourinary: Present: normal - Integumentary Integumentary: Present: clear, warm, dry - Musculoskeletal Musculoskeletal: gait normal, strength equal bilaterally - Psychiatric Psychiatric: appropriate mood/affect, intact judgment & insight - Neurologic Neurologic: CNII-XII intact, moves all extremities - Constitutional Vitals: Temp Pulse Resp BP Pulse Ox 98.1 F 69 9 L 124/75 100 09/04/19 20:01 09/05/19 01:02 09/05/19 00:32 09/05/19 01:02 09/05/19 00:32 GAMA score - Gama Score Age > 65: (0) No Aspirin use within the Past 7 Days: (0) No 3 or more CAD Risk Factors: (0) No 2 or more Angina events in past 24 hrs: (0) No Known CAD with more than 50% Stenosis: (0) No Elevated Cardiac Markers: (0) No ST Deviation Greater than 0.5mm: (0) No GAMA Score: 0 Results - Labs CBC & Chem 7: 09/04/19 20:38 09/04/19 20:38 Labs: Laboratory Last Values WBC 5.0 K/mm3 (4.5-11.0) 09/04/19 20:38 RBC 3.84 M/mm3 (3.65-5.03) 09/04/19 20:38 Hgb 6.7 gm/dl (10.1-14.3) L 09/04/19 20:38 Hct 23.4 % (30.3-42.9) L 09/04/19 20:38 MCV 61 fl (79-97) L 09/04/19 20:38 MCH 18 pg (28-32) L 09/04/19 20:38 MCHC 29 % (30-34) L 09/04/19 20:38 RDW 23.9 % (13.2-15.2) H 09/04/19 20:38 Plt Count 336 K/mm3 (140-440) 09/04/19 20:38 Add Manual Diff Complete 09/04/19 20:38 Total Counted 100 09/04/19 20:38 Seg Neutrophils % Assembly Adjuster 09/04/19 20:38 Seg Neuts % (Manual) 66.0 % (40.0-70.0) 09/04/19 20:38 Band Neutrophils % 0 % 09/04/19 20:38 Lymphocytes % (Manual) 27.0 % (13.4-35.0) 09/04/19 20:38 Reactive Lymphs % (Man) 0 % 09/04/19 20:38 Monocytes % (Manual) 3.0 % (0.0-7.3) 09/04/19 20:38 Eosinophils % (Manual) 4.0 % (0.0-4.3) 09/04/19 20:38 Basophils % (Manual) 0 % (0.0-1.8) 09/04/19 20:38 Metamyelocytes % 0 % 09/04/19 20:38 Myelocytes % 0 % 09/04/19 20:38 Promyelocytes % 0 % 09/04/19 20:38 Blast Cells % 0 % 09/04/19 20:38 Nucleated RBC % Not Reportable 09/04/19 20:38 Seg Neutrophils # Man 3.3 K/mm3 (1.8-7.7) 09/04/19 20:38 Band Neutrophils # 0.0 K/mm3 09/04/19 20:38 Lymphocytes # (Manual) 1.4 K/mm3 (1.2-5.4) 09/04/19 20:38 Abs React Lymphs (Man) 0.0 K/mm3 09/04/19 20:38 Monocytes # (Manual) 0.2 K/mm3 (0.0-0.8) 09/04/19 20:38 Eosinophils # (Manual) 0.2 K/mm3 (0.0-0.4) 09/04/19 20:38 Basophils # (Manual) 0.0 K/mm3 (0.0-0.1) 09/04/19 20:38 Metamyelocytes # 0.0 K/mm3 09/04/19 20:38 Myelocytes # 0.0 K/mm3 09/04/19 20:38 Promyelocytes # 0.0 K/mm3 09/04/19 20:38 Blast Cells # 0.0 K/mm3 09/04/19 20:38 WBC Morphology Not Reportable 09/04/19 20:38 Hypersegmented Neuts Not Reportable 09/04/19 20:38 Hyposegmented Neuts Not Reportable 09/04/19 20:38 Hypogranular Neuts Not Reportable 09/04/19 20:38 Smudge Cells Not Reportable 09/04/19 20:38 Toxic Granulation Not Reportable 09/04/19 20:38 Toxic Vacuolation Not Reportable 09/04/19 20:38 Dohle Bodies Not Reportable 09/04/19 20:38 Pelger-Huet Anomaly Not Reportable 09/04/19 20:38 Thais Rods Not Reportable 09/04/19 20:38 Platelet Estimate Consistent w auto 09/04/19 20:38 Clumped Platelets Not Reportable 09/04/19 20:38 Plt Clumps, EDTA Not Reportable 09/04/19 20:38 Large Platelets Not Reportable 09/04/19 20:38 Giant Platelets Not Reportable 09/04/19 20:38 Platelet Satelliting Not Reportable 09/04/19 20:38 Plt Morphology Comment Not Reportable 09/04/19 20:38 RBC Morphology Not Reportable 09/04/19 20:38 Dimorphic RBCs Not Reportable 09/04/19 20:38 Polychromasia Not Reportable 09/04/19 20:38 Hypochromasia 1+ 09/04/19 20:38 Poikilocytosis Not Reportable 09/04/19 20:38 Anisocytosis 1+ 09/04/19 20:38 Microcytosis 1+ 09/04/19 20:38 Macrocytosis Not Reportable 09/04/19 20:38 Spherocytes Not Reportable 09/04/19 20:38 Pappenheimer Bodies Not Reportable 09/04/19 20:38 Sickle Cells Not Reportable 09/04/19 20:38 Target Cells Not Reportable 09/04/19 20:38 Tear Drop Cells Not Reportable 09/04/19 20:38 Ovalocytes Not Reportable 09/04/19 20:38 Helmet Cells Not Reportable 09/04/19 20:38 [place] Bodies Not Reportable 09/04/19 20:38 [place] Rings Not Reportable 09/04/19 20:38 Catherine Cells Not Reportable 09/04/19 20:38 Bite Cells Not Reportable 09/04/19 20:38 Crenated Cell Not Reportable 09/04/19 20:38 Elliptocytes Not Reportable 09/04/19 20:38 Acanthocytes (Spur) Not Reportable 09/04/19 20:38 Rouleaux Not Reportable 09/04/19 20:38 Hemoglobin C Crystals Not Reportable 09/04/19 20:38 Schistocytes Not Reportable 09/04/19 20:38 Malaria parasites Not Reportable 09/04/19 20:38 Kana Bodies Not Reportable 09/04/19 20:38 Hem Pathologist Commnt No 09/04/19 20:38 Sodium 141 mmol/L (137-145) 09/04/19 20:38 Potassium 3.9 mmol/L (3.6-5.0) 09/04/19 20:38 Chloride 106.7 mmol/L (98-107) 09/04/19 20:38 Carbon Dioxide 23 mmol/L (22-30) 09/04/19 20:38 Anion Gap 15 mmol/L 09/04/19 20:38 BUN 6 mg/dL (7-17) L 09/04/19 20:38 Creatinine 0.7 mg/dL (0.7-1.2) 09/04/19 20:38 Estimated GFR > 60 ml/min 09/04/19 20:38 BUN/Creatinine Ratio 9 % 09/04/19 20:38 Glucose 92 mg/dL (65-100) 09/04/19 20:38 Calcium 9.0 mg/dL (8.4-10.2) 09/04/19 20:38 Total Bilirubin < 0.20 mg/dL (0.1-1.2) 09/04/19 20:38 AST 18 units/L (5-40) 09/04/19 20:38 ALT 11 units/L (7-56) 09/04/19 20:38 Alkaline Phosphatase 43 units/L (35-129) 09/04/19 20:38 Troponin T < 0.010 ng/mL (0.00-0.029) 09/04/19 20:38 Total Protein 6.9 g/dL (6.3-8.2) 09/04/19 20:38 Albumin 4.1 g/dL (3.9-5) 09/04/19 20:38 Albumin/Globulin Ratio 1.5 % 09/04/19 20:38 HCG, Qual Negative (Negative) 09/04/19 20:38 Urine Color Yellow (Yellow) 09/04/19 22:20 Urine Turbidity Slightly-cloudy (Clear) 09/04/19: Urine pH 6.0 (5.0-7.0) 09/04/19 22: Ur Specific [place] 1.011 (1.003-1.030) 09/04/19: Urine Protein <15 mg/dl mg/dL (Negative) 09/04/19 22: Urine Glucose (UA) Neg mg/dL (Negative) 09/04/19: Urine Ketones Neg mg/dL (Negative) 09/04/19: Urine Blood Lg (Negative) 09/04/19 22: Urine Nitrite Neg (Negative) 09/04/19 22: Urine Bilirubin Neg (Negative) 09/04/19: Urine Urobilinogen < 2.0 mg/dL (<2.0) 09/04/19: Ur Leukocyte Esterase Tr (Negative) 09/04/19: Urine WBC (Auto) > 182.0 /HPF (0.0-6.0) H 09/04/19: Urine RBC (Auto) > 182.0 /HPF (0.0-6.0) 09/04/19: U Epithel Cells (Auto) 9.0 /HPF (0-13.0) 09/04/19: Urine Bacteria (Auto) 4+ /HPF (Negative) 09/04/19: Urine Mucus 1+ /HPF 09/04/19 22: Blood Type O POSITIVE 09/04/19 20:41 Antibody Screen Negative 09/04/19 20:41 Assessment and Plan Assessment and plan: Patient is a 38-year-old female with a medical history of uterine fibroids and anemia who presents to ER with complaints of shortness of breath and chest pain x2 days. Anemia -r/t chronic blood loss from menorrhagia -moderate anemia -Hb: 6.8g/dl -1 unit PRBC ordered Menorrhagia -hx of uterine fibroids -pt has referral for hysterectomy Atypical chest pain, need to rule out ACS - monitor with serial CE and EKG - will place on Aspirin, statin - as needed SL NTG and iv morphin for pain - Monitor BP, -Cardiology consult, patient had normal stress test 10/2016 DVT prophylaxis -SCDs bilateral extremities -Patient ambulatory Advance Directives: No VTE prophylaxis?: Mechanical Reason for no VTE Prophylaxis: Bleeding Plan of care discussed with patient/family: Yes
[2019-09-05] MEDS ORDERED: MORPHINE 2 MG/1 ML INJ IV PRN (01:39)
[2019-09-05] MEDS ORDERED: ONDANSETRON 4 MG/2 ML INJ IV PRN (01:39)
[2019-09-05] MEDS ORDERED: NITROGLYCERIN 0.4 MG TAB SUBL SL PRN (01:39)
[2019-09-05] MEDS ORDERED: ACETAMINOPHEN 325 MG TAB PO PRN (01:39)
[2019-09-05] MEDS ORDERED: SODIUM CHLORIDE 0.9% 500 ML 500 ML IV ONE ×6 (01:45→07:23)
[2019-09-05] MEDS ORDERED: REGADENOSON 0.4 MG/5 ML INJ IV ONE (07:05)
[2019-09-05] MEDS ORDERED: ASPIRIN EC 325 MG TAB PO SCH (10:00)
[2019-09-05] MEDS ORDERED: PANTOPRAZOLE 40 MG INJ IV SCH (10:00)
--- NOTE | 2019-09-05 10:14 | Consultation ---
History of Present Illness Consult date: 09/05/19 Requesting physician: PAULO HERNANDEZ Consult reason: chest pain History of present illness: Pt is a 38 y.o. female with a past medical hx of anemia and uterine fibroids (s/p myomectomy). She is previously unknown to our practice. Pt presented with c/o SOB and CP x 2 days. She describes her CP as a sharp mid-sternal pain w ithout radiation. Pt denies accompanying sx. Trop negative x 3. ECG shows NSR with no evidence of acute ischemic changes. CXR shows no acute findings. Of note, pt has symptomatic anemia with H/H of 6.7/23. She reports taking iron TID for a hx of anemia 2/2 heavy menstrual cycle. No transfusions since admission. Past History Past Medical History: anemia, other (uterine fibroids) Past Surgical History: , Other (uterine fibroid removal x2) Social history: lives with family Family history: CAD Medications and Allergies Allergies Allergy/AdvReac Type Severity Reaction Status Date / Time No Known Allergies Allergy Verified 02/12/19 12:27 Home Medications Medication Instructions Recorded Confirmed Last Taken Type Ferrous Sulfate [Iron Supplement 65 mg PO TID 08/26/14 09/05/19 02/13/18 History 325 Mg tab] Active Meds: Active Medications Acetaminophen (Tylenol) 650 mg PO Q4H PRN PRN Reason: Pain MILD(1-3)/Fever >100.5/TRUJILLO Atorvastatin Calcium (Lipitor) 40 mg PO QHS CONNIE Morphine Sulfate (Morphine) 2 mg IV Q4H PRN PRN Reason: Pain, Moderate (4-6) Nitroglycerin (Nitrostat) 0.4 mg SL .Q5MIN PRN PRN Reason: Chest Pain Ondansetron HCl (Zofran) 4 mg IV Q8H PRN PRN Reason: Nausea And Vomiting Pantoprazole Sodium (Protonix) 40 mg IV BID CONNIE Review of Systems Constitutional: no weight loss, no weight gain, no fever, no chills, no sweats Ears, nose, mouth and throat: no ear pain, no nose pain, no nasal congestion, no mouth pain, no dysphagia Cardiovascular: chest pain, lightheadedness, shortness of breath, dyspnea on exertion, no orthopnea, no palpitations, no rapid/irregular heart beat, no edema, no syncope Respiratory: shortness of breath, dyspnea on exertion, no cough Gastrointestinal: no abdominal pain, no nausea, no vomiting, no diarrhea, no constipation Genitourinary Female: no flank pain, no dysuria Menstruation: currently menstrual, period heavy Musculoskeletal: no muscle weakness, no muscle cramps Integumentary: no rash, no wounds Neurological: no head injury, no paralysis, no weakness, no parathesias, no numbness, no tingling, no seizures, no syncope, no vertigo, no headaches Endocrine: no cold intolerance, no heat intolerance Hematologic/Lymphatic: no easy bruising, no easy bleeding Allergic/Immunologic: no urticaria Physical Examination Last Vital Signs Temp 98.1 F 09/05/19 04:08 Pulse 71 09/05/19 05:28 Resp 18 09/05/19 04:08 BP 116/68 09/05/19 08:48 Pulse Ox 100 09/05/19 05:28 General appearance: no acute distress HEENT: Positive: EOMI, Normocephaly, Mucus Membranes Moist Neck: Positive: neck supple, trachea midline Cardiac: Positive: Reg Rate and Rhythm, S1/S2 Lungs: Positive: clear to auscultation, No Wheeze, Rales, Rhonchi Neuro: Positive: Grossly Intact, Motor Function Intact, Coordination Normal Abdomen: Positive: Soft, Active Bowel Sounds. Negative: Tender Skin: Negative: Rash, Suspicious Lesions, Wound Musculoskeletal: No Pain Extremities: Present: upper extr. pulses, lower extr. pulses. Absent: edema Results 09/04/19 20:38 09/04/19 20:38 Cardiac Enzymes 09/04/19 Range/Units 20:38 AST 18 (5-40) units/L CBC 09/04/19 Range/Units 20:38 WBC 5.0 (4.5-11.0) K/mm3 RBC 3.84 (3.65-5.03) M/mm3 Hgb 6.7 L (10.1-14.3) gm/dl Hct 23.4 L (30.3-42.9) % Plt Count 336 (140-440) K/mm3 Comprehensive Metabolic Panel 09/04/19 Range/Units 20:38 Sodium 141 (137-145) mmol/L Potassium 3.9 (3.6-5.0) mmol/L Chloride 106.7 (98-107) mmol/L Carbon Dioxide 23 (22-30) mmol/L BUN 6 L (7-17) mg/dL Creatinine 0.7 (0.7-1.2) mg/dL Glucose 92 (65-100) mg/dL Calcium 9.0 (8.4-10.2) mg/dL AST 18 (5-40) units/L ALT 11 (7-56) units/L Alkaline Phosphatase 43 (35-129) units/L Total Protein 6.9 (6.3-8.2) g/dL Albumin 4.1 (3.9-5) g/dL - Imaging and Cardiology Echo: report reviewed (EF 55-60%; IVC at upper normal in size and collapse > 50% w/inspiration) EKG: report reviewed, image reviewed - EKG Interpretation EKG: no acute changes EKG interpretations - Telemetry EKG Rhythm: Sinus Rhythm - EKG Sinus rhythms and dysrhythmias: sinus rhythm Assessment and Plan S/p treadmill MPI stress test this AM - pt walked ~ 9 min, good exercise tolerance, no sx, MPI images negative for ischemia, normal EF. Currently stable cardiac status. CP currently resolved. Nothing further to add from cardiac perspective at this time. Will sign off. Further eval/management of anemia per primary team. Recommend f/u in our office with Dr. Barron within 1-2 weeks ([phone]). The patient has been seen in conjunction with Dr. Barron, who agrees with the assessment and plan of care. - Patient Problems (1) Chest pain Current Visit: Yes Status: Resolved (2) Symptomatic anemia Onset Date: 02/15/18 Current Visit: Yes Status: Acute (3) Menorrhagia Onset Date: 02/15/18 Current Visit: Yes Status: Chronic (4) History of uterine fibroid Current Visit: Yes Status: Chronic (5) Hx of myomectomy Current Visit: Yes Status: Chronic
--- NOTE | 2019-09-05 10:35 | Discharge Summary ---
Providers - Providers Date of Admission: 09/05/19 01:57 Attending physician: JAROD STACY MD 09/05/19 Consult to Cardiac Rehabilitation [CONS] Routine Reason For Exam: Phase 1 09/05/19 01:39 Consult to Physician [CONS] Routine Comment: Consulting Provider: RACHEL ARBOLEDA Physician Instructions: Reason For Exam: chest pain Primary care physician: [employer] Hospitalization Reason for admission: Chest pain Condition: Fair Hospital course: Patient is a 38-year-old female with a medical history of uterine fibroids and anemia who presents to ER with complaints of shortness of breath and chest pain x2 days. Per patient she has been previously referred to TRANSFUSION NURSE for hysterectomy. I did discuss extensively with the patient who is chest pain-free at this time. She underwent a stress test this morning and was noted to have 9 minutes good exercise tolerance with no symptoms MPI images were negative for ischemia patient had a normal EF. Recommendation is to follow-up with TRANSFUSION NURSE physician. Patient tolerated transfusion of 1 packed red blood cell. Atypical chest pain likely secondary to symptomatic anemia Symptomatic anemia -r/t chronic blood loss from menorrhagia -moderate anemia -Hb: 6.8g/dl -1 unit PRBC ordered Menorrhagia -hx of uterine fibroids -pt has referral for hysterectomy History of uterine fibroid History of myomectomy Disposition: - TO HOME OR SELFCARE Time spent for discharge: 35-minute Core Measure Documentation - Palliative Care Palliative Care/ Comfort Measures: Not Applicable - Core Measures Any of the following diagnoses?: none Exam - Physical Exam Narrative exam: VITAL SIGNS: Reviewed. GENERAL: The patient appears normally developed, Vital signs as documented. HEAD: No signs of head trauma. EYES: Pupils are equal. Extraocular motions intact. EARS: Hearing grossly intact. MOUTH: Oropharynx is normal. NECK: No adenopathy, no JVD. CHEST: Chest with clear breath sounds bilaterally. No wheezes, rales, or rhonchi. CARDIAC: Regular rate and rhythm. S1 and S2, without murmurs, gallops, or rubs. VASCULAR: No Edema. Peripheral pulses normal and equal in all extremities. ABDOMEN: Soft, non tender and non distended. No rebound or guarding, and no masses palpated. Bowel Sounds normal. MUSCULOSKELETAL: Good range of motion of all major joints. Extremities without clubbing, cyanosis or edema. NEUROLOGIC EXAM: Alert and oriented x 3 No focal sensory or strength deficits. Speech normal. Follows commands. PSYCHIATRIC: Mood normal. SKIN: detial exam as documented in skin assessment - Constitutional Vitals: Temp Pulse Resp BP Pulse Ox 98.1 F 71 18 116/68 100 09/05/19 04:08 09/05/19 05:28 09/05/19 04:08 09/05/19 08:48 09/05/19 05:28 Plan Activity: advance as tolerated, fall precautions Diet: low fat Special Instructions: record daily weights, record daily BP diary Additional Instructions: follow with Primary TRANSFUSION NURSE in 3-7 days Follow up with: PRIMARY CARE, [Primary Care Provider] - 3-5 Days Forms: Work/School Release Form
[2019-09-05] MEDS ORDERED: SODIUM CHLORIDE 0.9% 500 ML 500 ML IV SCH (11:00)
--- NOTE | 2019-09-05 14:51 | Treadmill Report ---
NUCLEAR CARDIAC STRESS TEST REPORT INDICATION FOR PROCEDURE: Chest pain. Informed consent was obtained. The baseline electrocardiogram demonstrates normal sinus rhythm and is within normal limits. The baseline blood pressure is 102/71. The patient exercised according to the [place] protocol for 9 minutes achieving a peak heart rate of 183 beats per minute and a maximum blood pressure of 154/74. Exercise was stopped due to fatigue. The patient achieved 101% of the maximum predicted heart rate response and attained a workload of 10.3 mets. The electrocardiographic response to treadmill exercise demonstrates the development of 2 mm of horizontal and downsloping ST segment depression in the inferolateral leads, which returned promptly back to baseline early in the recovery phase. There was no significant ectopy. Rest and stress nuclear cardiac images were performed following the intravenous administration of technetium-99m Myoview per protocol. Gated SPECT imaging demonstrates a post-stress left ventricular ejection fraction of 69% with normal wall motion. Myocardial perfusion imaging demonstrates no significant cavity change between stress and rest. No significant stress induced perfusion defects are seen. The treadmill exercise test is clinically nonischemic, but electrocardiographically suspicious for myocardial ischemia. The patient exhibited normal exercise tolerance. Nuclear cardiac imaging demonstrates grossly normal left ventricular systolic function with no significant evidence of myocardial ischemia or necrosis. In light of the caridac imaging results, the electrocardiographic response may be a false positive finding. JOB# [id number] OSMAR/JOHN NGUYEN
[2019-09-05 15:02] VITALS: BP 102/74
[2019-09-05] MEDS ORDERED: PANTOPRAZOLE 40 MG TAB PO SCH (22:00)
== END 2019-09-05 15:43 | disposition home or self-care (01) | DRG 812 ==
LOC: ED 18:28 → 4A 09-05 01:57
PROVIDERS: ADMIT Internal Medicine Geriatric Medicine; ATTEND Internal Medicine
PROC: 30233N1 Transfusion of Nonautologous Red Blood Cells into Peripheral Vein, Percutaneous Approach (ICD-10-PCS; principal; 2019-09-05)
DX: D50.0 Iron deficiency anemia secondary to blood loss (chronic) (principal); N92.0 Excessive and frequent menstruation with regular cycle; D64.9 Anemia, unspecified; G43.909 Migraine, unspecified, not intractable, without status migrainosus; Z98.51 Tubal ligation status; Z79.899 Other long term (current) drug therapy; Z80.9 Family history of malignant neoplasm, unspecified; Z82.49 Family history of ischemic heart disease and other diseases of the circulatory system; Z83.3 Family history of diabetes mellitus
CPT/HCPCS: 36415; 71046; 78452; 80053; 81001; 84484; 84703; 85007; 85025; 86850; 86900; 86901; 86920; 93005; 93010; 93017; 93306; 96374; G0378; A9502; C9113; J2785; J7040; P9016

== ENCOUNTER 2020-02-02 21:40 | Emergency (ER) | payer SELFPAY ==
[2020-02-02 22:04] VITALS: BP 108/73
== END 2020-02-02 22:29 | disposition left against medical advice (07) ==
LOC: ED 21:40
DX: R51 Headache (principal); Z53.21 Procedure and treatment not carried out due to patient leaving prior to being seen by health care provider

== ENCOUNTER 2020-09-03 19:55 | Emergency (ER) | payer SELFPAY ==
[2020-09-03 20:22] VITALS: BP 150/65
--- NOTE | 2020-09-03 21:30 | XRay Report ---
CHEST 2 VIEWS INDICATION / CLINICAL INFORMATION: cough productive. COMPARISON: 09/04/2019. FINDINGS: SUPPORT DEVICES: None. HEART / MEDIASTINUM: No significant abnormality. LUNGS / PLEURA: No significant pulmonary or pleural abnormality. No pneumothorax. ADDITIONAL FINDINGS: No significant additional findings. IMPRESSION: No acute cardiopulmonary abnormality. Signer Name: Madi Fajardo MD Signed: 09/03/2020 9:26 PM Workstation Name: [id number]
--- NOTE | 2020-09-03 21:57 | Emergency Department Report ---
- General Chief Complaint: Sore Throat Stated Complaint: EMESIS/THROAT PAIN PUI?: Yes Time Seen by Provider: 09/03/20 20:51 Source: patient Mode of arrival: Ambulatory Limitations: No Limitations - History of Present Illness MD Complaint: cough, sore throat, rhinorrhea, nasal congestion -: days(s) (5) Severity: mild Quality: dull Improves With: nothing Worsens With: nothing Associated Symptoms: chills, rhinorrhea, nasal congestion, sore throat, cough. denies: shortness of breath, vomiting, confusion, epistaxis, hoarseness - Related Data Home Medications Medication Instructions Recorded Confirmed Last Taken Ferrous Sulfate [Iron Supplement 65 mg PO TID 08/26/14 09/05/19 02/13/18 325 Mg tab] Previous Rx's Medication Instructions Recorded Last Taken Type Butalb/Acetaminophen/Caffeine 1 cap PO Q8HR PRN #10 cap 11/27/19 Unknown Rx [Fioricet 50-300-40 mg CAP] Ondansetron [Zofran Odt] 4 mg PO Q8HR PRN #10 tab.rapdis 11/27/19 Unknown Rx Azithromycin [Zithromax TAB] 500 mg PO QDAY #3 tablet 09/03/20 Unknown Rx Benzonatate [Tessalon Perles] 100 mg PO Q8HR #20 capsule 09/03/20 Unknown Rx Allergies Allergy/AdvReac Type Severity Reaction Status Date / Time No Known Allergies Allergy Verified 02/12/19 12:27 ED Review of Systems ROS: Stated complaint: EMESIS/THROAT PAIN Other details as noted in HPI Comment: All other systems reviewed and negative ED Past Medical Hx - Past Medical History Hx Hypertension: No Hx Congestive Heart Failure: No Hx Diabetes: No Hx Renal Disease: No Hx Headaches / Migraines: Yes Hx Asthma: No Hx COPD: No Additional medical history: Anemia, History blood transfusions - Surgical History Additional Surgical History: csection x 2, Fibroid tumor removal, Tubal Ligation - Social History Smoking Status: Never Smoker - Medications Home Medications: Home Medications Medication Instructions Recorded Confirmed Last Taken Type Ferrous Sulfate [Iron Supplement 65 mg PO TID 08/26/14 09/05/19 02/13/18 History 325 Mg tab] Butalb/Acetaminophen/Caffeine 1 cap PO Q8HR PRN #10 cap 11/27/19 Unknown Rx [Fioricet 50-300-40 mg CAP] Ondansetron [Zofran Odt] 4 mg PO Q8HR PRN #10 tab.rapdis 11/27/19 Unknown Rx Azithromycin [Zithromax TAB] 500 mg PO QDAY #3 tablet 09/03/20 Unknown Rx Benzonatate [Tessalon Perles] 100 mg PO Q8HR #20 capsule 09/03/20 Unknown Rx ED Physical Exam - General Limitations: No Limitations General appearance: alert, in no apparent distress - Head Head exam: Present: atraumatic, normocephalic - Eye Eye exam: Present: normal appearance, PERRL, EOMI. Absent: scleral icterus, conjunctival injection, periorbital tenderness - ENT ENT exam: Present: normal exam, mucous membranes moist - Neck Neck exam: Present: normal inspection, full ROM - Respiratory Respiratory exam: Present: normal lung sounds bilaterally. Absent: respiratory distress, wheezes, rales, accessory muscle use, prolonged expiratory - Cardiovascular Cardiovascular Exam: Present: regular rate, normal rhythm. Absent: systolic murmur, diastolic murmur, rubs, gallop - GI/Abdominal GI/Abdominal exam: Present: soft, normal bowel sounds. Absent: hyperactive bowel sounds - Extremities Exam Extremities exam: Present: normal inspection - Back Exam Back exam: Present: normal inspection - Neurological Exam Neurological exam: Present: alert, oriented X3 - Psychiatric Psychiatric exam: Present: normal affect, normal mood - Skin Skin exam: Present: warm, dry, intact, normal color. Absent: rash ED Course Vital Signs 09/03/20 20:20 Temperature 98.9 F Pulse Rate 101 H Respiratory 18 Rate Blood Pressure 150/65 O2 Sat by Pulse 100 Oximetry ED Medical Decision Making - Medical Decision Making This patient presents with acute cough, most consistent with bronchitis. Differential diagnosis includes viral syndrome, asthma, bronchitis, pneumonia,. Presentation not consistent with acute bacterial pneumonia, influenza, asthma, transient airway hyperresponsiveness. Presentation not consistent with chronic causes of cough (including GERD, asthma, postnasal discharge, medication side effect, CHF, lung cancer or mass). This patient presents with lower respiratory symptoms concerning for viral syndrome including flu. Patient does not meet criteria for COVID-19. Doubt pneumonia, sepsis or other serious bacterial infection or acute emergent condition. Is otherwise well- appearing with acceptable vitals and reassuring physical examination and is safe to be discharged home. Patient lacks serious medical comorbidities that would require admission. Patient is nontoxic and although symptomatic otherwise safe to go home. Will provide strict return precautions and instructions on self isolation/quarantine and anticipatory guidance. Plan: Normal CXR, supportive care, reassess Critical care attestation.: If time is entered above; I have spent that time in minutes in the direct care of this critically ill patient, excluding procedure time. ED Disposition Clinical Impression: Pharyngitis, Acute asthmatic bronchitis Disposition: TO HOME OR SELFCARE Is pt being admited?: No Does the pt Need Aspirin: No Condition: Stable Instructions: Cough, Adult, [id number], Upper Respiratory Infection, Adult, How to Use a Metered Dose Inhaler, Pharyngitis, [id number], Chronic Bronchitis, Adult, Viral Respiratory Infection, Acute Bronchitis (ED) Prescriptions: Benzonatate [Tessalon Perles] 100 mg PO Q8HR #20 capsule Azithromycin [Zithromax TAB] 500 mg PO QDAY #3 tablet Referrals: [facility] [Provider Group] - 3-5 Days PRIMARY CARE, [Primary Care Provider] - 3-5 Days Forms: Work/School Release Form(ED)
== END 2020-09-03 22:27 | disposition home or self-care (01) ==
LOC: ED 19:55
DX: J45.909 Unspecified asthma, uncomplicated (principal); J02.9 Acute pharyngitis, unspecified; G43.909 Migraine, unspecified, not intractable, without status migrainosus; D64.9 Anemia, unspecified; Z79.899 Other long term (current) drug therapy; Z98.890 Other specified postprocedural states; Z98.51 Tubal ligation status
CPT/HCPCS: 71046; 99283

== ENCOUNTER 2020-09-23 13:36 | Emergency (ER) | payer SELFPAY ==
[2020-09-23 14:39] VITALS: BP 136/69
--- NOTE | 2020-09-23 14:54 | Emergency Department Report ---
- General Chief Complaint: Upper Respiratory Infection Stated Complaint: COUGH Time Seen by Provider: 09/23/20 14:51 Source: patient Mode of arrival: Ambulatory Limitations: No Limitations - History of Present Illness Initial Comments: 39-year-old female with no significant past medical history presents to the ER today with complaints of a cough. Patient states that cough started about a week ago. She describes it as a productive cough. She reports associated mild wheezing, shortness of breath mainly when she is coughing, generalized body aches, runny nose and nasal congestion. She states that she has been taking a COVID-19 test in the past week. She denies any ill contacts or known COVID-19 contacts. She states that she has had a history of bronchitis in the past but no other lung disease or heart disease. She reports nausea, decreased appetite and loose stools but she states that her taste and smell is okay. She denies tobacco use. She reports no other symptoms at this time. MD Complaint: cough -: week(s) (1) - Related Data Previous Rx's Medication Instructions Recorded Last Taken Type Albuterol Mdi (or & Nicu Only) 2 puff IH QID PRN #8.5 gram 09/23/20 Unknown Rx [ProAir HFA Inhaler] guaiFENesin/DEXTROMETHORPHAN 1 each PO Q12HR PRN #20 tab.er.12h 09/23/20 Unknown Rx [Mucinex Dm ER 600-30 mg Tablet] predniSONE [Deltasone] 50 mg PO QDAY #5 tab 09/23/20 Unknown Rx Allergies Allergy/AdvReac Type Severity Reaction Status Date / Time No Known Allergies Allergy Verified 02/12/19 12:27 ED Review of Systems ROS: Stated complaint: COUGH Other details as noted in HPI Comment: All other systems reviewed and negative Respiratory: cough, shortness of breath (When she coughs). denies: SOB with exertion, SOB at rest Cardiovascular: denies: chest pain, palpitations, dyspnea on exertion, orthopnea, edema, syncope, paroxysmal nocturnal dyspnea Gastrointestinal: denies: abdominal pain, nausea, vomiting, diarrhea, constipation, hematemesis, hematochezia Musculoskeletal: arthralgia, myalgia Skin: denies: rash, lesions Psychiatric: denies: anxiety, depression Hematological/Lymphatic: denies: easy bleeding, easy bruising ED Past Medical Hx - Past Medical History Previous Medical History?: Yes Hx Hypertension: No Hx Congestive Heart Failure: No Hx Diabetes: No Hx Renal Disease: No Hx Headaches / Migraines: Yes Hx Asthma: No Hx COPD: No Additional medical history: Anemia, History blood transfusions - Surgical History Past Surgical History?: Yes Additional Surgical History: csection x 2, Fibroid tumor removal, Tubal Ligation - Social History Smoking Status: Never Smoker Substance Use Type: None - Medications Home Medications: Home Medications Medication Instructions Recorded Confirmed Last Taken Type Albuterol Mdi (or & Nicu Only) 2 puff IH QID PRN #8.5 gram 09/23/20 Unknown Rx [ProAir HFA Inhaler] guaiFENesin/DEXTROMETHORPHAN 1 each PO Q12HR PRN #20 tab.er.12h 09/23/20 Unknown Rx [Mucinex Dm ER 600-30 mg Tablet] predniSONE [Deltasone] 50 mg PO QDAY #5 tab 09/23/20 Unknown Rx ED Physical Exam - General Limitations: No Limitations General appearance: alert, in no apparent distress - Head Head exam: Present: atraumatic, normocephalic, normal inspection - Eye Eye exam: Present: normal appearance, PERRL, EOMI Pupils: Present: normal accommodation - ENT ENT exam: Present: mucous membranes moist - Neck Neck exam: Present: normal inspection, full ROM, lymphadenopathy - Respiratory Respiratory exam: Present: normal lung sounds bilaterally, other (Patient does have a, frequent, intermittent dry cough). Absent: respiratory distress, wheezes, rales, rhonchi - Cardiovascular Cardiovascular Exam: Present: regular rate, normal rhythm, normal heart sounds - Neurological Exam Neurological exam: Present: alert, oriented X3, CN II-XII intact, normal gait - Psychiatric Psychiatric exam: Present: normal affect, normal mood - Skin Skin exam: Present: intact ED Course Vital Signs 09/23/20 14:33 Temperature 98.9 F Pulse Rate 97 H Respiratory 18 Rate Blood Pressure 136/69 O2 Sat by Pulse 97 Oximetry ED Medical Decision Making - Radiology Data Radiology results: report reviewed Patient: STEVEN FERREIRA MR#: [id number] : 1980 Acct:[id number] Age/Sex: 39 / F ADM Date: 09/23/20 Loc: ED Attending Dr: Ordering Physician: FREEMAN HANKS Date of Service: 09/23/20 Procedure(s): XR chest routine 2V Accession Number(s): [id number] cc: FREEMAN HANKS Fluoro Time In Minutes: . XR chest routine 2V INDICATION / CLINICAL INFORMATION: Cough COMPARISON: September 03, 2020 FINDINGS: SUPPORT DEVICES: None. HEART / MEDIASTINUM: No significant abnormality. LUNGS / PLEURA: Lungs are clear. Costophrenic sulci are sharp. No pneumothorax. ADDITIONAL FINDINGS: No significant additional findings. IMPRESSION: 1. No acute findings. Signer Name: Pelon Bojorquez MD Signed: 09/23/2020 3:18 PM Workstation Name: [id number] Transcribed By: CS Dictated By: Pelon Bojorquez MD Electronically Authenticated By: Pelon Bojorquez MD Signed Date/Time: 09/23/201517 DD/ 16 TD/TT: - Medical Decision Making The patient is resting comfortably, is alert and in no distress. The patient has normal mental status and is neurologically intact. The patient appears well and there is no significant dehydration. There is no respiratory distress and no signs of systemic toxicity. Her history history, exam, diagnostic testing and current condition do not demonstrate an infectious process such as meningitis, severe pneumonia, retropharyngeal abscess, epiglottitis, sepsis or other serious bacterial infection requiring further testing, treatment, consultation or admission at this time. The vital signs have been stable. Discussed x-ray results, suspected diagnosis and treatment plan with patient the patient's condition is stable and appropriate for discharge. The patient will pursue further outpatient evaluation with the primary care physician or other designated. Critical care attestation.: If time is entered above; I have spent that time in minutes in the direct care of this critically ill patient, excluding procedure time. ED Disposition Clinical Impression: Bronchitis, URI (upper respiratory infection) Disposition: - TO HOME OR SELFCARE Is pt being admited?: No Does the pt Need Aspirin: No Condition: Stable Instructions: Viral Respiratory Infection Test, Acute Bronchitis, Adult, Chronic Bronchitis (ED) Additional Instructions: Use the inhaler as instructed. Take the steroids and the cough medication as prescribed. You can take tylenol or motrin as needed for pain. I recommend getting an outpatient COVID 19 test. Follow up with your PCP. Return to ED if symptoms changes or worsens in anyway. Prescriptions: predniSONE [Deltasone] 50 mg PO QDAY #5 tab guaiFENesin/DEXTROMETHORPHAN [Mucinex Dm ER 600-30 mg Tablet] 1 each PO Q12HR PRN #20 tab.er.12h PRN Reason: Cough Albuterol Mdi (or & Nicu Only) [ProAir HFA Inhaler] 2 puff IH QID PRN #8.5 gram PRN Reason: Shortness Of Breath Referrals: AMAURY PRESTON MD [Staff Physician] - 3-5 Days Forms: Work/School Release Form(ED) Time of Disposition: 15:34
--- NOTE | 2020-09-23 15:22 | XRay Report ---
. XR chest routine 2V INDICATION / CLINICAL INFORMATION: Cough COMPARISON: September 03, 2020 FINDINGS: SUPPORT DEVICES: None. HEART / MEDIASTINUM: No significant abnormality. LUNGS / PLEURA: Lungs are clear. Costophrenic sulci are sharp. No pneumothorax. ADDITIONAL FINDINGS: No significant additional findings. IMPRESSION: 1. No acute findings. Signer Name: Pelon Bojorquez MD Signed: 09/23/2020 3:18 PM Workstation Name: [id number]
== END 2020-09-23 16:15 | disposition home or self-care (01) ==
LOC: ED 13:36
DX: J06.9 Acute upper respiratory infection, unspecified (principal); J40 Bronchitis, not specified as acute or chronic; G43.909 Migraine, unspecified, not intractable, without status migrainosus; D64.9 Anemia, unspecified; Z98.890 Other specified postprocedural states; Z79.899 Other long term (current) drug therapy; Z98.51 Tubal ligation status
CPT/HCPCS: 71046

== ENCOUNTER 2020-11-17 16:25 | Observation (INO) | payer OTHER ==
[2020-11-17 19:52] LABS: Mean Corpuscular HGB Conc 26 % (30-34); Platelet Count 588 K/mm3 (140-440); Red Blood Count 3.48 M/mm3 (3.65-5.03)
[2020-11-17 20:01] LABS: Alanine Aminotransferase 7 units/L (7-56); Albumin 3.9 g/dL (3.9-5); BUN/Creatinine Ratio 10; Blood Urea Nitrogen 6 mg/dL (7-17); Calcium 8.4 mg/dL (8.4-10.2); Hemolysis Index 12
--- NOTE | 2020-11-17 20:06 | Emergency Department Report ---
<ROXANE AVENDAÑO - Last Filed: 11/17/20 22:15> ED Abdominal Pain HPI - General Chief Complaint: Abdominal Pain Stated Complaint: SEVERE HEADACHE/ABD PAIN/DIARRHEA Time Seen by Provider: 11/17/20 19:16 Source: family Mode of arrival: Ambulatory Limitations: No Limitations - History of Present Illness Initial Comments: 39-year-old -L[place]uanian female presents to the emergency room complaining of headache x2 days since taking BC powders. Abdominal pain x2 days with sharp constant pain with nothing making it better nothing makes it worse. She also complains of diarrhea intermittent that is watery. Patient denies any fever chills no nausea no vomiting no vaginal discharge or vaginal bleeding. Denies any concern for STD. She is 2 para 2 last menstrual period was 11/09/2020. Patient does not have a primary care provider at this time. Patient states she did try taking Pepto-Bismol yesterday. She reports 4 loose stools today. She does have a past medical history of migraines and anemia. She has never followed up with a neurologist for her migraines. MD Complaint: abdominal pain - Related Data Previous Rx's Medication Instructions Recorded Last Taken Type Albuterol Mdi (or & Nicu Only) 2 puff IH QID PRN #8.5 gram 09/23/20 Unknown Rx [ProAir HFA Inhaler] guaiFENesin/DEXTROMETHORPHAN 1 each PO Q12HR PRN #20 tab.er.12h 09/23/20 Unknown Rx [Mucinex Dm ER 600-30 mg Tablet] predniSONE [Deltasone] 50 mg PO QDAY #5 tab 09/23/20 Unknown Rx Allergies Allergy/AdvReac Type Severity Reaction Status Date / Time No Known Allergies Allergy Verified 02/12/19 12:27 ED Past Medical Hx - Past Medical History Previous Medical History?: Yes Hx Hypertension: No Hx Congestive Heart Failure: No Hx Diabetes: No Hx Renal Disease: No Hx Headaches / Migraines: Yes Hx Asthma: No Hx COPD: No Additional medical history: Anemia, History blood transfusions - Surgical History Additional Surgical History: csection x 2, Fibroid tumor removal, Tubal Ligation - Social History Smoking Status: Never Smoker Substance Use Type: None - Medications Home Medications: Home Medications Medication Instructions Recorded Confirmed Last Taken Type Albuterol Mdi (or & Nicu Only) 2 puff IH QID PRN #8.5 gram 09/23/20 Unknown Rx [ProAir HFA Inhaler] guaiFENesin/DEXTROMETHORPHAN 1 each PO Q12HR PRN #20 tab.er.12h 09/23/20 Unknown Rx [Mucinex Dm ER 600-30 mg Tablet] predniSONE [Deltasone] 50 mg PO QDAY #5 tab 09/23/20 Unknown Rx ED Physical Exam - General Limitations: No Limitations ED Medical Decision Making - Lab Data Result diagrams: 11/17/20 19:21 11/17/20 19:21 - Radiology Data Radiology results: report reviewed [facility] [address] [place] [address] Cat Scan Report Signed Patient: STEVEN FERREIRA MR#: [id number] : 1980 Acct:[id number] Age/Sex: 39 / F ADM Date: 11/17/20 Loc: ED Attending Dr: Ordering Physician: CHON CABRERA Date of Service: 11/17/20 Procedure(s): CT abdomen pelvis w con Accession Number(s): [id number] cc: CHON CABRERA CT ABDOMEN AND PELVIS WITH CONTRAST INDICATION / CLINICAL INFORMATION: abd pain. TECHNIQUE: Axial CT images were obtained through the abdomen and pelvis after 100 cc Omnipaque [address] scans at this location are performed using CT dose reduction for ALARA by means of automated exposure control. COMPARISON: 02/14/2018 CT abdomen pelvis FINDINGS: LOWER CHEST: No significant abnormality. HEPATOBILIARY: Subcentimeter hypointensities throughout the liver are too small to definitely characterize, possible cysts. 2.0 cm focal hypodensity in the inferior aspect of the right hepatic lobe is consistent with a simple cyst. Findings are similar when compared to 02/14/2018. No focal enhancing lesion is identified. No significant biliary abnormality. PANCREAS/SPLEEN/ADRENALS: No significant abnormality. GENITOURINARY: No significant abnormality. GASTROINTESTINAL/MESENTERY: No convincing evidence of acute appendicitis noting difficult evaluation secondary to obscuration by the enlarged uterus. No definite bowel obstruction or inflammation. No free air or significant free fluid is appreciated. RETROPERITONEUM: No significant adenopathy. REPRODUCTIVE ORGANS: Markedly enlarged uterine fundus with numerous heterogeneous focal lesions. Altogether the uterus measures approximately 10.0 x 17.6 x 23.1 cm. Largest focal lesion is exophytic from the right aspect fundus and measures approximately 7.5 cm. Findings have significantly progressed when compared to 02/14/2018 noting an enlarged multi- fibroid uterus on that examination. VASCULAR: No significant abnormality. BODY WALL: No significant abnormality. SKELETAL SYSTEM: No significant abnormality. IMPRESSION: 1. Enlarged, leiomyomatous uterus, as described above. Findings have sign ificantly progressed when compared to 02/14/2018. Consider further evaluation/follow-up, as warranted. 2. Small right hepatic lobe simple cyst as well as other hypodensities which are too small to definitely characterize, possible cysts. Signer Name: Ambreen Castellano MD Signed: 11/17/2020 9:43 PM Workstation Name: [id number] Transcribed By: Dictated By: AMBREEN CASTELLANO III Electronically Authenticated By: AMBREEN CASTELLANO III Signed Date/Time: 11/17/202142 DD/ 33 TD/TT: [facility] [address] [place] [address] Cat Scan Report Signed Patient: STEVEN FERREIRA MR#: [id number] : 1980 Acct:[id number] Age/Sex: 39 / F ADM Date: 11/17/20 Loc: ED Attending Dr: Ordering Physician: HAY LIRA DO Date of Service: 11/17/20 Procedure(s): CT head/brain wo con Accession Number(s): [id number] cc: HAY LIRA DO NONENHANCED CT SCAN OF THE HEAD: INDICATION / CLINICAL INFORMATION: 39 years Female; headache. TECHNIQUE: Routine CT head without contrast. All CT scans at this location are performed using CT dose reduction for ALARA by means of automated exposure control. COMPARISON: None. FINDINGS: BRAIN / INTRACRANIAL CONTENTS: No acute hemorrhage, mass effect, midline shift, hydrocephalus, or acute, large territorial infarct. No chronic infarct or focal atrophy. Normal brain volume and ventricular/sulcal size for age. No significant white matter abnormality. CRANIOCERVICAL JUNCTION: No significant abnormality. ORBITS: Bony remodeling along the medial wall of the left orbit; This appears to be from old healed trauma SINUSES / MASTOIDS: No significant abnormality of the visualized paranasal sinuses or mastoid air cells. ADDITIONAL FINDINGS: None. IMPRESSION: No focal mass, hemorrhage, hydrocephalus, or acute, large territorial infarct. Signer Name: Shaan Tadeo MD Signed: 11/17/2020 9:32 PM Workstation Name: [id number] Transcribed By: BS Dictated By: Shaan Perez MD Electronically Authenticated By: Shaan Perez MD Signed Date/Time: 11/17/202131 DD/ 28 TD/TT: Print Cancel - Medical Decision Making 39-year-old -Lithuanian female presents to the emergency room complaining of headache x2 days since taking BC powders. Abdominal pain x2 days with sharp constant pain with nothing making it better nothing makes it worse. She also complains of diarrhea intermittent that is watery. Patient denies any fever chills no nausea no vomiting no vaginal discharge or vaginal bleeding. Denies any concern for STD. She is 2 para 2 last menstrual period was 11/09/2020. Patient does not have a primary care provider at this time. Patient states she did try taking Pepto-Bismol yesterday. She reports 4 loose stools today. She does have a past medical history of migraines and anemia. She has never followed up with a neurologist for her migraines. ED Disposition Clinical Impression: Anemia requiring transfusions, Microcytic anemia, Leiomyoma Abdominal pain Qualifiers: Abdominal location: unspecified location Qualified Code(s): R10.9 - Unspecified abdominal pain Headache Qualifiers: Headache type: unspecified Headache chronicity pattern: unspecified pattern Intractability: not intractable Qualified Code(s): R51.9 - Headache, unspecified Disposition: 09 OP ADMIT IP TO THIS HOSP Condition: Serious <HAY LIRA S - Last Filed: 11/17/20 23:12> ED Abdominal Pain HPI - History of Present Illness Initial Comments: I have seen this patient in conjunction with the CHON Thurman. The patient was brought back to the main emergency department after the patient was found to have significant anemia with a hemoglobin of 5.2. The patient presents with a 2-day history of abdominal pain and a headache. Headache is right frontal and throbbing. She says that she does have a history of migraines but does not take any medication for it. Usually her migraines occur right in the middle of her forehead. She denies any blurry vision, slurred speech, numbness or paresthesias, weakness, or any other neurological deficits. The abdominal pain initially was in the upper abdomen, but now is in the lower abdomen. It is currently a 7 out of 10 in intensity. No known aggravating or alleviating factors. She denies any fever, dysuria, vaginal bleeding or discharge, constipation, but does have some "loose stools." She denies any rectal bleeding. Patient last had a menstrual cycle about 1 week ago. She does admit to heavy and prolonged menstrual bleeding. Patient does have a history of anemia and has required transfusion in the past. ED Review of Systems ROS: Stated complaint: SEVERE HEADACHE/ABD PAIN/DIARRHEA Other details as noted in HPI ED Physical Exam - Other Other exam information: GENERAL: The patient is well-developed well-nourished. HENT: Normocephalic. Atraumatic. Patient has moist mucous membranes. EYES: Extraocular motions are intact. Pale conjunctiva. No nystagmus. NECK: Supple. Trachea is midline. CHEST/LUNGS: Clear to auscultation. There is no respiratory distress noted. HEART/CARDIOVASCULAR: Regular. There is no tachycardia. There is no murmur. ABDOMEN: Abdomen is soft. Lower abdominal tenderness to palpation. No guarding. Patient has normal bowel sounds. There is no abdominal distention. SKIN: Skin is warm and dry. NEURO: The patient is awake, alert, and oriented. The patient is cooperative. The patient has no focal neurologic deficits. Normal speech. Cranial nerves II through XII grossly intact. MUSCULOSKELETAL: There is no tenderness or deformity. There is no limitation range of motion. ED Course Vital Signs 11/17/20 11/17/20 11/17/20 18:07 20:45 21:00 Temperature 98.6 F Pulse Rate 85 75 77 Respiratory 18 16 15 Rate Blood Pressure 120/69 116/73 Blood Pressure 132/95 [Right] O2 Sat by Pulse 100 100 99 Oximetry 11/17/20 11/17/20 11/17/20 21:27 21:30 21:45 Temperature Pulse Rate 70 72 70 Respiratory 21 13 Rate Blood Pressure 129/63 114/66 124/78 Blood Pressure [Right] O2 Sat by Pulse 100 100 100 Oximetry 11/17/20 11/17/20 11/17/20 22:00 22:15 22:30 Temperature 97.9 F Pulse Rate 68 71 69 Respiratory 17 17 17 Rate Blood Pressure 109/61 117/66 97/48 Blood Pressure [Right] O2 Sat by Pulse 100 100 100 Oximetry - Reevaluation(s) Reevaluation #1: 11/17/20 20:[address] a CT scan of the abdomen and pelvis ordered through triage. I have added a CT scan of the head without contrast. I will order 2 units of packed red blood cells for transfusion. The patient will be admitted to the hospital pending the results of the CT scans to make sure she does not require transfer to a tertiary facility. ED Medical Decision Making - Lab Data Result diagrams: 11/17/20 19:21 11/17/20 19:21 - Medical Decision Making Patient presents with a 2-day history of a headache. No focal, motor or sensory deficits and her cranial nerves are intact. CT scan of the head without contrast does not show any hemorrhage, large vessel occlusion, or any other acute process. She has a 2-day history of abdominal pain as well. There is some reproducible lower abdominal tenderness to palpation but no guarding. The abdomen is soft, nondistended and nontoxic in appearance. CT scan of the abdomen and pelvis with IV contrast shows uterine fibroid disease but otherwise no acute process. Hemoglobin is about 5.2. It is microcytic. Most likely iron deficiency anemia and chronic blood loss anemia. I have ordered 2 units of packed red blood cells for transfusion. Patient will be admitted to the hospital and has been accepted for admission by the hospitalist, Dr. Richards. Critical Care Time: No Critical care attestation.: If time is entered above; I have spent that time in minutes in the direct care of this critically ill patient, excluding procedure time. ED Disposition Is pt being admited?: Yes Time of Disposition: 22:24
[2020-11-17 20:07] LABS: Mean Corpuscular Volume 56 fl (79-97); Red Cell Distribution Width 24.6 % (13.2-15.2)
[2020-11-17 20:09] LABS: Hematocrit 19.5 % (30.3-42.9); Hemoglobin 5.2 gm/dl (10.1-14.3)
[2020-11-17 20:48] LABS: Bilirubin,Urine NEG (Negative); Blood,Urine NEG (Negative); Color,Urine Yellow (Yellow); Mucus,Urine FEW /HPF; Protein,Urine <15 mg/dL mg/dL (Negative); Urobilinogen,Urine < 2.0 mg/dL (<2.0)
[2020-11-17] MEDS ORDERED: SODIUM CHLORIDE 0.9% 500 ML 500 ML IV ONE (20:57)
[2020-11-17] MEDS ORDERED: diphenhydrAMINE 50 MG/ML VIAL IV ONE (21:36)
[2020-11-17] MEDS ORDERED: METOCLOPRAMIDE 10 MG/2 ML INJ IV ONE (21:36)
--- NOTE | 2020-11-17 21:36 | Cat Scan Report ---
NONENHANCED CT SCAN OF THE HEAD: INDICATION / CLINICAL INFORMATION: 39 years Female; headache. TECHNIQUE: Routine CT head without contrast. All CT scans at this location are performed using CT dos e reduction for ALARA by means of automated exposure control. COMPARISON: None. FINDINGS: BRAIN / INTRACRANIAL CONTENTS: No acute hemorrhage, mass effect, midline shift, hydrocephalus, or acu te, large territorial infarct. No chronic infarct or focal atrophy. Normal brain volume and ventricul ar/sulcal size for age. No significant white matter abnormality. CRANIOCERVICAL JUNCTION: No significant abnormality. ORBITS: Bony remodeling along the medial wall of the left orbit; This appears to be from old healed t rauma SINUSES / MASTOIDS: No significant abnormality of the visualized paranasal sinuses or mastoid air mickey ls. ADDITIONAL FINDINGS: None. IMPRESSION: No focal mass, hemorrhage, hydrocephalus, or acute, large territorial infarct. Signer Name: Shaan Tadeo MD Signed: 11/17/2020 9:32 PM Workstation Name: [id number]
--- NOTE | 2020-11-17 21:47 | Cat Scan Report ---
CT ABDOMEN AND PELVIS WITH CONTRAST INDICATION / CLINICAL INFORMATION: abd pain. TECHNIQUE: Axial CT images were obtained through the abdomen and pelvis after 100 cc Omnipaque [address] scans at this location are performed using CT dose reduction for ALARA by means of automated exposure control. COMPARISON: 02/14/2018 CT abdomen pelvis FINDINGS: LOWER CHEST: No significant abnormality. HEPATOBILIARY: Subcentimeter hypointensities throughout the liver are too small to definitely charact erize, possible cysts. 2.0 cm focal hypodensity in the inferior aspect of the right hepatic lobe is c onsistent with a simple cyst. Findings are similar when compared to 02/14/2018. No focal enhancing les ion is identified. No significant biliary abnormality. PANCREAS/SPLEEN/ADRENALS: No significant abnormality. GENITOURINARY: No significant abnormality. GASTROINTESTINAL/MESENTERY: No convincing evidence of acute appendicitis noting difficult evaluation secondary to obscuration by the enlarged uterus. No definite bowel obstruction or inflammation. No fr ee air or significant free fluid is appreciated. RETROPERITONEUM: No significant adenopathy. REPRODUCTIVE ORGANS: Markedly enlarged uterine fundus with numerous heterogeneous focal lesions. Quincy gether the uterus measures approximately 10.0 x 17.6 x 23.1 cm. Largest focal lesion is exophytic fro m the right aspect fundus and measures approximately 7.5 cm. Findings have significantly progressed w hen compared to 02/14/2018 noting an enlarged multi-fibroid uterus on that examination. VASCULAR: No significant abnormality. BODY WALL: No significant abnormality. SKELETAL SYSTEM: No significant abnormality. IMPRESSION: 1. Enlarged, leiomyomatous uterus, as described above. Findings have significantly progressed when co mpared to 02/14/2018. Consider further evaluation/follow-up, as warranted. 2. Small right hepatic lobe simple cyst as well as other hypodensities which are too small to definit radha characterize, possible cysts. Signer Name: Loy Castellano MD Signed: 11/17/2020 9:43 PM Workstation Name: [id number]
[2020-11-17 22:31] LABS: Anisocytosis 1+; Hypochromasia 1+; Total Cells Counted 100
[2020-11-17] MEDS ORDERED: MAGNESIUM HYDROXIDE (MOM) ORAL LIQD UDC PO PRN (22:44)
[2020-11-17] MEDS ORDERED: MORPHINE 2 MG/1 ML INJ IV PRN (22:44)
[2020-11-17] MEDS ORDERED: ACETAMINOPHEN 325 MG TAB PO PRN (22:44)
[2020-11-17] MEDS ORDERED: ONDANSETRON 4 MG/2 ML INJ IV PRN (22:44)
--- NOTE | 2020-11-17 22:56 | History and Physical Report ---
History of Present Illness Date of examination: 11/17/20 Date of admission: 11/17/20 22:24 Chief complaint: Headache Abdominal pain History of present illness: 39-year-old -[place] female with known history of uterine fibroid migraine headache presenting in the emergency room today complaining of headache which has been ongoing for about 2 days. She has also had some abdominal pain with associated loose stools intermittently. There is no no relieving or exacerbating factor. Patient denies any fever or chills, no nausea vomiting, no vaginal bleeding or discharge. Patient however indicates that her menstruation is always heavy and last menstrual period was on December 09, 2020. Patient has taken some Pepto-Bismol yesterday without any significant impr ovement. She also has not followed up with any neurologist for her migraine headaches. 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 Work-up in the emergency room today reveals hemoglobin of 5.2 hematocrit and hematocrit of 19.5, urinalysis was negative. CT scan of the abdomen and pelvis reveals enlarged leiomyomatous uterus. Patient being admitted for anemia and headache. She has been initiated on blood transfusion in the ER. Past History Past Medical History: migraines, other (History of uterine fibroid, anemia requiring blood transfusions) Past Surgical History: , Other (Tubal ligation, fibroid tumor removal.) Social history: no significant social history Family history: no significant family history Medications and Allergies Allergies Allergy/AdvReac Type Severity Reaction Status Date / Time No Known Allergies Allergy Verified 02/12/19 12:27 Home Medications Medication Instructions Recorded Confirmed Last Taken Type Albuterol Mdi (or & Nicu Only) 2 puff IH QID PRN #8.5 gram 09/23/20 Unknown Rx [ProAir HFA Inhaler] guaiFENesin/DEXTROMETHORPHAN 1 each PO Q12HR PRN #20 tab.er.12h 09/23/20 Unknown Rx [Mucinex Dm ER 600-30 mg Tablet] predniSONE [Deltasone] 50 mg PO QDAY #5 tab 09/23/20 Unknown Rx Active Meds: Active Medications Acetaminophen (Acetaminophen 325 Mg Tab) 650 mg PO Q4H PRN PRN Reason: Pain MILD(1-3)/Fever >100.5/TRUJILLO Magnesium Hydroxide (Magnesium Hydroxide (Mom) Oral Liqd Udc) 30 ml PO Q4H PRN PRN Reason: Constipation Morphine Sulfate (Morphine 2 Mg/1 Ml Inj) 2 mg IV Q4H PRN PRN Reason: Pain, Moderate (4-6) Ondansetron HCl (Ondansetron 4 Mg/2 Ml Inj) 4 mg IV Q8H PRN PRN Reason: Nausea And Vomiting Sodium Chloride (Sodium Chloride 0.9% 10 Ml Flush Syringe) 10 ml IV BID CONNIE Sodium Chloride (Sodium Chloride 0.9% 10 Ml Flush Syringe) 10 ml IV PRN PRN PRN Reason: LINE FLUSH Review of Systems Constitutional: no fever, no chills Ears, nose, mouth and throat: no nasal congestion, no sore throat Cardiovascular: no chest pain, no palpitations Respiratory: no cough, no shortness of breath Gastrointestinal: abdominal pain, no nausea, no vomiting, no diarrhea Genitourinary Female: no pelvic pain, no flank pain, no dysuria, no hematuria Menstruation: no period heavy Musculoskeletal: no neck pain, no low back pain Integumentary: no rash, no pruritis Neurological: no headaches, no confusion Psychiatric: no anxiety, no depression Endocrine: no polyphagia, no polydipsia, no polyuria, no nocturia Exam - Constitutional Vitals: Temp Pulse Resp BP Pulse Ox 97.9 F 69 17 97/48 100 11/17/20 22:00 11/17/20 22:30 11/17/20 22:30 11/17/20 22:30 11/17/20 22:30 General appearance: Present: no acute distress, well-nourished, other (Mild pallor) - EENT Eyes: Present: PERRL, EOM intact. Absent: scleral icterus ENT: hearing intact, clear oral mucosa, dentition normal - Neck Neck: Present: supple, normal ROM - Respiratory Respiratory effort: normal Respiratory: bilateral: CTA - Cardiovascular Rhythm: regular Heart Sounds: Present: S1 & S2. Absent: gallop, systolic murmur, diastolic murmur, rub, click - Extremities Extremities: no ischemia, pulses intact, pulses symmetrical, No edema, normal temperature, normal color, Full ROM Peripheral Pulses: within normal limits - Abdominal General gastrointestinal: Present: soft, tender (Mild tenderness in the suprapubic region, no rebound tenderness and no masses), non-distended, normal bowel sounds. Absent: mass - Integumentary Integumentary: Present: clear, warm, dry, normal turgor. Absent: rash - Musculoskeletal Musculoskeletal: strength equal bilaterally - Psychiatric Psychiatric: appropriate mood/affect, intact judgment & insight, memory intact, cooperative - Neurologic Neurologic: CNII-XII intact, no focal deficits, moves all extremities Results - Labs CBC & Chem 7: 11/17/20 19:21 11/17/20 19:21 Labs: Abnormal lab results 11/17/20 11/17/20 11/17/20 Range/Units 19:21 19:21 20:38 WBC 4.1 L (4.5-11.0) K/mm3 RBC 3.48 L (3.65-5.03) M/mm3 Hgb 5.2 L* (10.1-14.3) gm/dl Hct 19.5 L* (30.3-42.9) % MCV 56 L (79-97) fl MCH 15 L (28-32) pg MCHC 26 L (30-34) % RDW 24.6 H (13.2-15.2) % Plt Count 588 H (140-440) K/mm3 Eosinophils % (Manual) 5.0 H (0.0-4.3) % BUN 6 L (7-17) mg/dL Crossmatch See Detail Assessment and Plan - Patient Problems (1) Anemia Current Visit: No Status: Acute Qualifiers: Anemia type: unspecified type Qualified Code(s): D64.9 - Anemia, unspecified Plan to address problem: Possibly secondary to menorrhagia from uterine fibroid. Patient is being scheduled for blood transfusion. Will monitor CBC. (2) Leiomyoma Onset Date: ~09/19/18 Current Visit: Yes Status: Acute Plan to address problem: We will place consult to gynecology for evaluation. 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 (3) Abdominal pain Current Visit: Yes Status: Acute Qualifiers: Abdominal location: unspecified location Qualified Code(s): R10.9 - Unspecified abdominal pain Plan to address problem: Possibly secondary to the enlarged leiomyomatous uterus. We will place patient on IV analgesic medication. We await evaluation and recommendation from gynecology. (4) DVT prophylaxis Current Visit: No Status: Acute Plan to address problem: Patient placed on sequential compression device. (5) Full code status Current Visit: Yes Status: Acute Plan to address problem: Patient is a full code.
[2020-11-18 06:03] LABS: Hemoglobin 6.4 gm/dl (10.1-14.3); Mean Corpuscular HGB Conc 29 % (30-34); Platelet Count 503 K/mm3 (140-440); Red Blood Count 3.58 M/mm3 (3.65-5.03)
[2020-11-18 06:17] LABS: Eosinophils # (Auto) 0.1 K/mm3 (0.0-0.4); Eosinophils % (Auto) 2.6 % (0.0-4.3); Lymphocytes # (Auto) 1.9 K/mm3 (1.2-5.4); Mean Corpuscular Volume 62 fl (79-97); Monocytes # (Auto) 0.3 K/mm3 (0.0-0.8); Monocytes % (Auto) 7.5 % (0.0-7.3); Red Cell Distribution Width 31.1 % (13.2-15.2)
[2020-11-18 06:19] LABS: Blood Urea Nitrogen 4 mg/dL (7-17); Calcium 8.3 mg/dL (8.4-10.2); Hemolysis Index 2
[2020-11-18 06:29] LABS: BUN/Creatinine Ratio 6
[2020-11-18] MEDS ORDERED: SODIUM CHLORIDE 0.9% 500 ML 500 ML IV NR (09:27)
--- NOTE | 2020-11-18 11:15 | Consultation ---
History of Present Illness Consult date: 11/18/20 Reason for consult: menorrhagia, pelvic pain, other (Uterine fibroids) History of present illness: This is a 39-year-old female 2 para 2 LMP 11/09/2020 who presented to the emergency room with pelvic pain and migraines. Patient states her pelvic pain started approximately 2 days ago. She has not used any medication for the pain however used BC powder for her migraines. Her evaluation in the ED revealed a hemoglobin of 5 and uterine fibroids by CT scan. Patient states she was diagnosed with fibroids approximately 17 years ago she has had 2 myomectomies. States she noted menorrhagia that started in 2011 in which she bleeds heavy 4 out of 7 days. She denies fever chills nausea vomiting. Patient also denies current vaginal bleeding. 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 denies: abnormal PAP smear, chlamydia, gonorrhea, hepatitis B, hepatitis C, herpes, HIV, syphilis, trichomonas Family/Genetic History: other (Paternal uncle colon cancer, paternal aunt cancer) Social history: no significant social history - Obstetrical History : 2 Number of Living Children: 2 #1 Method of Delivery: (Breech) #2 Method of Delivery: (Nonreassuring heart rate tracing) Medications and Allergies Allergies Allergy/AdvReac Type Severity Reaction Status Date / Time No Known Allergies Allergy Verified 02/12/19 12:27 Home Medications Medication Instructions Recorded Confirmed Last Taken Type Albuterol Mdi (or & Nicu Only) 2 puff IH QID PRN #8.5 gram 09/23/20 Unknown Rx [ProAir HFA Inhaler] guaiFENesin/DEXTROMETHORPHAN 1 each PO Q12HR PRN #20 tab.er.12h 09/23/20 Unknown Rx [Mucinex Dm ER 600-30 mg Tablet] predniSONE [Deltasone] 50 mg PO QDAY #5 tab 09/23/20 Unknown Rx Tranexamic Acid [Lysteda] 1,300 mg PO TID PRN #30 tablet 11/18/20 Unknown Rx Active Meds: Active Medications Acetaminophen (Acetaminophen 325 Mg Tab) 650 mg PO Q4H PRN PRN Reason: Pain MILD(1-3)/Fever >100.5/TRUJILLO Sodium Chloride (Nacl 0.9% 500 Ml) 500 mls @ 0 mls/hr IV ONCE NR Stop: 11/18/20 20:00 Magnesium Hydroxide (Magnesium Hydroxide (Mom) Oral Liqd Udc) 30 ml PO Q4H PRN PRN Reason: Constipation Morphine Sulfate (Morphine 2 Mg/1 Ml Inj) 2 mg IV Q4H PRN PRN Reason: Pain, Moderate (4-6) Ondansetron HCl (Ondansetron 4 Mg/2 Ml Inj) 4 mg IV Q8H PRN PRN Reason: Nausea And Vomiting Sodium Chloride (Sodium Chloride 0.9% 10 Ml Flush Syringe) 10 ml IV BID CONNIE Sodium Chloride (Sodium Chloride 0.9% 10 Ml Flush Syringe) 10 ml IV PRN PRN PRN Reason: LINE FLUSH Review of Systems All systems: negative - Vital Signs Vital signs: Vital Signs Temp Pulse Resp BP Pulse Ox 98.6 F 85 18 132/95 100 11/17/20 18:07 11/17/20 18:07 11/17/20 18:07 11/17/20 18:07 11/17/20 18:07 Temp Pulse Resp BP Pulse Ox 98.0 F 65 18 112/77 100 11/18/20 07:43 11/18/20 09:00 11/18/20 07:43 11/18/20 07:43 11/18/20 09:10 - Physical Exam Breasts: Positive: deferred Abdomen: Positive: other (Pelvic mass that extends to approximately 5 cm above the umbilicus in the midline. Pelvic exam deferred since she is not currently bleeding.) Results Result Diagrams: 11/18/20 04:36 11/18/20 04:36 Abnormal lab results 11/17/20 11/17/20 11/17/20 Range/Units 19:21 19:21 20:38 WBC 4.1 L (4.5-11.0) K/mm3 RBC 3.48 L (3.65-5.03) M/mm3 Hgb 5.2 L* (10.1-14.3) gm/dl Hct 19.5 L* (30.3-42.9) % MCV 56 L (79-97) fl MCH 15 L (28-32) pg MCHC 26 L (30-34) % RDW 24.6 H (13.2-15.2) % Plt Count 588 H (140-440) K/mm3 Lares % (Auto) (0.0-7.3) % Eosinophils % (Manual) 5.0 H (0.0-4.3) % Seg Neutrophils # (1.8-7.7) K/mm3 BUN 6 L (7-17) mg/dL Calcium (8.4-10.2) mg/dL Crossmatch See Detail 11/18/20 11/18/20 Range/Units 04:36 04:36 WBC 3.4 L (4.5-11.0) K/mm3 RBC 3.58 L (3.65-5.03) M/mm3 Hgb 6.4 L (10.1-14.3) gm/dl Hct 22.0 L (30.3-42.9) % MCV 62 L (79-97) fl MCH 18 L (28-32) pg MCHC 29 L (30-34) % RDW 31.1 H (13.2-15.2) % Plt Count 503 H (140-440) K/mm3 Lares % (Auto) 7.5 H (0.0-7.3) % Eosinophils % (Manual) (0.0-4.3) % Seg Neutrophils # 1.1 L (1.8-7.7) K/mm3 BUN 4 L (7-17) mg/dL Calcium 8.3 L (8.4-10.2) mg/dL Crossmatch All other labs normal. CT scan - abdomen: report reviewed Assessment and Plan - Patient Problems (1) Menorrhagia Onset Date: 02/15/18 Current Visit: No Status: Chronic Plan to address problem: Diagnosis explained, patient instructed to follow-up in our office for further e valuation. Will allow home with TXA this been called into the pharmacy. Questions were encouraged and answered she voiced understanding and agrees with plan of care will sign off at this point. (2) Uterine fibroid Onset Date: 02/15/18 Current Visit: No Status: Chronic Qualifiers: Plan to address problem: Patient is very informed concerning uterine fibroids. However options were reviewed patient will follow up in the office for further evaluation. At this point she is considering hysterectomy after evaluation is complete. (3) Anemia requiring transfusions Current Visit: Yes Status: Acute Plan to address problem: Patient apparently to receive a second unit of packed red blood cells. Patient states she has been off aerosol as an outpatient encouraged to continue the same. (4) Full code status Current Visit: Yes Status: Acute (5) Headache Current Visit: Yes Status: Chronic Qualifiers: Headache type: unspecified Headache chronicity pattern: unspecified pattern Intractability: not intractable Qualified Code(s): R51.9 - Headache, unspecified (6) Hx of myomectomy Current Visit: No Status: Chronic
--- NOTE | 2020-11-18 13:09 | Discharge Summary ---
Providers - Providers Date of Admission: 11/17/20 22:24 Date of discharge: 11/18/20 Attending physician: DONNA LUNSFORD 11/17/20 22:44 Consult to Physician [CONS] Routine Comment: Consulting Provider: JEWEL OWENS Physician Instructions: Reason For Exam: Menorrhagia ,H/O uterine fibroid 11/18/20 08:56 Consult to Physician [CONS] Routine Comment: spoke with Yissel at the office Consulting Provider: OWEN TOMLIN Physician Instructions: Reason For Exam: H/O uterine fibroids/ menorrhagia Primary care physician: KNAPSACK SPRAYER Hospitalization Condition: Serious Pertinent studies: Abdomen pelvis CT, head CT Hospital course: 39-year-old -Dominican female with known history of uterine fibroid, migraine headache presented to ER complaining of headache which has been ongoing for about 2 days. She has also had some abdominal pain with associated loose stools intermittently. Patient however indicates that her menstruation is always heavy and last menstrual period was on December 09, 2020. Work-up in the emergency room reveals hemoglobin of 5.2 hematocrit and hematocrit of 19.5, urinalysis was negative. CT scan of the abdomen and pelvis reveals enlarged leiomyomatous uterus. CT head showed no acute process. Patient was admitted to the hospital and transfused 2 units of packed RBC. [employer] was consulted and noted that patient is diagnosed with fibroids approximately 17 years ago and she had already 2 myomectomies. patient instructed by SUPER[employer] to follow-up in the outpatient office for further evaluation. Patient was prescribed TXA and was sent to the pharmacy. Patient was counseled to be compliant with outpatient follow-up with SU[employer] for definitive treatment for her fibroids. She verbalized understanding. Patient was then discharged home in stable condition. Her hemoglobin before discharge was 7.4. She was prescribed iron pills and recommended a repeat CBC in 1 week. Disposition: TO HOME OR SELFCARE Final Discharge Diagnosis (Prints w/discharge instructions): (1) Menorrhagia. Onset Date: 02/15/18 Current Visit: No Status: Chronic. (2) Uterine fibroid. Onset Date: 02/15/18 Current Visit: No Status: Chronic. (3) Anemia requiring transfusions. Current Visit: Yes Status: Acute. (4) Headache. Current Visit: Yes Status: Chronic. Qualifiers: Headache type: unspecified Headache chronicity pattern: unspecified pattern Intractability: not intractable Qualified Code(s): R51.9 - Headache, unspecified. (5) Hx of myomectomy. Current Visit: No Status: Chronic. Core Measure Documentation - Palliative Care Palliative Care/ Comfort Measures: Not Applicable - Core Measures Any of the following diagnoses?: none Exam - Physical Exam Narrative exam: GENERAL: well-developed and well-nourished -Dominican female lying on bed appeared to be in no discomfort. HEENT: Normocephalic. Atraumatic. No conjunctival congestion or icterus. Patient has moist mucous membranes. NECK: Supple. Trachea midline. CHEST/LUNGS: Clear to auscultated bilaterally, breathing nonlabored. No wheezes crackles or rhonchi. HEART/CARDIOVASCULAR: Regular in rate and rhythm. S1 and S2 positive. ABDOMEN: Abdomen is soft, nontender. Patient has normal bowel sounds. SKIN: There is no rash. Warm and dry. NEURO: No focal motor deficit. Follows command. MUSCULOSKELETAL: No joint effusion or tenderness. EXTRIMITY: No edema, no cyanosis or clubbing. PSYCH: Cooperative. - Constitutional Vitals: Temp Pulse Resp BP Pulse Ox 98.0 F 65 18 112/77 100 11/18/20 07:43 11/18/20 09:00 11/18/20 07:43 11/18/20 07:43 11/18/20 09:10 Plan Activity: advance as tolerated Weight Bearing Status: Weight Bear as Tolerated Diet: low fat Additional Instructions: Repeat CBC in 1 week Follow up with: OWEN TOMLIN MD [Staff Physician] - 7 Days PRIMARY CARE, [Primary Care Provider] - 7 Days Forms: Work/School Release Form Prescriptions: Ferrous Sulfate [Ferrous Sulfate 324 MG] 324 mg PO BID #60 tablet. Tranexamic Acid [Lysteda] 1,300 mg PO TID PRN #30 tablet PRN Reason: Heavy menstrual bleeding
[2020-11-18 13:42] VITALS: BP 117/71
[2020-11-18 13:42] LABS: Hematocrit 23.6 % (30.3-42.9)
== END 2020-11-18 15:10 | disposition home or self-care (01) ==
LOC: ED 16:25 → 4A 22:24
PROVIDERS: ADMIT Internal Medicine Geriatric Medicine; ATTEND Internal Medicine
DX: D25.9 Leiomyoma of uterus, unspecified (principal); D64.9 Anemia, unspecified; D50.9 Iron deficiency anemia, unspecified; N92.0 Excessive and frequent menstruation with regular cycle; G43.909 Migraine, unspecified, not intractable, without status migrainosus; Z98.891 History of uterine scar from previous surgery; Z98.51 Tubal ligation status; Z86.19 Personal history of other infectious and parasitic diseases; Z98.890 Other specified postprocedural states; Z79.899 Other long term (current) drug therapy
CPT/HCPCS: 36415; 36430; 70450; 74177; 80048; 80053; 81001; 83690; 84702; 85014; 85018; 85025; 85610; 86850; 86900; 86901; 86920; 96374; 96375; 99285; G0378; J1200; J2765; J7040; P9016; Q9967; 85007

== ENCOUNTER 2021-02-09 09:44 | Emergency (ER) | payer SELFPAY ==
[2021-02-09 10:47] VITALS: BP 125/84
--- NOTE | 2021-02-09 17:29 | Emergency Department Report ---
ED General Adult HPI - General Chief complaint: Pain General Stated complaint: knee pain/back pain Time Seen by Provider: 02/09/21 16:29 Source: patient Mode of arrival: Ambulatory Limitations: No Limitations - History of Present Illness Initial comments: 40-year-old female patient presents to emergency department with complaints of nontraumatic right knee pain and right-sided back pain for 3 days. Patient has experienced similar symptoms on prior occasions. She has never consulted a primary care provider for her joint pain. She has been taking Tylenol with limited relief. She has never been evaluated by an orthopedist or physical therapist. No history of prior orthopedic surgeries. Denies neck pain, paresthesias, numbness, weakness, skin color changes. Denies all other complaints at this time. - Related Data Previous Rx's Medication Instructions Recorded Last Taken Type Albuterol Mdi (or & Nicu Only) 2 puff IH QID PRN #8.5 gram 09/23/20 Unknown Rx [ProAir HFA Inhaler] Ferrous Sulfate [Ferrous Sulfate 324 mg PO BID #60 tablet. 11/18/20 Unknown Rx 324 MG] Tranexamic Acid [Lysteda] 1,300 mg PO TID PRN #30 tablet 11/18/20 Unknown Rx Diclofenac 1% [Diclofenac 1% 20 applic TP QID #1 tube 02/09/21 Unknown Rx topical gel] Allergies Allergy/AdvReac Type Severity Reaction Status Date / Time No Known Allergies Allergy Verified 02/12/19 12:27 ED Review of Systems ROS: Stated complaint: HEADACHE/KNEE/BACK PAIN Other details as noted in HPI Other: GENERAL: Negative for fever. CARDIOVASCULAR: Negative for chest pain. PULMONARY: Negative for shortness of breath. GASTROINTESTINAL: Negative for abdominal pain. MUSCULOSKELETAL: Positive for back pain and knee pain. NEUROLOGICAL: Negative for headache. INTEGUMENTARY: Negative for rash. ED Past Medical Hx - Past Medical History Previous Medical History?: Yes Hx Hypertension: No Hx Congestive Heart Failure: No Hx Diabetes: No Hx Renal Disease: No Hx Headaches / Migraines: Yes Hx Asthma: No Hx COPD: No Additional medical history: Anemia, History blood transfusions - Surgical History Past Surgical History?: Yes Additional Surgical History: csection x 2, Fibroid tumor removal, Tubal Ligation - Social History Smoking Status: Never Smoker - Medications Home Medications: Home Medications Medication Instructions Recorded Confirmed Last Taken Type Albuterol Mdi (or & Nicu Only) 2 puff IH QID PRN #8.5 gram 09/23/20 Unknown Rx [ProAir HFA Inhaler] Ferrous Sulfate [Ferrous Sulfate 324 mg PO BID #60 tablet. 11/18/20 Unknown Rx 324 MG] Tranexamic Acid [Lysteda] 1,300 mg PO TID PRN #30 tablet 11/18/20 Unknown Rx Diclofenac 1% [Diclofenac 1% 20 applic TP QID #1 tube 02/09/21 Unknown Rx topical gel] ED Physical Exam - General Limitations: No Limitations - Other Other exam information: General: Awake, appropriately interactive, no acute distress. Neck: Supple. Full range of motion intact. Cardiovascular: Normal peripheral perfusion. Pulmonary: No respiratory distress. Patient is speaking normally without use of accessory muscles. Skin: No apparent rashes or lesions. Neurological: No facial asymmetry. Speech is clear. Follows commands. Patient is alert and oriented. Musculoskeletal: Tenderness to palpation along the distribution of the right scapula without obvious deformity or dislocation. No step-offs. Full range of motion intact. Tenderness to palpation along the right suprapatellar area without obvious deformity, dislocation, or joint effusion. Full range of motion intact. Distal neurovascular and motor/sensory function intact. Psych: Cooperative. Appropriate mood and affect. ED Course Vital Signs 02/09/21 10:46 Temperature 98.3 F Pulse Rate 69 Respiratory 16 Rate Blood Pressure 125/84 O2 Sat by Pulse 100 Oximetry ED Medical Decision Making - Medical Decision Making Differential diagnosis including but not limited to: sprain, strain, fracture, contusion, dislocation Patient presents to the emergency department with complaints of recurrent nontraumatic polyarticular joint pain, consistent with prior episodes. She is afebrile, hemodynamically stable, neurovascularly intact, ambulatory without assistance, no overlying skin changes. No clinical evidence to suggest infectious or traumatic etiology warranting further diagnostic work-up on an emergent basis at this time. Patient will be discharged home with topical NSAIDs and referred to primary care provider for close outpatient follow-up. Patient expressed understanding and is agreeable to plan of care. Strict return precautions provided. History, exam, diagnostic testing, and current condition do not suggest worrisome pathology to warrant further testing, continued ED treatment, admission, or surgical evaluation at this point. Given the low probability of a significant medical illness, it would be more likely to result in harm than benefit to perform further testing at this stage. Discussed findings, presumptive diagnosis, need for follow-up and specific signs/symptoms that should prompt immediate return to the emergency department. Instructions were explained in detail to the patient in addition to giving written discharge information. Patient expressed understanding and was given the opportunity to ask questions, all of which were satisfactorily answered prior to discharge home. Critical care attestation.: If time is entered above; I have spent that time in minutes in the direct care of this critically ill patient, excluding procedure time. ED Disposition Clinical Impression: Joint pain Qualifiers: Joint pain location: unspecified Qualified Code(s): M25.50 - Pain in unspecified joint Disposition: - TO HOME OR SELFCARE Is pt being admited?: No Does the pt Need Aspirin: No Condition: Stable Instructions: Musculoskeletal Pain Additional Instructions: Take Tylenol every 4 hours as needed for pain. Apply Voltaren gel to affected areas as needed for pain. Apply heat to affected areas as needed for pain. Gradually advance physical activity slowly as tolerated. Follow-up with primary care provider this week. Call tomorrow to schedule an appointment. See referral information below. Return to the emergency department immediately for new or worsening symptoms. Prescriptions: Diclofenac 1% [Diclofenac 1% topical gel] 20 applic TP QID #1 tube Referrals: AMAURY PRESTON MD [Staff Physician] - 3-5 Days [facility] [Provider Group] - 3-5 Days [facility] [Outside] - 3-5 Days [facility] [Outside] - 3-5 Days [facility] [Outside] - 3-5 Days Forms: Work/School Release Form(ED) Time of Disposition: 17:29
== END 2021-02-09 18:10 | disposition home or self-care (01) ==
LOC: ED 09:44
DX: M25.561 Pain in right knee (principal); M25.50 Pain in unspecified joint; M54.9 Dorsalgia, unspecified
CPT/HCPCS: 99281

== ENCOUNTER 2021-07-02 23:26 | Emergency (ER) | payer SELFPAY ==
[2021-07-03] MEDS ORDERED: IBUPROFEN 800 MG TAB PO ONE (01:42)
[2021-07-03 03:52] LABS: Color,Urine Straw (Yellow)
[2021-07-03 03:53] LABS: Bilirubin,Urine Negative (Negative); Blood,Urine Negative (Negative); Protein,Urine <15 mg/dL mg/dL (Negative)
[2021-07-03 03:54] LABS: Mucus,Urine Few /HPF
--- NOTE | 2021-07-03 04:43 | Emergency Department Report ---
ED Back Pain/Injury HPI - General Chief Complaint: Back Pain/Injury Stated Complaint: BACK PAIN Time Seen by Provider: 07/03/21 01:42 Source: patient Limitations: No Limitations - History of Present Illness Initial Comments: Patient 40-year-old female who presents for back pain 4/10 radiating suprapubic x5 days. Patient denies fevers or chills no nausea no vomiting no loss or d ecrease in bowel or bladder function symptoms are exacerbated by movement and bending twisting as are relieved by nothing. There has been no fevers or chills. MD Complaint: back pain - Related Data Previous Rx's Medication Instructions Recorded Last Taken Type Albuterol Mdi (or & Nicu Only) 2 puff IH QID PRN #8.5 gram 09/23/20 Unknown Rx [ProAir HFA Inhaler] Ferrous Sulfate [Ferrous Sulfate 324 mg PO BID #60 tablet. 11/18/20 Unknown Rx 324 MG] Tranexamic Acid [Lysteda] 1,300 mg PO TID PRN #30 tablet 11/18/20 Unknown Rx Diclofenac 1% [Diclofenac 1% 20 applic TP QID #1 tube 02/09/21 Unknown Rx topical gel] Cyclobenzaprine [Flexeril] 10 mg PO TID PRN #20 tablet 07/03/21 Unknown Rx Menthol/Camphor [[place] 1 applicatio TP QID PRN #1 tube 07/03/21 Unknown Rx Ointment] Naproxen 500 mg PO BID PRN #30 tablet 07/03/21 Unknown Rx Allergies Allergy/AdvReac Type Severity Reaction Status Date / Time No Known Allergies Allergy Verified 02/12/19 12:27 ED Review of Systems ROS: Stated complaint: BACK PAIN Other details as noted in HPI Constitutional: denies: chills, fever Eyes: denies: eye pain, eye discharge, vision change ENT: denies: ear pain, throat pain Respiratory: denies: cough, shortness of breath, wheezing Cardiovascular: denies: chest pain, palpitations Endocrine: no symptoms reported Gastrointestinal: denies: abdominal pain, nausea, diarrhea Genitourinary: as per HPI Musculoskeletal: back pain Skin: denies: rash, lesions Neurological: denies: headache, weakness, paresthesias Psychiatric: denies: anxiety, depression Hematological/Lymphatic: denies: easy bleeding, easy bruising ED Past Medical Hx - Past Medical History Previous Medical History?: Yes Hx Hypertension: No Hx Congestive Heart Failure: No Hx Diabetes: No Hx Renal Disease: No Hx Headaches / Migraines: Yes Hx Asthma: No Hx COPD: No Additional medical history: Anemia, History blood transfusions - Surgical History Past Surgical History?: Yes Additional Surgical History: csection x 2, Fibroid tumor removal, Tubal Ligation - Social History Smoking Status: Never Smoker - Medications Home Medications: Home Medications Medication Instructions Recorded Confirmed Last Taken Type Albuterol Mdi (or & Nicu Only) 2 puff IH QID PRN #8.5 gram 09/23/20 Unknown Rx [ProAir HFA Inhaler] Ferrous Sulfate [Ferrous Sulfate 324 mg PO BID #60 tablet. 11/18/20 Unknown Rx 324 MG] Tranexamic Acid [Lysteda] 1,300 mg PO TID PRN #30 tablet 11/18/20 Unknown Rx Diclofenac 1% [Diclofenac 1% 20 applic TP QID #1 tube 02/09/21 Unknown Rx topical gel] Cyclobenzaprine [Flexeril] 10 mg PO TID PRN #20 tablet 07/03/21 Unknown Rx Menthol/Camphor [[place] 1 applicatio TP QID PRN #1 tube 07/03/21 Unknown Rx Ointment] Naproxen 500 mg PO BID PRN #30 tablet 07/03/21 Unknown Rx ED Physical Exam - General Limitations: No Limitations General appearance: alert, in no apparent distress - Head Head exam: Present: atraumatic, normocephalic - Eye Eye exam: Present: normal appearance, EOMI Pupils: Present: normal accommodation - ENT ENT exam: Present: mucous membranes moist - Neck Neck exam: Present: normal inspection, full ROM - Respiratory Respiratory exam: Present: normal lung sounds bilaterally. Absent: respiratory distress, wheezes, stridor, chest wall tenderness - Cardiovascular Cardiovascular Exam: Present: regular rate, normal rhythm, normal heart sounds. Absent: systolic murmur, diastolic murmur, rubs, gallop - GI/Abdominal GI/Abdominal exam: Present: soft, normal bowel sounds. Absent: distended, tenderness, guarding, rebound, rigid - Rectal Rectal exam: Present: deferred - Extremities Exam Extremities exam: Present: normal inspection, full ROM. Absent: tenderness - Back Exam Back exam: Present: normal inspection, full ROM, muscle spasm, paraspinal tenderness. Absent: CVA tenderness (R), CVA tenderness (L), vertebral tenderness - Neurological Exam Neurological exam: Present: alert, oriented X3, CN II-XII intact, normal gait, reflexes normal. Absent: motor sensory deficit - Expanded Neurological Exam Expanded Patient oriented to: Present: person, place, time Speech: Present: fluid speech Cranial nerves: EOM's Intact: Normal, Gag Reflex: Normal Motor strength exam: RUE: 5, LUE: 5, RLE: 5, LLE: 5 Best Eye Response (Coker): (4) open spontaneously Best Motor Response (Pasha): (6) obeys commands Best Verbal Response (Coker): (5) oriented Pasha Total: 15 - Psychiatric Psychiatric exam: Present: normal affect, normal mood - Skin Skin exam: Present: warm, dry, intact, normal color. Absent: rash ED Course Vital Signs 07/02/21 23:28 Temperature 98.0 F Pulse Rate 72 Respiratory 18 Rate Blood Pressure 129/68 O2 Sat by Pulse 100 Oximetry ED Medical Decision Making - Lab Data Labs 07/03/21 02:35 Urine Color Straw Urine Turbidity Clear Urine pH 6.0 Ur Specific [place] 1.017 Urine Protein <15 mg/dl Urine Glucose (UA) Negative Urine Ketones Negative Urine Blood Negative Urine Nitrite Negative Urine Bilirubin Negative Urine Urobilinogen 2.0 Ur Leukocyte Esterase Negative Urine WBC (Auto) 2.0 Urine RBC (Auto) 1.0 U Epithel Cells (Auto) 1.0 Urine Mucus Few - Medical Decision Making UA normal no leukocytes no nitrates. Back pain is improved with medication given in ED plan DC to home with prescriptions. Follow-up with primary care doctor in 2 to 3 days, use moist heat therapy as directed. Return to emergency department should symptoms worsen. Patient verbalized agreement and understanding with discharge plan. Patient will be DC'd home in stable condition at this time. Critical care attestation.: If time is entered above; I have spent that time in minutes in the direct care of this critically ill patient, excluding procedure time. ED Disposition Clinical Impression: Low back strain Qualifiers: Encounter type: initial encounter Qualified Code(s): S39.012A - Strain of muscle, fascia and tendon of lower back, initial encounter Disposition: HOME / SELF CARE / HOMELESS Is pt being admited?: No Does the pt Need Aspirin: No Condition: Stable Instructions: Low Back Sprain or Strain Rehab-SportsMed Additional Instructions: Take medications as prescribed, use moist heat therapy, low back exercises, follow-up with your doctor in 2 to 3 days. Return to emergency department should symptoms worsen. Prescriptions: Cyclobenzaprine [Flexeril] 10 mg PO TID PRN #20 tablet PRN Reason: Muscle Spasm Naproxen 500 mg PO BID PRN #30 tablet PRN Reason: pain Menthol/Camphor [[place] Ointment] 1 applicatio TP QID PRN #1 tube PRN Reason: Pain Referrals: CAMACHO SALVADOR MD [Staff Physician] - 3-5 Days Forms: Work/School Release Form(ED) Time of Disposition: 04:51
[2021-07-03 04:59] VITALS: BP 130/78
== END 2021-07-03 04:59 | disposition home or self-care (01) ==
LOC: ED 23:26
DX: S39.012A Strain of muscle, fascia and tendon of lower back, initial encounter (principal); G43.909 Migraine, unspecified, not intractable, without status migrainosus; Z98.890 Other specified postprocedural states; Z79.899 Other long term (current) drug therapy; X58.XXXA Exposure to other specified factors, initial encounter; Y93.89 Activity, other specified; Y92.488 Other paved roadways as the place of occurrence of the external cause; Y99.8 Other external cause status
CPT/HCPCS: 81001; 99283

== ENCOUNTER 2021-10-29 23:23 | Emergency (ER) | payer SELFPAY ==
[2021-10-30 00:38] VITALS: BP 142/67
[2021-10-30 01:15] LABS: Mean Corpuscular HGB Conc 29 % (30-34); Platelet Count 321 K/mm3 (140-440)
[2021-10-30 01:27] LABS: Alanine Aminotransferase 10 units/L (7-56); Albumin 4.2 g/dL (3.9-5); Blood Urea Nitrogen 13 mg/dL (7-17); Calcium 8.8 mg/dL (8.4-10.2); Hemolysis Index 4
[2021-10-30 01:29] LABS: BUN/Creatinine Ratio 19
[2021-10-30 01:36] LABS: Hematocrit 26.4 % (30.3-42.9); Hemoglobin 7.6 gm/dl (10.1-14.3); Mean Corpuscular Volume 63 fl (79-97); Red Cell Distribution Width 29.3 % (13.2-15.2)
[2021-10-30 02:05] LABS: Mucus,Urine FEW /HPF
[2021-10-30 02:18] LABS: Bilirubin,Urine NEG (Negative); Blood,Urine SM (Negative); Color,Urine Yellow (Yellow); Protein,Urine <15 mg/dL mg/dL (Negative); Urobilinogen,Urine < 2.0 mg/dL (<2.0)
[2021-10-30 02:19] LABS: RBC,Urine < 1.0 /HPF (0.0-6.0)
--- NOTE | 2021-10-30 03:11 | Emergency Department Report ---
ED Abdominal Pain HPI - General Chief Complaint: Abdominal Pain Stated Complaint: PAIN IN PELVIC AREA Time Seen by Provider: 10/30/21 02:11 Source: patient Mode of arrival: Ambulatory Limitations: No Limitations - History of Present Illness Initial Comments: Patient is 40 years old female with known history of uterine fibroid and chronic anemia currently on iron. Patient presented to the ER complaining of lower abdominal pain that is been going on for 3 weeks. Patient stated that she was seen by her primary care physician and ordered a CT abdomen and pelvis with IV contrast and told that she had a uterine fibroid and that she need to follow-up with psychometric examiner. Patient stated that her symptoms similar but is getting worse. Patient denied any vaginal bleeding at this moment. She also denied any fever or chills. No nausea or vomiting. MD Complaint: abdominal pain -: week(s) (3) Location: suprapubic Severity: moderate Quality: sharp Associated Symptoms: denies other symptoms - Related Data Previous Rx's Medication Instructions Recorded Last Taken Type Albuterol Mdi (or & Nicu Only) 2 puff IH QID PRN #8.5 gram 09/23/20 Unknown Rx [ProAir HFA Inhaler] Ferrous Sulfate [Ferrous Sulfate 324 mg PO BID #60 tablet.dr 11/18/20 Unknown Rx 324 MG] Tranexamic Acid [Lysteda] 1,300 mg PO TID PRN #30 tablet 11/18/20 Unknown Rx Diclofenac 1% [Diclofenac 1% 20 applic TP QID #1 tube 02/09/21 Unknown Rx topical gel] Cyclobenzaprine [Flexeril] 10 mg PO TID PRN #20 tablet 07/03/21 Unknown Rx Menthol/Camphor [[place] 1 applicatio TP QID PRN #1 tube 07/03/21 Unknown Rx Ointment] Naproxen 500 mg PO BID PRN #30 tablet 07/03/21 Unknown Rx Allergies Allergy/AdvReac Type Severity Reaction Status Date / Time No Known Allergies Allergy Verified 02/12/19 12:27 ED Review of Systems ROS: Stated complaint: PAIN IN PELVIC AREA Other details as noted in HPI Comment: All other systems reviewed and negative Constitutional: denies: chills, fever Respiratory: denies: cough, shortness of breath, SOB with exertion Cardiovascular: denies: chest pain, palpitations Gastrointestinal: abdominal pain. denies: nausea, vomiting Musculoskeletal: denies: back pain Neurological: denies: headache, weakness ED Past Medical Hx - Past Medical History Hx Hypertension: No Hx Congestive Heart Failure: No Hx Diabetes: No Hx Renal Disease: No Hx Headaches / Migraines: Yes Hx Asthma: No Hx COPD: No Additional medical history: Anemia, History blood transfusions - Surgical History Additional Surgical History: csection x 2, Fibroid tumor removal, Tubal Ligation - Social History Smoking Status: Never Smoker - Medications Home Medications: Home Medications Medication Instructions Recorded Confirmed Last Taken Type Albuterol Mdi (or & Nicu Only) 2 puff IH QID PRN #8.5 gram 09/23/20 Unknown Rx [ProAir HFA Inhaler] Ferrous Sulfate [Ferrous Sulfate 324 mg PO BID #60 tablet.dr 11/18/20 Unknown Rx 324 MG] Tranexamic Acid [Lysteda] 1,300 mg PO TID PRN #30 tablet 11/18/20 Unknown Rx Diclofenac 1% [Diclofenac 1% 20 applic TP QID #1 tube 02/09/21 Unknown Rx topical gel] Cyclobenzaprine [Flexeril] 10 mg PO TID PRN #20 tablet 07/03/21 Unknown Rx Menthol/Camphor [[place] 1 applicatio TP QID PRN #1 tube 07/03/21 Unknown Rx Ointment] Naproxen 500 mg PO BID PRN #30 tablet 07/03/21 Unknown Rx ED Physical Exam - General Limitations: No Limitations General appearance: alert, in no apparent distress - Head Head exam: Present: atraumatic, normocephalic, normal inspection - Eye Eye exam: Present: normal appearance, PERRL - ENT ENT exam: Present: normal exam, normal orophraynx, mucous membranes moist - Neck Neck exam: Present: normal inspection, full ROM. Absent: tenderness, meningismus - Respiratory Respiratory exam: Present: normal lung sounds bilaterally - Cardiovascular Cardiovascular Exam: Present: regular rate, normal rhythm, normal heart sounds - GI/Abdominal GI/Abdominal exam: Present: soft, normal bowel sounds, organomegaly, mass. Absent: distended, tenderness, guarding, rebound, rigid, bruit, pulsatile mass, hernia - Extremities Exam Extremities exam: Present: normal inspection, full ROM, normal capillary refill. Absent: tenderness - Back Exam Back exam: Present: normal inspection, full ROM. Absent: CVA tenderness (R), CVA tenderness (L) - Neurological Exam Neurological exam: Present: alert, oriented X3, CN II-XII intact, normal gait, reflexes normal. Absent: motor sensory deficit - Psychiatric Psychiatric exam: Present: normal mood - Skin Skin exam: Present: warm, intact, normal color ED Course Vital Signs 10/30/21 00:35 Temperature 98.4 F Pulse Rate 72 Respiratory 16 Rate Blood Pressure 142/67 O2 Sat by Pulse 100 Oximetry ED Medical Decision Making - Lab Data Result diagrams: 10/30/21 00:53 10/30/21 00:53 - Medical Decision Making Patient is 40 years old female with known history of uterine fibroid and chronic anemia currently on iron. Patient presented to the ER complaining of lower ab dominal pain that is been going on for 3 weeks. Patient stated that she was seen by her primary care physician and ordered a CT abdomen and pelvis with IV contrast and told that she had a uterine fibroid and that she need to follow-up with psychometric examiner. Patient stated that her symptoms similar but is getting worse. Patient denied any vaginal bleeding at this moment. She also denied any fever or chills. No nausea or vomiting. Labs reviewed and showed chronic anemia with hemoglobin of 7.2. No active bleeding. Patient had a CT scan of the abdomen and pelvis done 3 weeks ago with no significant change in her similar so there is no need to repeat images. I gave patient patient for pain medicine and referral to psychometric examiner for further management and advised her to return to the ER if she develop any new symptoms. Critical care attestation.: If time is entered above; I have spent that time in minutes in the direct care of this critically ill patient, excluding procedure time. ED Disposition Clinical Impression: Abdominal pain, Uterine fibroid, Iron deficiency anemia Disposition: HOME / SELF CARE / HOMELESS Is pt being admited?: No Condition: Stable Instructions: Abdominal Pain (ED), Abdominal Pain, Adult, Uterine Fibroids Referrals: [facility] [Provider Group] - 3-5 Days
[2021-10-30 03:24] LABS: Anisocytosis 3+; Basophils % (Manual) 0 % (0.0-1.8); Hypochromasia 2+; Total Cells Counted 100
[2021-10-30 03:25] LABS: Poikilocytosis Few; Tear Drop Cells Few
[2021-10-30 03:26] LABS: Ovalocytes Few; Platelet Estimate Consistent w Auto
== END 2021-10-30 03:30 | disposition home or self-care (01) ==
LOC: ED 23:23
DX: D25.9 Leiomyoma of uterus, unspecified (principal); D50.9 Iron deficiency anemia, unspecified; Z98.51 Tubal ligation status; Z98.890 Other specified postprocedural states
CPT/HCPCS: 36415; 80053; 81001; 84703; 85007; 85025; 99283

== ENCOUNTER 2021-11-17 23:59 | Emergency (ER) | payer BC ==
--- NOTE | 2021-11-18 00:25 | Emergency Department Report ---
ED General Adult HPI - General Stated complaint: THROAT PAIN; DIFF SWALLOWING PUI?: No Source: patient, RN notes reviewed Limitations: No Limitations - History of Present Illness Initial comments: Patient is a 40-year-old -Taj[place] female with a history of migraine headaches who presents to the ED with complaint of acute onset persistent nasal and sinus congestion, frontal sinus pressure, mild dry cough, sore throat with dysphagia for the last 1 week. Patient states that the symptoms have worsened especially in the last 4 days. Patient denies headache, dizziness, syncope, chest pain, shortness of breath, nausea and vomiting, diarrhea, palpitations, fever and chills or change in vision. MD Complaint: Sinus congestion, sore throat, dry cough -: Sudden, week(s) (1) Location: face, chest Radiation: non-radiation Quality: aching, dull Consistency: constant Improves with: none Worsens with: none Associated Symptoms: denies other symptoms, cough. denies: confusion, chest pain, diaphoresis, fever/chills, headaches, loss of appetite, malaise, nausea/vomiting, rash, seizure, shortness of breath, syncope, weakness Treatments Prior to Arrival: none - Related Data Previous Rx's Medication Instructions Recorded Last Taken Type Albuterol Mdi (or & Nicu Only) 2 puff IH QID PRN #8.5 gram 09/23/20 Unknown Rx [ProAir HFA Inhaler] Ferrous Sulfate [Ferrous Sulfate 324 mg PO BID #60 tablet.dr 11/18/20 Unknown Rx 324 MG] Tranexamic Acid [Lysteda] 1,300 mg PO TID PRN #30 tablet 11/18/20 Unknown Rx Diclofenac 1% [Diclofenac 1% 20 applic TP QID #1 tube 02/09/21 Unknown Rx topical gel] Cyclobenzaprine [Flexeril] 10 mg PO TID PRN #20 tablet 07/03/21 Unknown Rx Menthol/Camphor [[place] 1 applicatio TP QID PRN #1 tube 07/03/21 Unknown Rx Ointment] Naproxen 500 mg PO BID PRN #30 tablet 07/03/21 Unknown Rx Ondansetron [Zofran Odt] 4 mg PO Q8HR PRN #14 tab.rapdis 10/30/21 Unknown Rx traMADoL [Ultram 50 MG tab] 50 mg PO Q4HR PRN #14 tablet 10/30/21 Unknown Rx Azithromycin [Zithromax Z-LUIS] 250 mg PO DAILY #6 tab 11/18/21 Unknown Rx Benzonatate [Tessalon Perles] 100 mg PO Q8HR #30 cap 11/18/21 Unknown Rx Cetirizine HCl [Zyrtec 10mg tab] 10 mg PO DAILY #30 tab 11/18/21 Unknown Rx Ibuprofen [Motrin] 800 mg PO Q8HR PRN #30 tablet 11/18/21 Unknown Rx methylPREDNISolone [Medrol 4MG 4 mg PO DAILY #21 tab 11/18/21 Unknown Rx DOSEPAK (21 tabs)] Allergies Allergy/AdvReac Type Severity Reaction Status Date / Time No Known Allergies Allergy Verified 02/12/19 12:27 ED Review of Systems ROS: Stated complaint: THROAT PAIN; DIFF SWALLOWING Other details as noted in HPI Constitutional: denies: chills, fever Eyes: denies: eye pain, eye discharge, vision change ENT: throat pain, congestion. denies: ear pain Respiratory: cough. denies: shortness of breath, wheezing Cardiovascular: denies: chest pain, palpitations Endocrine: no symptoms reported Gastrointestinal: denies: abdominal pain, nausea, diarrhea Genitourinary: denies: urgency, dysuria, discharge Musculoskeletal: denies: back pain, joint swelling, arthralgia Skin: denies: rash, lesions Neurological: denies: headache, weakness, paresthesias Psychiatric: denies: anxiety, depression Hematological/Lymphatic: denies: easy bleeding, easy bruising ED Past Medical Hx - Past Medical History Hx Hypertension: No Hx Congestive Heart Failure: No Hx Diabetes: No Hx Renal Disease: No Hx Headaches / Migraines: Yes Hx Asthma: No Hx COPD: No Additional medical history: Anemia, History blood transfusions - Surgical History Additional Surgical History: csection x 2, Fibroid tumor removal, Tubal Ligation - Social History Smoking Status: Never Smoker - Medications Home Medications: Home Medications Medication Instructions Recorded Confirmed Last Taken Type Albuterol Mdi (or & Nicu Only) 2 puff IH QID PRN #8.5 gram 09/23/20 Unknown Rx [ProAir HFA Inhaler] Ferrous Sulfate [Ferrous Sulfate 324 mg PO BID #60 tablet. 11/18/20 Unknown Rx 324 MG] Tranexamic Acid [Lysteda] 1,300 mg PO TID PRN #30 tablet 11/18/20 Unknown Rx Diclofenac 1% [Diclofenac 1% 20 applic TP QID #1 tube 02/09/21 Unknown Rx topical gel] Cyclobenzaprine [Flexeril] 10 mg PO TID PRN #20 tablet 07/03/21 Unknown Rx Menthol/Camphor [[place] 1 applicatio TP QID PRN #1 tube 07/03/21 Unknown Rx Ointment] Naproxen 500 mg PO BID PRN #30 tablet 07/03/21 Unknown Rx Ondansetron [Zofran Odt] 4 mg PO Q8HR PRN #14 tab.rapdis 10/30/21 Unknown Rx traMADoL [Ultram 50 MG tab] 50 mg PO Q4HR PRN #14 tablet 10/30/21 Unknown Rx Azithromycin [Zithromax Z-LUIS] 250 mg PO DAILY #6 tab 11/18/21 Unknown Rx Benzonatate [Tessalon Perles] 100 mg PO Q8HR #30 cap 11/18/21 Unknown Rx Cetirizine HCl [Zyrtec 10mg tab] 10 mg PO DAILY #30 tab 11/18/21 Unknown Rx Ibuprofen [Motrin] 800 mg PO Q8HR PRN #30 tablet 11/18/21 Unknown Rx methylPREDNISolone [Medrol 4MG 4 mg PO DAILY #21 tab 11/18/21 Unknown Rx DOSEPAK (21 tabs)] ED Physical Exam - General General appearance: alert, in no apparent distress - Head Head exam: Present: atraumatic, normocephalic, normal inspection - Eye Eye exam: Present: normal appearance, PERRL, EOMI Pupils: Present: normal accommodation - ENT ENT exam: Present: mucous membranes moist, TM's normal bilaterally, normal external ear exam, other (Grossly congested nasal passages; mild erythematous oropharynx with mild exudates) - Neck Neck exam: Present: normal inspection, full ROM. Absent: tenderness - Respiratory Respiratory exam: Present: normal lung sounds bilaterally. Absent: respiratory distress, wheezes, chest wall tenderness, accessory muscle use, prolonged expiratory, other - Cardiovascular Cardiovascular Exam: Present: regular rate, normal rhythm, normal heart sounds. Absent: systolic murmur, diastolic murmur, rubs, gallop - GI/Abdominal GI/Abdominal exam: Present: soft, normal bowel sounds. Absent: tenderness, guarding, hyperactive bowel sounds, hypoactive bowel sounds, organomegaly - Extremities Exam Extremities exam: Present: normal inspection, full ROM, normal capillary refill - Back Exam Back exam: Present: normal inspection, full ROM. Absent: tenderness, CVA tenderness (R), CVA tenderness (L), muscle spasm, paraspinal tenderness, vertebral tenderness - Neurological Exam Neurological exam: Present: alert, oriented X3, CN II-XII intact, normal gait, reflexes normal - Psychiatric Psychiatric exam: Present: normal affect, normal mood - Skin Skin exam: Present: warm, dry, intact, normal color. Absent: rash ED Course Vital Signs 11/18/21 00:09 Temperature 99.0 F Pulse Rate 90 Respiratory 18 Rate Blood Pressure 144/92 O2 Sat by Pulse 98 Oximetry ED Medical Decision Making - Medical Decision Making This is a 40-year-old -[place]aj[place] female with a history of migraine headaches who presents to the ED with complaint of acute onset persistent nasal and sinus congestion, frontal sinus pressure, mild dry cough, sore throat with dysphagia for the last 1 week. Patient states that the symptoms have worsened especially in the last 4 days. In the ED, patient is alert and oriented x3 and is not in any distress. Patient will discharge home on medications and advised to follow-up with her primary care physician in 7 to 10 days for reevaluation. Patient was advised return to the ED immediately if symptoms get worse. - Differential Diagnosis URI; bacterial tonsillitis; bacterial pharyngitis; bronchitis; rhinitis Critical care attestation.: If time is entered above; I have spent that time in minutes in the direct care of this critically ill patient, excluding procedure time. ED Disposition Clinical Impression: Acute upper respiratory infection, Acute bacterial tonsillitis, Acute bacterial pharyngitis Acute bronchitis Qualifiers: Bronchitis organism: other organism Qualified Code(s): J20.8 - Acute bronchitis due to other specified organisms Disposition: 01 HOME / SELF CARE / HOMELESS Is pt being admited?: No Does the pt Need Aspirin: No Condition: Stable Instructions: Tonsillitis, [id number], Cough, Adult, [id number], Acute Bronchitis, Adult, [id number], Upper Respiratory Infection, Adult, [id number], Pharyngitis, [id number], Sore Throat, [id number], Acute Bronchitis (ED) Additional Instructions: Take medication with food, drink plenty of fluids and follow-up with your primary care physician in 7 to 10 days for reevaluation. Return to the ED immediately if symptoms get worse. Prescriptions: methylPREDNISolone [Medrol 4MG DOSEPAK (21 tabs)] 4 mg PO DAILY #21 tab Ibuprofen [Motrin] 800 mg PO Q8HR PRN #30 tablet PRN Reason: Pain , Severe (7-10) Benzonatate [Tessalon Perles] 100 mg PO Q8HR #30 cap Azithromycin [Zithromax Z-LUIS] 250 mg PO DAILY #6 tab Cetirizine HCl [Zyrtec 10mg tab] 10 mg PO DAILY #30 tab Referrals: [facility] [Provider Group] - 3-5 Days Time of Disposition: 00:30 Print Language: BELARUSIAN
[2021-11-18 00:26] VITALS: BP 144/92
== END 2021-11-18 01:45 | disposition home or self-care (01) ==
LOC: ED 23:59
DX: J06.9 Acute upper respiratory infection, unspecified (principal); J03.90 Acute tonsillitis, unspecified; J20.9 Acute bronchitis, unspecified
CPT/HCPCS: 99282

== ENCOUNTER 2021-12-18 13:48 | Emergency (ER) | payer BC ==
[2021-12-18] MEDS ORDERED: ONDANSETRON 4 MG ODT TAB PO ONE (21:15)
[2021-12-18] MEDS ORDERED: oxyCODONE /ACETAMINOPHEN 5-325MG TAB PO ONE (21:16)
[2021-12-18] MEDS ORDERED: medroxyPROGESTERone ACETATE 5 MG TAB PO SCH (21:20)
[2021-12-18 22:03] LABS: Bilirubin,Urine NEG (Negative); Blood,Urine MOD (Negative); Color,Urine Yellow (Yellow); Mucus,Urine FEW /HPF; Protein,Urine <15 mg/dL mg/dL (Negative); Urobilinogen,Urine < 2.0 mg/dL (<2.0)
[2021-12-18 22:04] LABS: HCG Qualitative,Urine Negative (Negative)
--- NOTE | 2021-12-18 22:17 | Emergency Department Report ---
ED Abdominal Pain HPI - General Chief Complaint: Abdominal Pain Stated Complaint: PELVIC/ABD PAIN Source: patient Mode of arrival: Ambulatory Limitations: No Limitations - History of Present Illness Initial Comments: Patient is a 41-year-old -[place] female who is a A0 and with past medical history of chronic recurrent uterine fibroids, migraine headaches and iron deficiency anemia who presents to the ED with complaint of persistent diffuse lower abdominal pain due to complications of large uterine fibroids and heavy vaginal bleeding for a month. Patient states that she is scheduled for partial hysterectomy in about 3 weeks but could not wait because of the worsening pain in the lower abdomen due to uterine fibroids and heavy vaginal bleeding. Patient denies dizziness, syncope, generalized weakness, fever, chills, dysuria, urinary frequency and urgency, chest pain or shortness of breath, change in vision, nausea and vomiting or diarrhea or vaginal discharge and low back pain, traumatic injury or heavy lifting. MD Complaint: abdominal pain, other (Chronic uterine fibroids with heavy vaginal bleeding) -: Gradual, month(s) (4) Location: suprapubic Radiation: none Migration to: no migration Severity: severe Severity scale (0 -10): 10 Quality: cramping, aching, sharp Consistency: constant Improves With: nothing Worsens With: nothing Context: other (chronic uterine fibroids and heavy vaginal bleeding) Associated Symptoms: denies other symptoms. denies: nausea, vomiting, diarrhea, fever, chills, constipation, hematemesis, hematochezia, melena, hematuria, anorexia, other - Related Data LMP Date: 11/11/21 Previous Rx's Medication Instructions Recorded Last Taken Type Albuterol Mdi (or & Nicu Only) 2 puff IH QID PRN #8.5 gram 09/23/20 Unknown Rx [ProAir HFA Inhaler] Ferrous Sulfate [Ferrous Sulfate 324 mg PO BID #60 tablet.dr 11/18/20 Unknown Rx 324 MG] Tranexamic Acid [Lysteda] 1,300 mg PO TID PRN #30 tablet 11/18/20 Unknown Rx Diclofenac 1% [Diclofenac 1% 20 applic TP QID #1 tube 02/09/21 Unknown Rx topical gel] Cyclobenzaprine [Flexeril] 10 mg PO TID PRN #20 tablet 07/03/21 Unknown Rx Menthol/Camphor [[place] 1 applicatio TP QID PRN #1 tube 07/03/21 Unknown Rx Ointment] Naproxen 500 mg PO BID PRN #30 tablet 07/03/21 Unknown Rx Ondansetron [Zofran Odt] 4 mg PO Q8HR PRN #14 tab.rapdis 10/30/21 Unknown Rx Azithromycin [Zithromax Z-LUIS] 250 mg PO DAILY #6 tab 11/18/21 Unknown Rx Benzonatate [Tessalon Perles] 100 mg PO Q8HR #30 cap 11/18/21 Unknown Rx Cetirizine HCl [Zyrtec 10mg tab] 10 mg PO DAILY #30 tab 11/18/21 Unknown Rx methylPREDNISolone [Medrol 4MG 4 mg PO DAILY #21 tab 11/18/21 Unknown Rx DOSEPAK (21 tabs)] Ibuprofen [Motrin 800 MG tab] 800 mg PO Q8HR PRN #30 tablet 12/18/21 Unknown Rx traMADoL [Ultram 50 MG tab] 50 mg PO Q4HR PRN #15 tablet 12/18/21 Unknown Rx Allergies Allergy/AdvReac Type Severity Reaction Status Date / Time No Known Allergies Allergy Verified 12/18/21 15:12 ED Review of Systems ROS: Stated complaint: PELVIC/ABD PAIN Other details as noted in HPI Constitutional: denies: chills, fever Eyes: denies: eye pain, eye discharge, vision change ENT: denies: ear pain, throat pain Respiratory: denies: cough, shortness of breath, wheezing Cardiovascular: denies: chest pain, palpitations Endocrine: no symptoms reported Gastrointestinal: abdominal pain (diffuse lower abdominal pain). denies: nausea, vomiting, diarrhea Genitourinary: denies: urgency, dysuria, discharge Musculoskeletal: denies: back pain, joint swelling, arthralgia Skin: denies: rash, lesions Neurological: denies: headache, weakness, paresthesias Psychiatric: denies: anxiety, depression Hematological/Lymphatic: denies: easy bleeding, easy bruising ED Past Medical Hx - Past Medical History Hx Hypertension: No Hx Congestive Heart Failure: No Hx Diabetes: No Hx Renal Disease: No Hx Headaches / Migraines: Yes Hx Asthma: No Hx COPD: No Additional medical history: Anemia, History blood transfusions, fibroids - Surgical History Additional Surgical History: csection x 2, Fibroid tumor removal, Tubal Ligation - Social History Smoking Status: Never Smoker - Medications Home Medications: Home Medications Medication Instructions Recorded Confirmed Last Taken Type Albuterol Mdi (or & Nicu Only) 2 puff IH QID PRN #8.5 gram 09/23/20 Unknown Rx [ProAir HFA Inhaler] Ferrous Sulfate [Ferrous Sulfate 324 mg PO BID #60 tablet. 11/18/20 Unknown Rx 324 MG] Tranexamic Acid [Lysteda] 1,300 mg PO TID PRN #30 tablet 11/18/20 Unknown Rx Diclofenac 1% [Diclofenac 1% 20 applic TP QID #1 tube 02/09/21 Unknown Rx topical gel] Cyclobenzaprine [Flexeril] 10 mg PO TID PRN #20 tablet 07/03/21 Unknown Rx Menthol/Camphor [[place] 1 applicatio TP QID PRN #1 tube 07/03/21 Unknown Rx Ointment] Naproxen 500 mg PO BID PRN #30 tablet 07/03/21 Unknown Rx Ondansetron [Zofran Odt] 4 mg PO Q8HR PRN #14 tab.rapdis 10/30/21 Unknown Rx Azithromycin [Zithromax Z-LUIS] 250 mg PO DAILY #6 tab 11/18/21 Unknown Rx Benzonatate [Tessalon Perles] 100 mg PO Q8HR #30 cap 11/18/21 Unknown Rx Cetirizine HCl [Zyrtec 10mg tab] 10 mg PO DAILY #30 tab 11/18/21 Unknown Rx methylPREDNISolone [Medrol 4MG 4 mg PO DAILY #21 tab 11/18/21 Unknown Rx DOSEPAK (21 tabs)] Ibuprofen [Motrin 800 MG tab] 800 mg PO Q8HR PRN #30 tablet 12/18/21 Unknown Rx traMADoL [Ultram 50 MG tab] 50 mg PO Q4HR PRN #15 tablet 12/18/21 Unknown Rx ED Physical Exam - General Limitations: No Limitations General appearance: alert, in no apparent distress - Head Head exam: Present: atraumatic, normocephalic, normal inspection - Eye Eye exam: Present: normal appearance, PERRL, EOMI - ENT ENT exam: Present: normal exam, normal orophraynx, mucous membranes moist, TM's normal bilaterally, normal external ear exam - Neck Neck exam: Present: normal inspection, full ROM. Absent: tenderness - Respiratory Respiratory exam: Present: normal lung sounds bilaterally. Absent: respiratory distress, wheezes, rales, rhonchi, chest wall tenderness, accessory muscle use, decreased breath sounds, prolonged expiratory - Cardiovascular Cardiovascular Exam: Present: regular rate, normal rhythm, normal heart sounds. Absent: systolic murmur, diastolic murmur, rubs, gallop - GI/Abdominal GI/Abdominal exam: Present: soft, tenderness (suprapubic tenderness with grossly palpable uterine fibroid masses), normal bowel sounds, other (abdominal distension with grossly palpable large uterine fibroids). Absent: guarding, rebound, hyperactive bowel sounds, hypoactive bowel sounds - Extremities Exam Extremities exam: Present: normal inspection, full ROM, normal capillary refill. Absent: tenderness - Back Exam Back exam: Present: normal inspection, full ROM. Absent: tenderness, CVA tenderness (R), CVA tenderness (L), muscle spasm, paraspinal tenderness, vertebral tenderness - Neurological Exam Neurological exam: Present: alert, oriented X3, CN II-XII intact, normal gait, reflexes normal - Psychiatric Psychiatric exam: Present: normal affect, normal mood - Skin Skin exam: Present: warm, dry, intact, normal color. Absent: rash ED Course Vital Signs 12/18/21 12/18/21 15:09 22:05 Temperature 98.5 F Pulse Rate 82 Respiratory 16 20 Rate Blood Pressure 95/74 O2 Sat by Pulse 100 Oximetry ED Medical Decision Making - Medical Decision Making This is a 41-year-old -[place] female who is a A0 and with past medical history of chronic recurrent uterine fibroids, migraine headaches and i maura deficiency anemia who presents to the ED with complaint of persistent diffuse lower abdominal pain due to complications of large uterine fibroids and heavy vaginal bleeding for a month. Patient states that she is scheduled for partial hysterectomy in about 3 weeks but could not wait because of the worsening pain in the lower abdomen due to uterine fibroids and heavy vaginal bleeding. In the ED, patient is alert and oriented x3 and is not in any distress. Patient was treated for pain in the ED and urinalysis is unremarkable except for gross hematuria. On reevaluation, patient pain is well controlled medication. Patient symptoms are chronic due to chronic uterine fibroids confirmed by physical exam. Patient was discharged home on pain medications and advised to follow-up with her [facility]ATE in 7 to 10 days for reevaluation or return to the ED immediately if symptoms get worse. - Differential Diagnosis uterine fibroids; Dysfunctional Uterine Bleeding; UTI; Critical care attestation.: If time is entered above; I have spent that time in minutes in the direct care of this critically ill patient, excluding procedure time. ED Disposition Clinical Impression: Menometrorrhagia, Dysfunctional or functional uterine hemorrhage Uterine fibroid Qualifiers: Uterine leiomyoma location: unspecified location Qualified Code(s): D25.9 - Leiomyoma of uterus, unspecified Abdominal pain Qualifiers: Abdominal location: lower abdomen, unspecified Qualified Code(s): R10.30 - Lower abdominal pain, unspecified Disposition: HOME / SELF CARE / HOMELESS Is pt being admited?: No Does the pt Need Aspirin: No Condition: Stable Instructions: Abdominal Pain (ED), Uterine Fibroids, [id number], Abdominal Pain, Adult, Viea-ed-[id number], Metrorrhagia, [id number], Menorrhagia, [id number], Abnormal Uterine Bleeding, [id number] Additional Instructions: Take medication with food, drink plenty of fluids and follow-up with your [facility]ICE [facility]OCI[facility] physician in 7 to 10 days for reevaluation. Return to the ED immediately if symptoms get worse. Prescriptions: Ibuprofen [Motrin 800 MG tab] 800 mg PO Q8HR PRN #30 tablet PRN Reason: Pain , Severe (7-10) traMADoL [Ultram 50 MG tab] 50 mg PO Q4HR PRN #15 tablet PRN Reason: Pain Referrals: ARIANA RAMOS MD [Staff Physician] - 7-10 days Forms: Work/School Release Form(ED) Time of Disposition: 22:21 Print Language: ERITREAN
[2021-12-18 23:13] VITALS: BP 118/61
== END 2021-12-18 23:15 | disposition home or self-care (01) ==
LOC: ED 13:48
DX: N92.1 Excessive and frequent menstruation with irregular cycle (principal); N93.8 Other specified abnormal uterine and vaginal bleeding; D25.9 Leiomyoma of uterus, unspecified; R10.30 Lower abdominal pain, unspecified
CPT/HCPCS: 81001; 81025; 99283; J3490; Q0162

== ENCOUNTER 2022-03-20 16:01 | Emergency (ER) | payer BC ==
[2022-03-20] MEDS ORDERED: ACETAMINOPHEN 325 MG TAB PO ONE (22:05)
[2022-03-20] MEDS ORDERED: IBUPROFEN 600 MG TAB PO ONE (22:05)
--- NOTE | 2022-03-20 22:08 | Emergency Department Report ---
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 Has not taken any medication [id number]. Pain mildly aching and throbbing. Does not radiate anywhere. Denies additional injuries or complaints. The patient was evaluated in the emergency department for symptoms described in the history of present illness. He/she was evaluated in the context of the global COVID-19 pandemic, which necessitated consideration that the patient might be at risk for infection with the virus that causes COVID-19. Institutional protocols and algorithms that pertain to the evaluation of patients at risk for COVID-19 are in a state of rapid change based on information released by regulatory bodies including the CDC and federal and state organizations. These policies and algorithms were followed during the patient's care in the emergency department. Please note that these policies, procedures and recommendations changed on a rapid basis. ED Review of Systems ROS: Stated complaint: RIGHT WRIST INJURY Other details as noted in HPI Comment: All other systems reviewed and negative Musculoskeletal: arthralgia, myalgia ED Past Medical Hx - Past Medical History Hx Hypertension: No Hx Congestive Heart Failure: No Hx Diabetes: No Hx Renal Disease: No Hx Headaches / Migraines: Yes Hx Asthma: No Hx COPD: No Additional medical history: Anemia, History blood transfusions, fibroids - Surgical History Additional Surgical History: csection x 2, Fibroid tumor removal, Tubal Ligation - Social History Smoking Status: Never Smoker - Medications Home Medications: Home Medications Medication Instructions Recorded Confirmed Last Taken Type Albuterol Mdi (or & Nicu Only) 2 puff IH QID PRN #8.5 gram 09/23/20 Unknown Rx [ProAir HFA Inhaler] Ferrous Sulfate [Ferrous Sulfate 324 mg PO BID #60 tablet. 11/18/20 Unknown Rx 324 MG] Tranexamic Acid [Lysteda] 1,300 mg PO TID PRN #30 tablet 11/18/20 Unknown Rx Diclofenac 1% [Diclofenac 1% 20 applic TP QID #1 tube 02/09/21 Unknown Rx topical gel] Cyclobenzaprine [Flexeril] 10 mg PO TID PRN #20 tablet 07/03/21 Unknown Rx Menthol/Camphor [[place] 1 applicatio TP QID PRN #1 tube 07/03/21 Unknown Rx Ointment] Naproxen 500 mg PO BID PRN #30 tablet 07/03/21 Unknown Rx Ondansetron [Zofran Odt] 4 mg PO Q8HR PRN #14 tab.rapdis 10/30/21 Unknown Rx Azithromycin [Zithromax Z-LUIS] 250 mg PO DAILY #6 tab 11/18/21 Unknown Rx Benzonatate [Tessalon Perles] 100 mg PO Q8HR #30 cap 11/18/21 Unknown Rx Cetirizine HCl [Zyrtec 10mg tab] 10 mg PO DAILY #30 tab 11/18/21 Unknown Rx methylPREDNISolone [Medrol 4MG 4 mg PO DAILY #21 tab 11/18/21 Unknown Rx DOSEPAK (21 tabs)] Ibuprofen [Motrin 800 MG tab] 800 mg PO Q8HR PRN #30 tablet 12/18/21 Unknown Rx Acetaminophen [Non-Aspirin Extra 500 mg PO Q6HR PRN #30 tablet 03/20/22 Unknown Rx Strength] Ibuprofen [Motrin] 600 mg PO Q8H PRN #30 tablet 03/20/22 Unknown Rx Upper Extremity Exam - Exam General: Vital signs noted. No distress. Alert and acting appropriately. No facial droop. Tongue midline. Extraocular movements intact bilaterally. Facial sensation intact to light touch in V1, V2, V3 distribution bilaterally. 5 and a 5 strength in 4 extremities. Sensation intact to light touch in 4 extremities. 2+ pulses noted in the bilateral upper and lower extremities. There is no palpable cord. negative Homans sign. Muscular compartments are soft. The pelvis is stable. Thumb range of motion and finger range of motion intact in the right upper extremity. Muscular compartments are soft. Sensation is intact to light touch in the deltoid, median, radial, ulnar distribution Head and Torso: No HEENT Abnormality, No Neck Tenderness, No Chest/Lungs Abnormality, No Abdominal Tenderness, No Back Tenderness Shoulder Exam: Yes Normal Range of Motion in Shoulder, No Shoulder Tenderness, No Clavicle Tenderness, No Shoulder Deformity, No AC Joint Tenderness Arm Exam: No Arm/Humerus Tenderness, No Arm Deformity Elbow: Yes Normal Range of Motion in Elbow, No Elbow Tenderness, No Elbow Deformity Forearm: No Forearm Tenderness, No Forearm Deformity, No Pain with Pronation, No Pain with Supination Wrist: Yes Normal ROM in Wrist, No Wrist Tenderness, No Wrist Deformity, No Snuffbox Tenderness, No Pain with Axial Thumb Compression Hand: Yes Normal ROM in Digit(s), No Hand Tenderness, No Hand Deformity, No Digit Tenderness, No Digit(s) Deformity, No Tendon Dysfunction CMS Exam: Yes Normal Distal Pulses, Yes Normal Capillary Refill, Yes Normal Distal Sensation, No Broken Skin ED Course Vital Signs 03/20/22 16:05 Temperature 98.6 F Pulse Rate 73 Respiratory 20 Rate Blood Pressure 130/76 O2 Sat by Pulse 100 Oximetry ED Medical Decision Making - Lab Data Vital Signs 03/20/22 16:05 Temperature 98.6 F Pulse Rate 73 Respiratory 20 Rate Blood Pressure 130/76 O2 Sat by Pulse 100 Oximetry - Medical Decision Making Differential diagnosis, include not limited to: Sprain, strain, overuse injury Assessment and plan: 41-year-old female who is right-hand dominant, who states that she is not , presenting with subacute pain to distal forearm and hand. Compartments soft, neurovascularly intact, no significant bony tenderness, range of motion intact. Rest, ice, compression, elevation, Tylenol, Motrin, weightbearing as tolerated, avoidance of heavy lifting. All questions answered. Return precautions reviewed. Critical care attestation.: If time is entered above; I have spent that time in minutes in the direct care of this critically ill patient, excluding procedure time. ED Disposition Clinical Impression: Right forearm pain Disposition: 01 HOME / SELF CARE / HOMELESS Is pt being admited?: No Does the pt Need Aspirin: No Condition: Good Instructions: RICE Therapy for Routine Care of Injuries Additional Instructions: Avoid heavy lifting. Alternate ice packs and heat packs as needed for physical pain. Participate in range of motion activities as tolerated. Take the pain medications as prescribed, needed and directed. Follow-up with a primary care doctor within the next 2 to 3 weeks. Please return to the emergency room right away with new pain, worsened pain, migration of pain, projectile vomiting, change in mental status, confusion, inability tolerate liquid feeds, new, worsened or different symptoms not present on the initial emergency room evaluation Prescriptions: Ibuprofen [Motrin] 600 mg PO Q8H PRN #30 tablet PRN Reason: Pain Acetaminophen [Non-Aspirin Extra Strength] 500 mg PO Q6HR PRN #30 tablet PRN Reason: Pain , Severe (7-10) Referrals: [facility] [Provider Group] - 7-10 days Forms: Work/School Release Form(ED)
[2022-03-20 23:18] VITALS: BP 134/78
== END 2022-03-20 23:19 | disposition home or self-care (01) ==
LOC: ED 16:01
DX: M79.631 Pain in right forearm (principal); G43.909 Migraine, unspecified, not intractable, without status migrainosus; Z98.890 Other specified postprocedural states; Z79.899 Other long term (current) drug therapy
CPT/HCPCS: 99282